=== PATIENT | female | born 1990 | race Caucasian/White ===

== ENCOUNTER 2020-12-10 16:53 | Outpatient (REF) | payer BC, SELFPAY ==
[2020-12-10 19:49] LABS: Bilirubin Negative (Negative); Blood Negative (Negative); Clarity Clear (Clear); Glucose Negative (Negative); Ketones Trace mg/dL (Negative); Leukocyte Esterase Negative (Negative); Nitrite Positive (Negative); Specific Gravity 1.015 (1.005-1.025); Urobilinogen 0.2 EU/dL (Up TO 0.2)
[2020-12-10 20:12] LABS: FREE T4 0.96 ng/dL (0.76-1.46); TSH 0.78 uIU/mL (0.36-3.74)
[2020-12-10 20:20] LABS: Bacteria Many HPF (Negative); C & S Indicated? Yes; Casts Negative LPF (Negative); Crystals Negative HPF (Negative); Epithelial Cells Few HPF (Negative); Mucus Negative (Negative); RBC Negative HPF (0-2)
== END 2020-12-10 16:54 | disposition home or self-care (01) ==
LOC: NCHCN 16:53
PROVIDERS: PCP Physician Assistant; Visit Provider Physician Assistant
DX: N32.81 Overactive bladder (principal); K59.09 Other constipation
CPT/HCPCS: 87077; 81003; 81015; 84439; 84443; 87086; 87186

== ENCOUNTER 2022-01-04 15:00 | Outpatient (REF) | payer BC, SELFPAY ==
--- NOTE | 2022-01-04 14:58 | PAPFT_PTH ---
PATIENT: Olya Trujillo [id number] AGE/SX: 31/F ROOM: RE01/04/[address]: Malcolm Spring : 1990 BED: DIS: 01/04/2022 SPEC #: [id number] RECD: 01/05/22 12:50 STATUS: MASSIMO REMaximion #: [id number] MEGHAN: 01/04/22 14:[address]: Malcolm Spring DEPT: [facility] Cytology RECD BY: Lisa Tena Tissues: 1 - CX/ENDOCX FOR PAP SMEARS Procedures: PAP THIN PREP/UVM Screening Comments: [id number] (CHLAMYDIA/GC)
[2022-01-06 15:01] LABS: Chlamydia Result Negative (Negative); GC Result Negative (Negative)
== END 2022-01-04 15:01 | disposition home or self-care (01) ==
LOC: NCHCN 15:00
PROVIDERS: PCP Physician Assistant; Visit Provider Physician Assistant
DX: Z12.4 Encounter for screening for malignant neoplasm of cervix (principal); Z11.3 Encounter for screening for infections with a predominantly sexual mode of transmission
CPT/HCPCS: 87491; 87591; 88142

== ENCOUNTER 2022-04-21 18:20 | Outpatient (REF) | payer OTHER, SELFPAY ==
[2022-04-23 08:54] LABS: HBs Antibody, Quant <3.1 mIU/mL (See Note); Hepatitis B Surface Ab Negative (See Note)
[2022-04-23 09:39] LABS: Hepatitis C Ab w Rflx HCV PCR Negative (Negative)
[2022-04-23 10:01] LABS: HIV-1/2 Ag & Ab Screen Negative (Negative)
[2022-04-28 12:12] LABS: HSV Type 1 Ab, IgG Negative (Negative); HSV Type 2 Ab, IgG Positive (Negative)
== END 2022-04-21 18:21 | disposition home or self-care (01) ==
LOC: LBN 18:20
PROVIDERS: PCP Physician Assistant; Visit Provider Physician Assistant Medical
DX: Z11.4 Encounter for screening for human immunodeficiency virus [HIV] (principal); Z11.59 Encounter for screening for other viral diseases; Z11.3 Encounter for screening for infections with a predominantly sexual mode of transmission
CPT/HCPCS: 86706; 86803; 87389; 86695; 86696

== ENCOUNTER 2022-06-21 11:54 | Emergency (ER) | payer OTHER, SELFPAY ==
[2022-06-21 12:16] VITALS: BP 117/77; PULSE 68; RESP 18; TEMP 36.9; O2SAT 98
[2022-06-21 14:10] LABS: Bilirubin Negative (Negative); Blood Trace-lysed (Negative); Clarity Clear (Clear); Glucose Negative (Negative); Ketones Negative (Negative); Leukocyte Esterase Trace (Negative); Nitrite Negative (Negative); Specific Gravity 1.015 (1.005-1.025); Urobilinogen 0.2 EU/dL (Up TO 0.2)
[2022-06-21 14:24] LABS: Bacteria Few HPF (Negative); C & S Indicated? No; Casts Negative LPF (Negative); Crystals Negative HPF (Negative); Epithelial Cells Few HPF (Negative); Mucus Negative (Negative); Other Cells Negative (Negative); RBC 0-2 HPF (0-2)
--- NOTE | 2022-06-21 15:17 | ED.GENADUL_ITS ---
Discharge Plan Disposition Patient Disposition: HOME Condition: Good Discharge Details Clinical Impression: UTI (urinary tract infection) Primary Care Provider: Malcolm Spring ED Provider: Navdeep Irwin Home Meds and New Rx's Prescriptions: New cephalexin 500 mg capsule 500 mg PO QID 5 Days Qty: 20 0RF Discharge Instructions Instructions: Urinary Tract Infection in Women (ED) Additional Instructions: At this time you have evidence of mild urinary tract infection. Please take the antibiotic as directed. Please take cranberry concentrate to help you as you leave the infection. Please drink plenty fluids and stay well-hydrated. If you notice any worsening of your symptoms, or any new symptoms such as vomiting, diarrhea, fever, chills, shortness of breath, chest pain, numbness, weakness, or fainting , please return immediately to the emergency department for reevaluation. Please follow up with your primary care provider as soon as possible for reassessment and reevaluation. As always, it was a pleasure participating in your medical care today. Referrals: Malcolm Spring [Primary Care Provider] - Discharge Data Discharge Date/Time-TO BE ENTERED AT DEPARTURE: 06/21/22 15:35 Medical Decision Making This is a 32-year-old female past medical history positive for urinary tract infections who presents today for 4 days of burning and mild dysuria. Patient states that she feels slightly off whenever she gets a urinary tract infection, and on her last UTI she was disoriented and very confused. She denies any disorientation now, and of note this is different from what the triage note stated however this is in fact the patient's current history. She denies fever or chills. No other complaints at this time. She does admit to being sexually active with a trusted partner and they will occasionally use protection. She denies any vaginal discharge. No abdominal pain. Exam demonstrates nontender abdomen, no flank or CVA tenderness. Vital signs are stable. Urinalysis shows trace leuk esterase, and a few WBCs. Symptoms appear consistent with a mild early urinary tract infection. Will give Keflex. Symptoms inconsistent with pyelonephritis. Discussed red flags for which to return. I have extensively reviewed the treatment plan and discharge instructions with the patient. I have addressed all patient concerns at this time. The patient was made aware of what symptoms to monitor for that would warrant a return to the emergency department. Discussed the plan with the patient, they demonstrate verbal understanding and agreement with our assessment and plan at this time. The documentation in this chart was dictated using [employer] dictation software. Please excuse any dictation errors. HPI General Date/Time Provider Initiated Documentation: 06/21/22 14:07 . HPI Narrative: This is a 32-year-old female past medical history positive for urinary tract infections who presents today for 4 days of burning and mild dysuria. Patient states that she feels slightly off whenever she gets a urinary tract infection, and on her last UTI she was disoriented and very confused. She denies any disorientation now, and of note this is different from what the triage note stated however this is in fact the patient's current history. She denies fever or chills. No other complaints at this time. She does admit to b eing sexually active with a trusted partner and they will occasionally use protection. She denies any vaginal discharge. No abdominal pain. Related Data Home Medications Medication Instructions Recorded Confirmed cephalexin 500 mg capsule 500 mg PO QID 5 days #20 caps 06/21/22 Previous Rx's Medication Instructions Recorded cephalexin 500 mg capsule 500 mg PO QID 5 days #20 caps 06/21/22 General Stated Complaint: Urinary NIKUNJ: 3 Review of Systems All systems reviewed & are unremarkable except as noted in HPI and below PFSH All Active Problems UTI (urinary tract infection) (Acute) Social History Smoking risk assessment performed?: No Do you feel safe at home: Yes Do you feel safe in your relationship?: Yes Exam Narrative Exam Narrative: 1.Const: Well-nourished, Well-developed, appearing stated age 2.Eyes: PERRL, no conjunctival injection, and symmetrical lids. 3.ENT: Atraumatic external nose and ears. Moist MM. Neck: Symmetric, trachea midline, No thyromegaly. 4.CVS: +S1/S2, No murmurs or gallops. Peripheral pulses 2+ and equal in all extremities. Brisk capillary refill in all extremities. 5.RESP: Unlabored respiratory effort. Clear to auscultation bilaterally. No wheezes rales or rhonchi 6.GI: Soft, Nontender/Nondistended, No hepatosplenomegaly. No guarding or rebound. No suprapubic or abdominal tenderness. No flank or CVA tenderness. 7.MSK: Normocephalic/Atraumatic, Extremities w/o deformity or ttp No cyanosis or clubbing, Normal movement of all extremities 8.Skin: Warm, Dry. No rashes or lesions. 9.Neuro: gynecology teacher II-XII grossly intact. Sensation grossly intact, no focal neurologic deficits. 10.Psych: (AAO) x3. Appropriate mood and affect Course Vital Signs Vital signs: Vital Signs Temperature 36.9 C 06/21/22 12:16 Pulse 68 06/21/22 12:16 Respiratory Rate 18 06/21/22 12:16 Blood Pressure 117/77 06/21/22 12:16 Pulse Oximetry 98 06/21/22 12:16 Temperature 36.9 C 06/21/22 12:16 Temperature Source Oral 06/21/22 12:16 Pulse 68 06/21/22 12:16 Respiratory Rate 18 06/21/22 12:16 Respiratory Effort Non-Labored 06/21/22 13:35 Blood Pressure 117/77 06/21/22 12:16 Blood Pressure Position Sitting 06/21/22 12:16 Pulse Oximetry 98 06/21/22 12:16 Oxygen Delivery Method Room Air 06/21/22 12:16 Oxygen Flow Rate 0 06/21/22 12:16 Lab/Test Results Lab/Test Results: Laboratory Tests Range/Units 06/21/22 12:35 Urine Color (Yellow) Yellow Urine Clarity (Clear) Clear Urine pH (5-8) 7.0 Ur Specific [place] (1.005-1.025) 1.015 Urine Protein (Negative) mg/dL Negative Urine Ketones (Negative) mg/dL Negative Urine Blood (Negative) Trace-lysed H Urine Nitrite (Negative) Negative Urine Bilirubin (Negative) Negative Urine Urobilinogen (Up TO 0.2) EU/dL 0.2 Ur Leukocyte Esterase (Negative) Trace H Urine RBC (0-2) HPF 0-2 Urine WBC (0-5) HPF 3-5 Ur Epithelial Cells (Negative) HPF Few Urine Crystals (Negative) HPF Negative Urine Bacteria (Negative) HPF Few Urine Casts (Negative) LPF Negative Urine Mucus (Negative) Negative Urine Other (Negative) Negative Ur Culture Indicated? No Urine Glucose (Negative) mg/dL Negative POC- Test(urine) Negative
== END 2022-06-21 15:35 | disposition home or self-care (01) ==
PROVIDERS: Student in an Organized Health Care Education/Training Program; Emergency Provider Student in an Organized Health Care Education/Training Program; PCP Physician Assistant
DX: N39.0 Urinary tract infection, site not specified
CPT/HCPCS: 36416; 81025; 82962; 99283; 81003; 81015; 99284

== ENCOUNTER 2023-01-19 17:29 | Outpatient (REF) | payer OTHER, SELFPAY | END 2023-01-19 17:30 | disposition home or self-care (01) | LOC: NCHCN 17:29 | PROVIDERS: PCP Physician Assistant; Visit Provider Physician Assistant | DX: R30.0 Dysuria (principal) | CPT/HCPCS: 87077; 87086; 87186 ==

== ENCOUNTER 2024-05-07 02:38 | Outpatient (CLI) | payer MEDICAID, SELFPAY ==
--- OUTSIDE RECORDS SUMMARY | 2024-05-07 02:40 | XMS_ITS | Clinical Summary ---
Author Organization [facility] [place] [address] Care Team Providers Care Barrel Ribs Solderer Name Role Phone Malcolm Spring Primary Care Provider Social History Tobacco Use Types Packs/Day Years Used Date Smoking Tobacco: Never Assessed Sex and Gender Information Value Date Recorded Sex Assigned at Not on file Gender Identity Not on file Sexual Orientation Not on file Plan of Treatment Health Maintenance Due Date Last Done Comments HIV screen 01/20/2010 Hepatitis C Screening 01/20/2010 Hepatitis B vaccine (0-59 yrs) (1) 01/20/2011 Tdap adult 01/20/2011 Tetanus vaccine 01/20/2011 HPV test 01/20/2022 PAP Smear 01/20/2022 Covid-19 Vaccine ( - 2022-24 season) 2023 Influenza (Flu) vaccine (1 o f 1 - Influenza standard series) 06/10/2024 Care Teams Barrel Ribs Solderer Relationship Specialty Start Date End Date Malcolm Spring PA [facility] [address] [place], [place] [address] PCP - General Internal Medicine 08/08/21
--- OUTSIDE RECORDS SUMMARY | 2024-05-07 02:40 | XMS_ITS | Encounter Summary ---
Author Organization [facility] Address [address] [place] [address] Care Team Providers Care Wind Energy Mechanic Name Role Phone Blayne Song APRN Primary Care Provider [phone] Encounter Details Date Type Department Care Team (Late st Contact Info) Description 06/13/2018 Phlebotomy Only [facility] - [address] [address] Personal Security Specialist, Outpatient Family history of Qvobeie-Pvhog-Rmywo disease (Primary Dx) Social History Tobacco Use Types Packs/Day Years Used Date Smoking Tobacco: Never Alcohol Use Standard Drinks/Week Comments No 0 (1 standard drink = 0.6 oz pur e alcohol) Sex and Gender Information Value Date Recorded Sex Assigned at Not on file Gender Identity Not on file Sexual Orientation Not on file documented as of this encounter Plan of Treatment Not on file documented as of this encounter Procedures Procedure Name Priority Date/Time Associated Diagnosis Comments MISCELLANEOUS TEST, NON [place] Routine 06/13/2018 16:19 EDT Family history of Afzwkqi-Dmrum-Seyh h disease documented in this encounter Results * MISCELLANEOUS TEST, NON [place] (06/13/2018 16:19 EDT) Test Name TESTING FOR KNOWN FAMILIAL GENETIC MUTATION IN MPZ GENE, C.314C>T, AT [facility], 3 06/13/2018 16:11 EDT [facility] Comment:5 ML EDTA PURPLE TOP , ROOM TEMP Result LAB ORDER CORRECTION 06/13/2018 16:46 EDT [facility] Comment:ORDERED SHIP1 Date Sample Shipped 06/13/18 06/13/2018 16:31 EDT [facility] Specimen of unknown material (specimen) TOPOGRAPHY UNKNOWN / Unknown 06/13/2018 16:19 EDT 06/13/2018 16:30 EDT Rere Pabon MD CHEMISTRY & BLOOD GAS ORDERABLES [facility] [address] [place] [address] documented in this encounter Visit Diagnoses Diagnosis Family history of Rovhaen-Lysgo-Tbidz disease- Primary Family history of other neurological diseases documented in this encounter Care Teams Wind Energy Mechanic Relationship Specialty Start Date End Date Blayne Song APRN [address] [place] [address] [address] [place] [address] PCP - General 02/21/14 documented as of this encounter
--- OUTSIDE RECORDS SUMMARY | 2024-05-07 02:40 | XMS_ITS | Encounter Summary ---
Author Organization [facility] Address [address] [place] [address] Care Team Providers Care Jinriksha Driver Name Role Phone SongBrianna Tracy WARD Primary Care Provider [phone] Reason for Referral * Consult (Routine) - Closed Specialty Diagnoses / Procedures Referred By Contabdullahi salazar Referred To Contact Neurology Diagnoses Panchito Saldivar MD [address] [place] [phone] [facility] Neurology Main [place] [address] [place] [address] Referral ID Status Reason Start Date Expiration Date V isits Requested Visits Authorized [id number] Closed Specialty Services Required 02/21/2014 1 1 Question Answer Reason for Request: Evidence of altered sensorium Comments After EEG is scheduled Reason for Visit * Reason Comments Urinary Tract Infection Chronic UTI's. P t was seen yesterday and was put on ABX (?). Pt then experienced hallucinations last night per mom. Pt not placed on any narcotics. VSS, afebrile. A/O Encounter Details Date Type Department Care Team (Late st Contact Info) Description 02/21/2014 15:59 EDT - 02/21/2014 20:26 EDT Emergency [facility] Emergency Department - [address] [address] Panchito Lucero MD [address] [place] [address], [place] [phone] Emergency, MD Devika Adkins (Primary Dx) Discharge Disposition: Home or Self Care Social History Tobacco Use Types Packs/Day Years Used Date Smoking Tobacco: Never Alcohol Use Standard Drinks/Week Comments No 0 (1 standard drink = 0.6 oz pur e alcohol) Sex and Gender Information Value Date Recorded Sex Assigned at Not on file Gender Identity Not on file Sexual Orientation Not on file documented as of this encounter Last Filed Vital Signs Vital Sign Reading Time Taken Comments Blood Pressure 112/67 02/21/2014 1622 EDT Pulse 79 02/21/2014 1622 EDT Temperature 36.4 ??C (97.5 ??F) 02/21/2014 1622 EDT Respiratory Rate 16 02/21/2014 1622 EDT Oxygen Saturation 100% 02/21/2014 1622 EDT Inhaled Oxygen Concentration - - Weight 76.2 kg (168 lb) 02/21/2014 1622 EDT Height 160 cm (5' 3) 02/21/2014 1622 EDT Body Mass Index 29.76 02/21/2014 1622 EDT documented in this encounter Discharge Instructions * Discharge Instructions* Panchito Lucero MD - 02/21/2014 20:14 EDT Return to the emergency department if symptoms worsen or new symptoms develop. I discussed your case with neurology this evening. You will be scheduled for an outpatient EEG and then a followup with neurology. documented in this encounter Discharge Disposition Disposition Code Departure Means Destination Comment s Home or Self Care Walk-out Home mother driving. documented in this encounter ED Notes * Karina Ngo RN - 02/21/2014 1936 EDT Pt alert, oriented. Good thought flow. Asking appro questions. Looks well. Good color. Family in room w; her. * Elgin Balderas - 02/21/2014 1165 EDT Blood drawn via saline lock per protocol, tiger and purple tube(s) sent to lab per order. * Panchito Lucero MD - 02/21/2014 1813 EDT DOS: 02/21/2014 Chief Complaint Patient presents with ??? Urinary Tract Infection Chronic UTI's. Pt was seen yesterday and was put on ABX (?). Pt then experienced hallucinations last night per mom. Pt not placed on any narcotics. VSS, afebrile. A/O The patient is a 24 y.o. female who presents today with Urinary Tract Infection HPI Comments: The patient is a 24-year-old female with a history of recurrent urinary tract infections presents with a 2 day history of recurrent spells. Patient describes transient forgetfulness accompanied by headaches. The forgetfulness lasts from seconds to minutes . The example that she gives is that she cannot remember her middle name. Patient also describes recurrent headaches which are unusual for her. Headaches are described as being behind her eyes. Patient describes feeling nauseated. Patient also describes vomiting. Patient denies distal numbness or tingling. Patient denies focal weakness. Patient denies blurred vision but has 2-3 seconds of visual hallucinations in which the bathroom colors she described are different than what they really are and positions of objects in the bathroom are in different places. Patient states that she snaps out of these episodes. Patient denies facial pain, neck pain. Patient denies cough, chest congestion or shortness of breath. Patient denies abdominal pain but has had recurrent episodes of nausea and vomiting. Patient denies gross hematuria. Patient denies drugs or alcohol. Patient denies a family history of seizure disorder. Patient denies a history of psychiatric illness. Patient now presents for further evaluation and treatment. The history is provided by the patient. Seizures Seizure activity on arrival: no Seizure type: Partial complex Preceding symptoms: headache, nausea and vision change Preceding symptoms: no sensation of an aura present, no dizziness, no euphoria, no hyperventilationand no numbness Initial focality: None Episode characteristics: disorientation Episode characteristics: no abnormal movements, no combativeness, no eye deviation, no focal shaking, no generalized shaking, no incontinence, no stiffening and no tongue biting Postictal symptoms: no confusion, no memory loss and no somnolence Severity: Mild Duration: 2 seconds Progression: Unchanged Context: stress Context: not alcohol withdrawal, not change in medication, not sleeping less, not drug use, not family hx of seizures, not fever, not intracranial shunt, not possible hypoglycemia, not possible medication ingestion and not previous head injury Recent head injury: No recent head injuries RECREATION SPECIALIST treatment: None History of seizures: no Review of Systems Constitutional: Negative for fever and chills. HENT: Negative for congestion, sore throat, facial swelling, rhinorrhea and neck pain. Eyes: Negative for photophobia, pain and visual disturbance. Respiratory: Negative for chest tightness and shortness of breath. Gastrointestinal: Positive for nausea and vomiting. Negative for diarrhea, abdominal distention andanal bleeding. Musculoskeletal: Negative for myalgias and arthralgias. Skin: Negative for rash. Neurological: Positive for seizures and headaches. Negative for dizziness, syncope, facial asymmetry, speech difficulty, weakness, light-headedness and numbness. Hematological: Does not bruise/bleed easily. Psychiatric/Behavioral: Negative for confusion. The patient is nervous/anxious. All other systems reviewed and are negative. History reviewed. No pertinent past medical history. History reviewed. No pertinent past surgical history. No Known Allergies History Substance Use Topics ??? Smoking status: Never Smoker ??? Smokeless tobacco: Not on file ??? Alcohol Use: No No family history on file. Vital Signs Vitals Reassessment?: Yes Temp: 36.4 ??C (97.5 ??F) Temp src: Tympanic Pulse: 79 Resp: 16 SpO2: 100 % BP: 112/67 mmHg BP Device: BP Machine Patient Position: Sitting BP Cuff Location: Left arm Physical Exam Nursing note and vitals reviewed. Constitutional: She is oriented to person, place, and time. She appears well- developed and well-nourished. No distress. HENT: Head: Normocephalic and atraumatic. Right Ear: External ear normal. Left Ear: External ear normal. Nose: Nose normal. Mouth/Throat: Oropharynx is clear and moist. Eyes: Conjunctivae and EOM are normal. Pupils are equal, round, and reactive to light. Left eye exhibits no discharge. Neck: Normal range of motion. Neck supple. Cardiovascular: Normal rate, regular rhythm, normal heart sounds and intact distal pulses. Pulmonary/Chest: Effort normal and breath sounds normal. No respiratory distress. She has no wheezes. She exhibits no tenderness. Abdominal: Soft. Bowel sounds are normal. There is no tenderness. Musculoskeletal: Normal range of motion. She exhibits no edema and no tenderness. Neurological: She is alert and oriented to person, place, and time. She has normal strength and normal reflexes. No cranial nerve deficit or sensory deficit. Coordination normal. Skin: Skin is warm and dry. No rash noted. She is not diaphoretic. Psychiatric: She has a normal mood and affect. Her behavior is normal. Judgment and thought contentnormal. CT HEAD WO CONTRAST Final result not shown here.: CT HEAD (Canceled) Radiology orders: CT HEAD WO CONTRAST Imaging Results CT HEAD WO CONTRAST (Final result) Result time: 02/22/14 10:35:[address] HEAD Final result Narrative: CT HEAD WO CONTRAST 02/21/2014 6:32 PM Signs and Symptoms/Comments: Headaches Prior exam: None Technique: Axial plane from base to vertex without contrast. Coronal reformats. Soft tissue and bone windows. Findings: Scalp soft tissues are unremarkable. Bone windows are unremarkable. Visualized paranasal sinuses are clear. Mastoid air cells and tympanic cavities are well-aerated bilaterally. Mild low-lying right cerebellar tonsil. Normal position of the left cerebellar tonsil. Ventricles are normal in size and position. No shift. No hydrocephalus. No acute hyperdense intracranial hemorrhage, mass or acute infarction. Normal john-white differentiation. No extracerebral fluid collections. Basal cisterns are patent. Orbits are unremarkable. Impression: 1. Mild low-lying right cerebellar tonsil. 2. Otherwise normal CT head without contrast. 3. Visualized paranasal sinuses are clear. Mastoid air cells and tympanic cavities are well-aerated. 4. Preliminary report was provided by Dr. Grove and Gayatri to Dr. Lucero at 6:50 PM on 02/21/14. Preliminary result Narrative: PRELIMINARY REPORT CT HEAD WO CONTRAST 02/21/2014 6:32 PM Signs and Symptoms/Comments: Headaches Prior exam: None Technique: Axial plane from base to vertex without contrast. Coronal reformats. Soft tissue and bone windows. Findings: Scalp soft tissues are unremarkable. Bone windows are unremarkable. Visualized paranasal sinuses are clear. Mastoid air cells and tympanic cavities are well-aerated bilaterally. Mild low-lying right cerebellar tonsil. Normal position of the left cerebellar tonsil. Ventricles are normal in size and position. No shift. No hydrocephalus. No acute hyperdense intracranial hemorrhage, mass or acute infarction. Normal john-white differentiation. No extracerebral fluid collections. Basal cisterns are patent. Orbits are unremarkable. Impression: 1. Mild low-lying right cerebellar tonsil. 2. Otherwise normal CT head without contrast. 3. Visualized paranasal sinuses are clear. Mastoid air cells and tympanic cavities are well-aerated. 4. Preliminary report was provided by Dr. Grove and Gayatri to Dr. Lucero at 6:50 PM on 02/21/14. Procedures ED Course: A medical screening exam was performed. The patient is a 24-year-old female who presents with a 48 hour history of recurrent episodes of headache, spells of forgetfulness, and visual abnormalities. Physical exam as above. General awake alert, behaving normally with a nonfocal neurologic exam. Head CT-reviewed by myself and the radiologist, normal head CT Laboratory tests-reviewed by myself Urine toxicology-negative Urine -negative Discussed case with neurology resident Dr. Donovan Gutierres. Patient arrange to have an outpatient EEG and followup with neurology. Patient discharged with her mother. Patient asymptomatic at the time of discharge. Disposition: Discharged The patient's pain was managed to an adequate level weighing risk vs. benefit of further medications. Upon departure from the Emergency Department, the patient's pain was 0 on a zero to ten scale. Condition at departure from the Emergency Department: Good There are no discharge medications for this patient. MDM Number of Diagnoses or Management Options Spells: new, needed workup Amount and/or Complexity of Data Reviewed Clinical lab tests: ordered and reviewed Tests in the radiology section of CPT??: ordered and reviewed Discussion of test results with the performing providers: yes (Radiologist) Obtain history from someone other than the patient: yes (Patient's mother) Discuss the patient with other providers: yes (Discussed case with neurology resident) Independent visualization of images, tracings, or specimens: yes (Head CT scan, laboratory tests, toxicology screen) Risk of Complications, Morbidity, and/or Mortality Presenting problems: moderate Diagnostic procedures: moderate Management options: moderate General comments: 4 Patient Progress Patient progress: stable Final diagnoses: Spells PCP: BRIANNA SONG 02/23/2014 7:27 documented in this encounter Plan of Treatment Scheduled Referrals Name Type Priority Associated Diagnoses Orde r Schedule AMB CONS/FOLLOW UP NEUROLOGY Outpatient Referral Routine Spells Ordered: 02/21/2014 documented as of this encounter Procedures Procedure Name Priority Date/Time Associated Diagnosis Comments DRUG SCREEN 11, URINE STAT 02/21/2014 19:24 EDT POCT TEST, VISUAL READ STAT 02/21/2014 18:[address] HEAD WO CONTRAST 02/21/2014 1 8:32 EDT SCREENING GLUCOSE STAT 02/21/2014 18: 23 EDT DIFFERENTIAL STAT 02/21/2014 18:23 EDT COMPLETE BLOOD COUNT STAT 02/21/2014 18:23 EDT COMPLETE BLOOD COUNT AND DIFFERENTIAL STAT 02/21/2014 18:23 EDT BUN STAT 02/21/2014 18:23 EDT CREATININE STAT 02/21/2014 18:23 EDT ELECTROLYTES STAT 02/21/2014 18:23 EDT POCT URINE DIPSTICK, CLINITEK STAT 02/21/2014 17:01 EDT documented in this encounter Results * DRUG SCREEN COMPREHENSIVE (02/21/2014 19:24 EDT) Amphetamine Screen, Urine Negative screen. [facility] Comment: Confirmation testing available upon request. Suitable for medical purposes only. Will not detect all drugs within class. Cutoff = 1000 ng/ml Specimen type is urine. Barbiturate Screen, Urine Negative screen. [facility] Comment: Confirmation testing available upon request. Suitable for medical purposes only. Will not detect all drugs within class. Cutoff = 300 ng/ml Specimen type is urine. Benzodiazepine Screen, Urine Negative screen. [facility] Comment: Confirmation testing available upon request. Suitable for medical purposes only. Will not detect all drugs within class. Assay less sensitive to Lorazepam and metabolites. Cutoff = 200 ng/ml Specimen type is urine. Cannabinoid Scrn, Ur Negative screen. [facility] Comment: Confirmation testing available upon request. Suitable for medical purposes only. Will not detect all drugs within class. Cutoff = 50 ng/ml Specimen type is urine. Methadone Screen Negative screen. [facility] Comment: Confirmation testing available upon request. Suitable for medical purposes only. Will not detect all drugs within class. Cutoff = 300 ng/ml Specimen type is urine. Opiate Scrn, Ur Negative screen. [facility] Comment: Confirmation testing available upon request. Suitable for medical purposes only. Will not detect all drugs within class. Cutoff = 300 ng/ml Assay less sensitive to oxycodone and metabolites. Assay does not detect methadone. Specimen type is urine. Oxycodone Screen Negative screen. [facility] Comment: Confirmation testing available upon request. Suitable for medical purposes only. Will not detect all drugs within class. Cutoff = 300 ng/ml Specimen type is urine. Cocaine Metabolites Negative screen. [facility] Comment: Confirmation testing available upon request. Suitable for medical purposes only. Will not detect all drugs within class. Cutoff = 300 ng/ml Specimen type is urine. Urine specimen (specimen) URINE / Unknown 02/21/2014 19:24 EDT 02/21/2014 19:31 EDT Panchito Lucero MD GEN LAB UNIT COLLECT ORDERABLES Performing Organization Address City/State/[facility] Co de Phone Number [facility] [address] [place] [address] * POCT URINE TEST (02/21/2014 18:37 EDT) Test, Urine, POC Negative Reference Range, Negative Control Line Present Yes Background Clear? Yes Urine specimen (specimen) 02/21/2014 18:37 EDT Panchito Lucero MD POINT OF CARE TEST O RDERABLES * CT HEAD WO CONTRAST (02/21/2014 18:32 EDT) Anatomical Region Laterality Modality Other 02/21/2014 18:3 2 EDT 02/22/2014 10:35 EDT Narrative 02/22/2014 10:[address] HEAD WO CONTRAST ??02/21/2014 6:32 PM Signs and Symptoms/Comments: ??Headaches Prior exam: None Technique: Axial plane from base to vertex without contrast. Coronal reformats. Soft tissue and bone windows. Findings: Scalp soft tissues are unremarkable. Bone windows are unremarkable. Visualized paranasal sinuses are clear. Mastoid air cells and tympanic cavities are well-aerated bilaterally. Mild low-lying right cerebellar tonsil. Normal position of the left cerebellar tonsil. Ventricles are normal in size and position. No shift. No hydrocephalus. No acute hyperdense intracranial hemorrhage, mass or acute infarction. Normal john-white differentiation. No extracerebral fluid collections. Basal cisterns are patent. Orbits are unremarkable. Impression: 1. Mild low-lying right cerebellar tonsil. 2. Otherwise normal CT head without contrast. 3. Visualized paranasal sinuses are clear. Mastoid air cells and tympanic cavities are well-aerated. 4. Preliminary report was provided by Dr. Grove and Gayatri to Dr. Lucero at 6:50 PM on 02/21/14. Procedure Note 02/22/2014 CT HEAD WO CONTRAST 02/21/2014 6:32 PM Signs and Symptoms/Comments: Headaches Prior exam: None Technique: Axial plane from base to vertex without contrast. Coronal reformats. Soft tissue and bone windows. Findings: Scalp soft tissues are unremarkable. Bone windows are unremarkable. Visualized paranasal sinuses are clear. Mastoid air cells and tympanic cavities are well-aerated bilaterally. Mild low-lying right cerebellar tonsil. Normal position of the left cerebellar tonsil. Ventricles are normal in size and position. No shift. No hydrocephalus. No acute hyperdense intracranial hemorrhage, mass or acute infarction. Normal john-white differentiation. No extracerebral fluid collections. Basal cisterns are patent. Orbits are unremarkable. Impression: 1. Mild low-lying right cerebellar tonsil. 2. Otherwise normal CT head without contrast. 3. Visualized paranasal sinuses are clear. Mastoid air cells and tympanic cavities are well-aerated. 4. Preliminary report was provided by Dr. Lira to Dr. Lucero at 6:50 PM on 02/21/14. Panchito Lucero MD IMG CT ORDERABLES * DIFFERENTIAL (02/21/2014 18:23 EDT) % Neutrophils 55.8 45.5 - 79.7 % [facility] % Lymphocytes 30.8 15.0 - 46.8 % [facility] % Monocytes 10.3 1.8 - 12.0 % [facility] % Eosinophils 2.5 0.6 - 6.9 % [facility] % Basophils 0.6 0.2 - 1.4 % [facility] ABS Neutrophils 3.84 2.20 - 8.85 K/cmm [facility] ABS Lymphs 2.12 1.09 - 3.30 K/cmm [facility] ABS Monocytes 0.71 0.1 - 0.8 K/cmm [facility] ABS Eosinophils 0.17 0.03 - 0.61 K/cmm [facility] ABS Basophils 0.04 0.01 - 0.11 K/cmm [facility] Type of Diff: Automated [facility] 02/21/2014 18:2 3 EDT 02/21/2014 18:46 EDT Panchito Lucero MD HEMATOLOGY & PF4 ORD ERABLES [facility] [address] [place] [address] * HEMAGRAM (02/21/2014 18:23 EDT) WBC 6.89 4.0 - 12.4 K/cmm [facility] RBC 4.30 3.86 - 5.04 M/cmm [facility] Hemoglobin 13.0 11.6 - 15.2 gm/dl [facility] HCT 38.4 34.9 - 44.4 % [facility] MCV 89 81 - 98 fl [facility] MCH 30.3 26.7 - 33.3 pg [facility] MCHC 34.0 32.1 - 35.9 gm/dl [facility] PLT 180 141 - 320 K/cmm [facility] RDW-CV 12.7 11.7 - 14.6 % [facility] 02/21/2014 18:2 3 EDT 02/21/2014 18:46 EDT Panchito Lucero MD HEMATOLOGY & PF4 ORD ERABLES Performing Organization Address [facility] Co de Phone Number [facility] [address] [place] [address] * CREATININE (02/21/2014 18:23 EDT) Creatinine 0.61 0.52 - 1.04 mg/dl [facility] GFR, Calculated >60 >60 ml/min/1.7 3m2 [facility] Blood specimen (specimen) 02/21/2014 18:23 EDT 02/21/2014 18:46 EDT Panchito Lucero MD CHEMISTRY & BLOOD GA S ORDERABLES Performing Organization Address [facility] Co de Phone Number [facility] [address] [place] [address] * (ABNORMAL) BUN (02/21/2014 18:23 EDT) BUN <3(L) 10 - 26 mg/dl [facility] Blood specimen (specimen) 02/21/2014 18:23 EDT 02/21/2014 18:46 EDT Panchito Lucero MD CHEMISTRY & BLOOD GA S ORDERABLES Performing Organization Address [facility] Co de Phone Number [facility] [address] [place] [address] * ELECTROLYTES (02/21/2014 18:23 EDT) Sodium 141 136 - 145 mEq/L [facility] Potassium 4.1 3.5 - 5.0 mEq/L [facility] Chloride 102 96 - 110 mEq/L [facility] CO2 28 24 - 32 mEq/L [facility] Blood specimen (specimen) 02/21/2014 18:23 EDT 02/21/2014 18:46 EDT Panchito Lucero MD CHEMISTRY & BLOOD GA S ORDERABLES Performing Organization Address [facility]/ZIP Co de Phone Number [facility] [address] [place] [address] * SCREENING GLUCOSE (02/21/2014 18:23 EDT) Glucose, Screening 100 70 - 100 mg/dl [facility] Blood specimen (specimen) 02/21/2014 18:23 EDT 02/21/2014 18:46 EDT Panchito Lucero MD CHEMISTRY & BLOOD GA S ORDERABLES Performing Organization Address [facility] Co de Phone Number [facility] [address] [place] [address] * (ABNORMAL) POCT URINE DIPSTICK (02/21/2014 17:01 EDT) Color YELLOW [facility] Clarity, UA Clear [facility] Glucose Neg Neg [facility] Bilirubin Neg Neg [facility] Ketones Neg Neg [facility] Specific [place] 1.010 1.001 - 1.035 [facility] Blood Trace(A) Neg [facility] pH 7.0 4.6 - 8.0 [facility] Protein Neg Neg [facility] Urobilinogen 0.2 0.2 - 1.0 E.U./dl [facility] Nitrite Neg Neg [facility] Leuk Esterase Neg Neg HANNAH NIXON [facility]ARA bak[employer] worker ID [id number] [facility] Comment:Test performed at [facility] Urine specimen (specimen) 02/21/2014 17:01 EDT 02/21/2014 17:12 EDT Panchito Lucero MD POINT OF CARE TEST O RDERABLES Performing Organization Address [facility] Co de Phone Number [facility] [address] [place] [address] documented in this encounter Visit Diagnoses Diagnosis Spells- Primary Other convulsions documented in this encounter Orders Nursing Count Last Ordered Date First Orde red Date PULSE OXIMETRY 1 02/21/2014 documented in this encounter Care Teams Jinriksha Driver Relationship Specialty Start Date End Date Brianna Song APRN [address] [place] [address] [address] [place] [address] PCP - General 02/21/14 documented as of this encounter
--- OUTSIDE RECORDS SUMMARY | 2024-05-07 02:40 | XMS_ITS | Encounter Summary ---
Author Organization [facility] Address [address] [place] [address] Care Team Providers Care Auditor Internal Name Role Phone DuncanBlayne Tracy WARD Primary Care Provider [phone] Encounter Details Date Type Department Care Team (Late st Contact Info) Description 06/13/2018 12:28 EDT - 06/13/2018 23:59 EDT Hospital Encounter [facility] - [address] [address] Rere Pabon MD [address] [place] [id number] Discharge Disposition: Home or Self Care Social History Tobacco Use Types Packs/Day Years Used Date Smoking Tobacco: Never Alcohol Use Standard Drinks/Week Comments No 0 (1 standard drink = 0.6 oz pur e alcohol) Sex and Gender Information Value Date Recorded Sex Assigned at Not on file Gender Identity Not on file Sexual Orientation Not on file documented as of this encounter Discharge Diagnoses Diagnosis Z82.0 Family history of epilepsy and other diseases of the nervous system-Z82.0[ICD-10-CM] documented in this encounter Discharge Disposition Disposition Code Departure Means Destination Home or Self Care documented in this encounter Plan of Treatment Not on file documented as of this encounter Procedures Procedure Name Priority Date/Time Associated Diagnosis Comments PATHOLOGY - SCANNED 07/27/2018 15:29 EDT documented in this encounter Results * PATHOLOGY - SCANNED (07/27/2018 15:29 EDT) 07/27/2018 15:2 9 EDT Scan 2 Retail Performance Coach LAB INFO SERVICE AN D SUPPORT & PHONE RESULT documented in this encounter Visit Diagnoses Not on filedocumented in this encounter Care Teams Auditor Internal Relationship Specialty Start Date End Date Blayne Song APRN [address] [place] [address] [address] [place] [address] PCP - General 02/21/14 documented as of this encounter
--- OUTSIDE RECORDS SUMMARY | 2024-05-07 02:40 | XMS_ITS | Encounter Summary ---
Author Organization [facility] Address [address] [place] [address] Care Team Providers Care Automotive Glass Technician Name Role Phone Blayne Song APRN Primary Care Provider [phone] Encounter Details Date Type Department Care Team (Late st Contact Info) Description 06/13/2018 Orders Only [facility] Pediatric Genetics - [facility] [address] [place] [address] Karina Ruth, MS [address] [place], [place] [address] Family history of Ywkmgcp-Kenyr-Uhzic disease (Primary Dx) Social History Tobacco Use [...] on file documented as of this encounter Results * MISCELLANEOUS TEST, NON OTHO (06/13/2018 16:19 EDT) Test Name TESTING FOR KNOWN FAMILIAL GENETIC MUTATION IN MPZ GENE, C.314C>T, AT [facility], 3 06/13/2018 16:11 EDT [facility] Comment:5 ML EDTA PURPLE TOP , ROOM TEMP Result LAB ORDER CORRECTION 06/13/2018 16:46 EDT [facility] Comment:ORDERED SHIP1 Date Sample Shipped 06/13/18 06/13/2018 16:31 EDT [facility] Specimen of unknown material (specimen) TOPOGRAPHY UNKNOWN / Unknown 06/13/2018 16:19 EDT 06/13/2018 16:30 EDT Rere Pabon MD CHEMISTRY & BLOOD GAS ORDERABLES Performing Organization Address City/State/[facility] Co de Phone Number [facility] [address] [place] [address] documented in this encounter Visit Diagnoses Diagnosis Family history of Gklogqr-Apyja-Mdymx disease- Primary Family history of other neurological diseases documented in this encounter Care Teams Automotive Glass Technician Relationship Specialty Start Date End Date Blayne Song APRN [address] [place] [address] [address] [place], [place] [address] PCP - General 02/21/14 documented as of this encounter
--- OUTSIDE RECORDS SUMMARY | 2024-05-07 02:40 | XMS_ITS | Encounter Summary ---
Author Organization [facility] Address [address] [place] [address] Care Team Providers Care Patient Support Representative Name Role Phone Blayne Song APRN Primary Care Provider [phone] Encounter Details Date Type Department Care Team (Late st Contact Info) Description 03/14/2024 Lab Requisition [facility] Pathology & Laboratory Medicine - [facility] [address] [place] [address] Outr Resulting Lab, Provider Social History Tobacco Use Types Packs/Day Years Used Date Smoking Tobacco: Never Alcohol Use Standard Drinks/Week Comments No 0 (1 standard drink = 0.6 oz pur e alcohol) Interpersonal Safety Answer Date Record ed Physically Hurt Never 05/11/2020 Verbally Threaten Not on file 05/11/2020 Sex and Gender Information Value Date Recorded Sex Assigned at Not on file Gender Identity Not on file Sexual Orientation Not on file documented as of this encounter Plan of Treatment Not on file documented as of this encounter Procedures Procedure Name Priority Date/Time Associated Diagnosis Comments PROGESTERONE Routine 03/14/2024 14:22 EDT documented in this encounter Results * PROGESTERONE (03/14/2024 14:22 EDT) Progesterone 13.9 See Table ng/mL 03/14/2024 22:40 EDT [facility] Comment: Female Reference Ranges: PHYSIOLOGICAL STATUS ?REFERENCE RANGE ? Pre-Pubertal: ? <= 0.2 ng/mL Menstruating: (Non-) Follicular Phase: ? <= 1.4 ng/mL Luteal Phase: ? 3.3 - 25.6 ng/mL Mid-luteal Phase: ? 4.4 - 28.0 ng/mL Postmenopausal: ? <= 0.7 ng/mL : -------- First Trimester: ?11.2 - 90.0 ng/mL Second Trimester: ? 25.6 - 89.4 ng/mL Third Trimester: ?48.4 - 422.5ng/mL For ectopic , consult a pathologist. Blood VENOUS BLOOD / Unknown 03/14/2024 14:22 EDT 03/14/2024 21:37 EDT Provider Outr Resulting Lab CHEMISTRY & BLOOD GAS ORDERABLES [facility] [address] [place] [address] documented in this encounter Visit Diagnoses Not on filedocumented in this encounter Care Teams Patient Support Representative Relationship Specialty Start Date End Date Blayne Song APRN [address] [place] [address] [address] [place] [address] PCP - General 02/21/14 documented as of this encounter
--- OUTSIDE RECORDS SUMMARY | 2024-05-07 02:40 | XMS_ITS | Encounter Summary ---
Author Organization [facility] Address [address] [place] [address] Care Team Providers Care School Occupational Therapist Name Role Phone Blayne Song APRN Primary Care Provider [phone] Encounter Details Date Type Department Care Team (Late st Contact Info) Description 03/19/2024 Lab Requisition [facility] Pathology & Laboratory Medicine - [facility] [address] [place] [address] Outr Resulting Lab, Provider Social History Tobacco [...] Priority Date/Time Associated Diagnosis Comments PROGESTERONE Routine 03/19/2024 8:37 EDT documented in this encounter Results * PROGESTERONE (03/19/2024 8:37 EDT) Progesterone 17.3 See Table ng/mL 03/19/2024 22:43 EDT [facility] Comment: Female Reference Ranges: [...] a pathologist. Blood VENOUS BLOOD / Unknown 03/19/2024 8:37 EDT 03/19/2024 22:07 EDT Provider Outr Resulting Lab CHEMISTRY & BLOOD GAS ORDERABLES [facility] [address] [place] [address] documented in this encounter Visit Diagnoses Not on filedocumented in this encounter Care Teams School Occupational Therapist Relationship Specialty Start Date End Date Blayne Song APRN [address] [place] [address] [address] [place] [address] PCP - General 02/21/14 documented as of this encounter
--- OUTSIDE RECORDS SUMMARY | 2024-05-07 02:40 | XMS_ITS | Encounter Summary ---
Author Organization [facility] Address [address] [place] [address] Care Team Providers Care Semiconductors Wafer Breaker Name Role Phone Duncan Blayne Molina APRN Primary Care Provider Reason for Referral * Consult (Routine) - Closed Specialty Diagnoses / Procedures Referred By Huang salazar Referred To Contact Neurology Diagnoses Family history of genetic disease Genetic carrier Rere Pabon MD [address] [place] [address] Alexis Arcos MD [address] [place] [address] Referral ID Status Reason Start Date Expiration Date V isits Requested Visits Authorized [id number] Closed Specialty Services Required 06/28/2018 1 1 Question Answer Reason for Request: 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 Wants to discuss care. Encounter Details Date Type Department Care Team (Late st Contact Info) Description 06/28/2018 Orders Only [facility] - [facility] [place] [address] [place], [place] [address] Karina Ruth, MS [address] [place], [place] [address] Family history of genetic disease (Primary Dx); Genetic carrier Social History Tobacco Use Types Packs/Day Years Used Date Smoking Tobacco: Never Alcohol Use Standard Drinks/Week Comments No 0 (1 standard drink = 0.6 oz pur e alcohol) Sex and Gender Information Value Date Recorded Sex Assigned at Not on file Gender Identity Not on file Sexual Orientation Not on file documented as of this encounter Plan of Treatment Scheduled Referrals Name Type Priority Associated Diagnoses Orde r Schedule AMB CONS/FOLLOW UP NEUROLOGY Outpatient Referral Routine Family history of genetic disease Genetic carrier Ordered: 06/28/2018 documented as of this encounter Visit Diagnoses Diagnosis Family history of genetic disease- Primary Family history of other condition Genetic carrier Other genetic carrier status documented in this encounter Care Teams Semiconductors Wafer Breaker Relationship Specialty Start Date End Date Blayne Song APRN [address] [place] [address] [address] [place] [address] PCP - General 02/21/14 documented as of this encounter
--- OUTSIDE RECORDS SUMMARY | 2024-05-07 02:40 | XMS_ITS | Encounter Summary ---
Author Organization [facility] Address [address] [place] [address] Care Team Providers Care Director Of Special Education Name Role Phone Blayne Song APRN Primary Care Provider [phone] Encounter Details Date Type Department Care Team (Late st Contact Info) Description 04/22/2022 Lab Requisition [facility] Pathology & Laboratory Medicine - [facility] [address] [place] [address] Outr Resulting Lab, Provider Social History Tobacco [...] Procedure Name Priority Date/Time Associated Diagnosis Comments HOLD SST Today 04/21/2022 15:00 EDT HIV 1/2 ANTIGEN AND ANTIBODY, 4TH GENERATION Today 04/21/2022 15:00 EDT documented in this encounter Results * HOLD SST (04/21/2022 15:00 EDT) Hold Hold 04/22/2022 18:47 EDT [facility] Blood VENOUS BLOOD / Unknown 04/21/2022 15:00 EDT 04/22/2022 17:41 EDT Provider Outr Resulting Lab LAB INFO SER VICE AND SUPPORT & PHONE RESULT Performing Organization Address [facility] [[email or web address]] Co de Phone Number [facility] [address] [place] [address] * HIV 1/2 ANTIGEN AND ANTIBODY, 4TH GENERATION (04/21/2022 15:00 EDT) HIV 1 and 2 Antibody/p24 Antigen, 4th Generation Negative Negative 04/23/2022 9:56 EDT [facility] Comment:If acute HIV-1 infec tion is suspected in a high risk patient, submit plasma specimen for HIV-1 RNA quantitation test. Blood VENOUS BLOOD / Unknown 04/21/2022 15:00 EDT 04/22/2022 17:37 EDT Narrative [facility] - 04/23/2022 9:56 EDT Fourth Generation assay performed on the Siemens [employer] XPT. Provider Outr Resulting Lab IMMUNOLOGY A ND SEROLOGY ORDERABLES Performing Organization Address [facility] [[email or web address]] Co de Phone Number [facility] [address] [place] [address] documented in this encounter Visit Diagnoses Not on filedocumented in this encounter Care Teams Director Of Special Education Relationship Specialty Start Date End Date Blayne Song APRN [address] [place] [address] [address] [place], [place] [address] PCP - General 02/21/14 documented as of this encounter
--- OUTSIDE RECORDS SUMMARY | 2024-05-07 02:40 | XMS_ITS | Encounter Summary ---
Author Organization [facility] Address [address] [place] [address] Care Team Providers Care Data Entry Technician Name Role Phone Blayne Song APRN Primary Care Provider [phone] Reason for Visit * Reason Onset Date Comments Other 09/06/2018 Encounter Details Date Type Department Care Team (Late st Contact Info) Description 09/06/2018 Telephone [facility] Pediatric Genetics - [facility] [address] [place], [place] [address] YakelinDemetriaMela Camargo, MS [address] [place], [place] [address] Other Social History Tobacco Use Types Packs/Day Years Used Date Smoking Tobacco: Never Alcohol Use Standard Drinks/Week Comments No 0 (1 standard drink = 0.6 oz pur e alcohol) Sex and Gender Information Value Date Recorded Sex Assigned at Not on file Gender Identity Not on file Sexual Orientation Not on file documented as of this encounter Miscellaneous Notes * Telephone Encounter - Mela French, MS - 09/06/2018 1601 EST Jessica called back. She explained that she received a bill for $27.00-I said that was for the blood draw and another bill for about $125.00-I said that might be for genetic counseling. I explained that the genetic testing was free if done in 90 days. She did not expect any fee for testing and would like to discuss with Socorro Ruth upon her return from a meeting. Jessica said she was unaware ofthat there would be any charges. She does not feel that she should have to pay the bill since she was not told there would be any charges. I said I would inform Socorro Ruth of our conversation and ask her to call her back on Tuesday. Mela French MS documented in this encounter Plan of Treatment Not on file documented as of this encounter Visit Diagnoses Not on filedocumented in this encounter Care Teams Data Entry Technician Relationship Specialty Start Date End Date Blayne Song APRN [address] [place] [address] [address] [place] [address] PCP - General 02/21/14 documented as of this encounter
--- OUTSIDE RECORDS SUMMARY | 2024-05-07 02:40 | XMS_ITS | Encounter Summary ---
Author Organization [facility] Address [address] [place] [address] Care Team Providers Care Children'S Service Worker Name Role Phone Duncan Blayne Molina APRN Primary Care Provider [phone] Reason for Visit * Reason Onset Date Comments Billing Question 09/06/2018 Encounter Details Date Type Department Care Team (Late st Contact Info) Description 09/06/2018 Telephone [facility] Pediatric Genetics - [facility] [address] [place], [place] [address] Karina Ruth, [address] [place], [place] [address] Billing Question Social History Tobacco Use Types Packs/Day Years Used Date Smoking Tobacco: Never Alcohol Use Standard Drinks/Week Comments No 0 (1 standard drink = 0.6 oz pur e alcohol) Sex and Gender Information Value Date Recorded Sex Assigned at Not on file Gender Identity Not on file Sexual Orientation Not on file documented as of this encounter Miscellaneous Notes * Telephone Encounter - Mela FrenchMS - 09/06/2018 1550 EST I left a voice message for Jesisca on her phone. I explained that Ms. Ruth is out of town until Tuesday. I left my name, title and phone number for her to call me back directly. I explained that we received her message and she is correct there should be no charge for the genetic testing. There should be a charge for the genetic counseling visit and possibly for the blood draw. Mela French MS * Telephone Encounter - Marcus Hahn. - 09/06/2018 1351 EST Calling about the Genetic Testing that she thought was free if done with in the 90 day period. She wouldn't have had it done if she knew that she was going to be billed for it. She would like a call back to resolve this. I did have her talk to [facility] so that she could make them aware that there is a potential issue with this bill. Please give her a call. DB patient documented in this encounter Plan of Treatment Not on file documented as of this encounter Visit Diagnoses Not on filedocumented in this encounter Care Teams Children'S Service Worker Relationship Specialty Start Date End Date Blayne Song APRN [address] [place] [address] [address] [place] [address] PCP - General 02/21/14 documented as of this encounter
--- OUTSIDE RECORDS SUMMARY | 2024-05-07 02:40 | XMS_ITS | Encounter Summary ---
Author Organization [facility] Address [address] [place] [address] Care Team Providers Care Stator Plate Washer Name Role Phone DuncanBlayne Tracy WARD Primary Care Provider [phone] Encounter Details Date Type Department Care Team (Late st Contact Info) Description 06/13/2018 Results Only [facility] Clinical Genetics - [place] [address] [place], [place] [phone] Rere Pabon MD [address] [place] [address] Social History Tobacco Use Types Packs/Day Years [...] Procedure Name Priority Date/Time Associated Diagnosis Comments REFERRAL TEST 1 Routine 06/13/2018 16:19 EDT documented in this encounter Results * REFERRAL TEST 1 (06/13/2018 16:19 EDT) Test Name FAMILY VARIENT TESTING IN MPZ GENE 06/13/2018 16:34 EDT [facility] Result See Pathology Scanned Report in PRISM. 07/28/2018 8:20 EDT [facility] Comment:Assayed at [facility], [place], [place] Ref Lab [facility] 06/13/2018 16:34 EDT [facility] Date Sample Shipped 06/13/18 06/13/2018 16:34 EDT [facility] TOPOGRAPHY UNKNOWN / Unknown 06/13/2018 16:19 EDT 06/13/2018 16:30 EDT Rere Pabon MD LAB INFO SERVICE A ND SUPPORT & PHONE RESULT [facility] [address] [place] [address] documented in this encounter Visit Diagnoses Not on filedocumented in this encounter Care Teams Stator Plate Washer Relationship Specialty Start Date End Date Blayne Song APRN [address] [place] [address] [address] [place] [address] PCP - General 02/21/14 documented as of this encounter
--- OUTSIDE RECORDS SUMMARY | 2024-05-07 02:40 | XMS_ITS | Clinical Summary ---
Author Organization [facility] Address [address] [place] [address] Care Team Providers Care Closing Coordinator Name Role Phone Blayne Song APRN Primary Care Provider [phone] Allergies No known active allergies Medications No known medications Encounters Date Type Department Care Team Description 03/19/2024 Lab Requisition [facility] Pathology & Laboratory [facility] [address] [place] [address] Outr Resulting Lab, Provider 03/14/2024 Lab Requisition [facility] Pathology & Laboratory [facility] [address] [place] [address] Outr Resulting Lab, Provider from Last 3 Months Social History Tobacco Use Types Packs/Day Years [...] on file Sexual Orientation Not on file Obstetrics History Last Filed Vital Signs Vital Sign Reading [...] Body Mass Index 29.76 02/21/2014 1622 EDT Plan of Treatment Health Maintenance Due Date Last Done Comments Hepatitis B Vaccine (1 of 3 - 19+ 3-dose series) 01/20 COVID-19 Vaccine (2022-24 season) 2023 Hepatitis C Screen Completed 04/21/2022 Procedures Procedure Name Priority Date/Time Associated Diagnosis Comments PROGESTERONE Routine 03/19/2024 8:37 EDT PROGESTERONE Routine 03/14/2024 14:22 EDT HEPATITIS C AB W REFLEX TO HCV RNA BY PCR Routine 04/21/2022 15:00 EDT from Last 3 Months or Most Recently Relevant to Health Maintenance Results * PROGESTERONE (03/19/2024 8:37 EDT) Only the most recent of2 resultswithin the time period is included. Progesterone 17.3 See Table ng/mL 03/19/2024 22:43 EDT [facility] Comment: Female Reference Ranges: PHYSIOLOGICAL [...] Resulting Lab CHEMISTRY & BLOOD GAS ORDERABLES Performing Organization Address City/[facility] Co de Phone Number [facility] [address] [place] [address] * HEPATITIS C AB W REFLEX TO HCV RNA BY PCR (04/21/2022 15:00 EDT) Hep C Antibody Negative Negative 04/23/2022 9:35 EDT [facility] Blood VENOUS BLOOD / Unknown 04/21/2022 15:00 EDT 04/22/2022 17:37 EDT Provider Outr Resulting Lab CHEMISTRY & BLOOD GAS ORDERABLES Performing Organization Address City/[facility] Co de Phone Number [facility] [address] [place] [address] from Last 3 Months or Most Recently Relevant to Health Maintenance Care Teams Closing Coordinator Relationship Specialty Start Date End Date Blayne Song APRN [address] [place] [address] [address] [place] [address] PCP - General 02/21/14
--- OUTSIDE RECORDS SUMMARY | 2024-05-07 02:40 | XMS_ITS | Encounter Summary ---
Author Organization [facility] Address [address] [place] [address] Care Team Providers Care Strategy Intern Name Role Phone Blayne Song APRN Primary Care Provider [phone] Reason for Visit * Reason Onset Date Comments Results 06/27/2018 Encounter Details Date Type Department Care Team (Late st Contact Info) Description 06/27/2018 Telephone 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 We will contact neurology and see if they suggest a referral at this time and let Olya know. We also put a copy of the report in the mail to her. documented in this encounter Plan of Treatment Not on file documented as of this encounter Visit Diagnoses Not on filedocumented in this encounter Care Teams Strategy Intern Relationship Specialty Start Date End Date Blayne Song APRN [address] [place] [address] [address] [place] [address] PCP - General 02/21/14 documented as of this encounter
--- OUTSIDE RECORDS SUMMARY | 2024-05-07 02:40 | XMS_ITS | Encounter Summary ---
Author Organization [facility] Address [address] [place] [address] Care Team Providers Care Lens Blank Gauger Name Role Phone Duncan Blayne Molina APRN Primary Care Provider [phone] Encounter Details Date Type Department Care Team (Latest Contact Info) Description 01/05/2022 Lab Requisition [facility] Pathology & Laboratory Medicine - [facility] [address] [place] [address] Malcolm Spring, [facility] [address] [facility] [address]IM [address] [place] [address] Encounter for general adult medical examination without abnormal findings; Encounter for screening for malignant neoplasm of cervix; Encounter for screening for human papillomavirus (HPV) Social History Tobacco Use Types Packs/Day Years [...] Procedure Name Priority Date/Time Associated Diagnosis Comments PAP TEST Today 01/04/2022 14:58 EDT Encounter for general adult medical examination without abnormal findings Encounter for screening for malignant neoplasm of cervix Encounter for screening for human papillomavirus (HPV) CHLAMYDIA/N. GONORRHOEAE AMPLIFIED NUCLEIC ACID, THINPREP Today 01/04/2022 14:58 EDT documented in this encounter Results * PAP TEST (01/04/2022 14:58 EDT) Specimens A. Cervix and/or Endocervix , ThinPrep Imaging System with Manual Evaluation 01/11/2022 13:03 EDT [facility] Specimen Adequacy Satisfactory for Evaluation - transformation zone component present Scant squamous epithelial component 01/11/2022 13:03 EDT [facility] General Categorization Negative for intraepithelial lesion or malignancy 01/11/2022 13:03 EDT [facility] Attestation . 01/11/2022 13:03 EDT [facility] at 1303 Clinical History See below 01/12/20 13:03 EDT [facility] Performing Lab [facility] 01/11/2022 13:03 EDT [facility] Scanned Images 01/11/2022 13:03 EDT [facility] Papanicolaou smear specimen (specimen) CERVIX UTERI STRUCTURE / Unknown 01/04/2022 14:58 EDT 01/06/2022 12:04 EDT Malcolm Spring RPA PATHOLOGY ORDERAB LES Performing Organization Address City/[facility] Co de Phone Number [facility] [address] [place] [address] * CHLAMYDIA/N. GONORRHOEAE AMPLIFIED RNA, THINPREP (01/04/2022 14:58 EDT) Neisseria gonorrhoeae Result Negative Negative 01/06/2022 14:56 EDT [facility] Chlamydia trachomatis Result Negative Negative 01/06/2022 14:56 EDT [facility] Papanicolaou smear specimen (specimen) CERVIX UTERI STRUCTURE / Unknown 01/04/2022 14:58 EDT 01/06/2022 7:41 EDT Malcolm Spring RPA MICROBIOLOGY - GE NERAL ORDERABLES [facility] [address] [place] [address] documented in this encounter Visit Diagnoses Diagnosis Encounter for general adult medical examination without abnormal findings Unspecified general medical examination Encounter for screening for malignant neoplasm of cervix Screening for malignant neoplasm of the cervix Encounter for screening for human papillomavirus (HPV) Special screening examination for human papillomavirus (HPV) documented in this encounter Care Teams Lens Blank Gauger Relationship Specialty Start Date End Date Blayne Song APRN [address] [place] [address] [address] [place] [address] PCP - General 02/21/14 documented as of this encounter
--- OUTSIDE RECORDS SUMMARY | 2024-05-07 02:40 | XMS_ITS | Encounter Summary ---
Author Organization [facility] [place] [address] Care Team Providers Care Care Asst Name Role Phone Toño Owens MD, Mark Primary Care Provider [phone] Encounter Details Date Type Department Care Team (Late st Contact Info) Description 08/06/2021 Telephone [place] [phone] Bryanna Bush Social History Tobacco Use Types Packs/Day Years Used Date Smoking Tobacco: Never Assessed Sex and Gender Information Value Date Recorded Sex Assigned at Not on file Gender Identity Not on file Sexual Orientation Not on file documented as of this encounter Miscellaneous Notes * Telephone Encounter - Bryanna Bush - 08/06/2021 2:15 PM EDT Patient contacted GI to check the status of a referral sent from Malcolm Spring's office. The patient was informed that our office has not received the referral at this time. A call was placed to the Ds office and this process description writer was told the referral should be going to bariatric surgery. A detailed message was left for the patient to contact Gen Surg's department at [phone]. documented in this encounter Plan of Treatment Not on file documented as of this encounter Visit Diagnoses Not on filedocumented in this encounter Care Teams Care Asst Relationship Specialty Start Date End Date Kevin Lundberg [place] [address] [address] PCP - General 09/01/10 08/07/21 documented as of this encounter
--- OUTSIDE RECORDS SUMMARY | 2024-05-07 02:40 | XMS_ITS | Encounter Summary ---
Author Organization [facility] Address [address] [place] [address] Care Team Providers Care Sales Professional Bilingual Name Role Phone Blayne Song APRN Primary Care Provider [phone] Reason for Visit * Reason Onset Date Comments Billing Question 09/11/2018 Encounter Details Date Type Department Care Team (Late st Contact Info) Description 09/11/2018 Telephone [facility] Pediatric Pulmonary - [facility] [address] [place], [place] [address] FarazKarina, MS [address] [place], [place] [address] Billing Question Social History Tobacco Use Types [...] encounter Miscellaneous Notes * Telephone Encounter - Faraz Rodo Quintanilla, MS - 09/11/2018 0841 EST Left a message for Olya that the actual genetic testing at [facility] was free. The blood draw through [facility] was not included in that and she was charged $27. The other charge for approximately $125was probably for the genetic counseling visit which is usually covered under insurance. However, she may have not yet met her deductible and that is why she got the charge. I suggested she contact her insurance company to determine her deductible and also call patient financial services at [phone] and see if they could set up a payment plan. She called back and complained that she was never told to expect these charges and she was told everything was free. I again explained that the genetic testing through [facility] was free. However the blood draw and the counseling was not. She was very upset and said we should have told her there would be a charge and she would not have gone through with the testing. She was also upset that we bradshaw pposedly did not discuss insurance implications. I said we did discuss that and she had signed a consent form with information regarding that. I contacted Patient financial services and explained the situation. I also contacted patient advocacy and explained the situation there as well. documented in this encounter Plan of Treatment Not on file documented as of this encounter Visit Diagnoses Not on filedocumented in this encounter Care Teams Sales Professional Bilingual Relationship Specialty Start Date End Date Blayne Song APRN [address] [place] [address] [address] [place] [address] PCP - General 02/21/14 documented as of this encounter
--- OUTSIDE RECORDS SUMMARY | 2024-05-07 02:40 | XMS_ITS | Encounter Summary ---
Author Organization [facility] Address [address] [place] [address] Care Team Providers Care Hook Loader Name Role Phone Duncan Blaynesheba Molina APRN Primary Care Provider [phone] Encounter Details Date Type Department Care Team (Late st Contact Info) Description 04/22/2022 Lab Requisition [facility] Pathology & Laboratory Medicine - [facility] [address] [place] [address] Outr Resulting Lab, Provider Social History Tobacco [...] Procedure Name Priority Date/Time Associated Diagnosis Comments HEPATITIS C AB W REFLEX TO HCV RNA BY PCR Routine 04/21/2022 15:00 EDT HERPES SIMPLEX VIRUS (HSV) TYPE 1 & 2 AB, IGG Routine 04/21/2022 15:00 EDT HEPATITIS B SURFACE ANTIBODY Routine 04/21/2022 15:00 EDT documented in this encounter Results * HEPATITIS B SURFACE ANTIBODY (04/21/2022 15:00 EDT) Hep B Surface Ab, Quantitative <3.1 See Note mIU/mL 04/23/2022 8:50 EDT [facility] Comment: Reference Range for Hep B Surface Ab, Quant: Positive: >= 10.0 mIU/mL Negative: ??< 10.0 mIU/mL Patient is presumed to not be immune to infection with Hepatitis B Virus. Hep B Surface Ab, Qualitative Negative See Note 04/23/2022 8:50 EDT [facility] Comment: Reference Range for Hep B Surface Ab, Qual: Unvaccinated: ??Negative Vaccinated: ??Positive Blood VENOUS BLOOD / Unknown 04/21/2022 15:00 EDT 04/22/2022 17:37 EDT Provider Outr Resulting Lab CHEMISTRY & BLOOD GAS ORDERABLES Performing Organization Address [facility] Co de Phone Number [facility] [address] [place] [address] * HEPATITIS C AB W REFLEX TO HCV RNA BY PCR (04/21/2022 15:00 EDT) Pathologist [facility] Hep C Antibody Negative Negative 04/23/2022 9:35 EDT [facility] Blood VENOUS BLOOD / Unknown 04/21/2022 15:00 EDT 04/22/2022 17:37 EDT Provider Outr Resulting Lab CHEMISTRY & BLOOD GAS ORDERABLES Performing Organization Address City/[facility]/ZIP Co de Phone Number [facility] [address] [place] [address] * (ABNORMAL) HERPES SIMPLEX VIRUS (HSV) TYPE 1 & 2 AB, IGG (04/21/2022 15:00 EDT) Pathologist [facility] HSV Type 1 Ab, IgG Negative Negative 04/28/2022 12:07 EDT [facility] Comment: No detectable antibodies to HSV 1 were found. A negative result generally indicates that the patient has not been infected, but does not always rule out acute HSV infection. If clinical exposure to HSV is suspected despite a negative finding a second sample should be collected and tested no less than 4-6 weeks later. HSV Type 2 Ab, IgG Positive(A) Negative 04/28/2022 12:07 EDT [facility] Comment:Indicates the presen ce of detectable IGG antibody to HSV 2 Blood VENOUS BLOOD / Unknown 04/21/2022 15:00 EDT 04/22/2022 17:22 EDT Provider Outr Resulting Lab IMMUNOLOGY A ND SEROLOGY ORDERABLES Performing Organization Address City/State/[facility] Co de Phone Number [facility] [address] [place] [address] documented in this encounter Visit Diagnoses Not on filedocumented in this encounter Care Teams Hook Loader Relationship Specialty Start Date End Date Blayne Song APRN [address] [place] [address] [address] [place] [address] PCP - General 02/21/14 documented as of this encounter
--- OUTSIDE RECORDS SUMMARY | 2024-05-07 02:40 | XMS_ITS | Encounter Summary ---
Author Organization [facility] Address [address] [place] [address] Care Team Providers Care Engine Maintenance Mechanic Name Role Phone Blayne Song APRN Primary Care Provider [phone] Reason for Visit * Reason Comments Family History Of Genetic Disease Alpine t Bella Tooth Disease Encounter Details Date Type Department Care Team (Late st Contact Info) Description 06/13/2018 15:00 EDT Office Visit [facility] Clinical Genetics [facility] [address] [place] [address] Karina Ruth, MS [address] [facility] [place] [address] Family history of genetic disease (Primary Dx); History of genetic counseling; Genetic testing Social History Tobacco Use Types Packs/Day Years Used Date Smoking Tobacco: Never Alcohol Use Standard Drinks/Week Comments No 0 (1 standard drink = 0.6 oz pur e alcohol) Sex and Gender Information Value Date Recorded Sex Assigned at Not on file Gender Identity Not on file Sexual Orientation Not on file documented as of this encounter Progress Notes * Rodo Ruth, MS - 06/13/2018 1500 EDT [facility] GENETICS CONSULTATION Encounter Date: 06/13/2018 Olya Trujillo 1990 [id number] Blayne Song Olya Trujillo is a 28 y.o. 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 She is interested in genetic testing for that known familial mutation. She is accompanied to the clinic visit by her sister, Iona. FAMILY HISTORY: A detailed three-generation pedigree was obtained. Jessica has a 29-year-old sister who has the known familial mutation for CMT. Jessica's mother, maternal uncle, four maternal great aunt/uncles, andmaternal maternal great grandmother all have CMT. Jessica has another maternal uncle with cerebral palsy and learning disabilities. eJssica has a maternal aunt who reportedly had genetic testing for that known familial mutation for CMT and was reportedly negative. Jessica's maternal grandfather hadCOPD, stents, and multiple knee replacements. Jessica's paternal grandmother has ulcerative colitis. Jessica's paternal grandfather has COPD. Jessica is of [place] and Mixed ancestry . There is no known consanguinity. PAST MEDICAL HISTORY: Olya has generally been in good health. She has a history of frequent urinary tract infections.She does not think she has any symptoms of CMT however, she feels like she has less balance than before. 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 The surgical history is No past surgical history on file. SUMMARY OF DISCUSSION: Olya Trujillo is a 28 y.o. 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 She is interested in genetic testing for this mutation. We discussed that individuals with this mutation have symmetric distal weakness, symmetric distal sensory loss and diminished deep tendon reflexes. Hearing loss has also been reported. This mutation is inherited in an autosomal dominant pattern. Each child of an individual with this mutation has a 50% chance of having the mutation as well. Genetic testing is available for free for this known familial mutation through [facility]. We discussed the pros and cons of genetic testing. Olya was interested in that testing. We filled out the appropriate forms and her blood was drawn after this appointment. We will contact her as soon as those results are available. I spent a total of 30 minutes in face to face time with this patient and 30 minutes of that time was spent in counseling and coordination of care as described in the progress note. This patient was seen under the supervision of Dr. Rere Pabon, who reviewed the case and was available for questions during the time of the visit. Socorro Ruth, MS Genetic Counselor Rere Pabon MD Clinical Croze Cutter Helper documented in this encounter Plan of Treatment Not on file documented as of this encounter Visit Diagnoses Diagnosis Family history of genetic disease- Primary Family history of other condition History of genetic counseling Genetic testing Other investigation and testing for procreative management documented in this encounter Care Teams Engine Maintenance Mechanic Relationship Specialty Start Date End Date Blayne Song APRN [address] [place] [address] [facility] [address] [place] [address] PCP - General 02/21/14 documented as of this encounter
--- OUTSIDE RECORDS SUMMARY | 2024-05-07 02:40 | XMS_ITS | Referral Summary ---
Author Organization [facility] Address [address] [place] [address] Care Team Providers Care Military Administrative Technician Name Role Phone Blayne Song APRN Primary Care Provider [phone] Encounters Date Type Department Care Team Description 03/19/2024 Lab Requisition [facility] Pathology & Laboratory [address] [address] Outr Resulting Lab, Provider 03/14/2024 Lab Requisition [facility] Pathology & Laboratory [facility] [address] [place] [address] Outr Resulting Lab, Provider from Last 3 Months Allergies No known active allergies Medications No known medications Social History Tobacco Use Types Packs/Day Years [...] on file Sexual Orientation Not on file Last Filed Vital Signs Vital Sign Reading [...] 29.76 02/21/2014 1622 EDT Plan of Treatment Not on file Procedures Procedure Name Priority Date/Time Associated Diagnosis [...] 17.3 See Table ng/mL 03/19/2024 22:43 EDT [facility] Comment: Female Reference Ranges: PHYSIOLOGICAL [...] & BLOOD GAS ORDERABLES Performing Organization Address [facility] Co de Phone Number [facility] [address] [place], [place] [address] * HEPATITIS C AB W REFLEX TO HCV RNA BY PCR (04/21/2022 15:00 EDT) Hep C Antibody Negative Negative 04/23/2022 9:35 EDT [facility] Blood VENOUS BLOOD / Unknown 04/21/2022 15:00 EDT 04/22/2022 17:37 EDT Provider Outr Resulting Lab CHEMISTRY & BLOOD GAS ORDERABLES Performing Organization Address City/[facility] de Phone Number [facility] [address] [place] [address] from Last 3 Months or Most Recently Relevant to Health Maintenance Care Teams Military Administrative Technician Relationship Specialty Start Date End Date Blayne Song APRN [address] [place] [address] [address] [place] [address] PCP - General 02/21/14
--- OUTSIDE RECORDS SUMMARY | 2024-05-07 02:40 | XMS_ITS | Encounter Summary ---
Author Organization [facility] Address [address] [place] [address] Care Team Providers Care Academic Support Center Director Name Role Phone Blayne Song APRN Primary Care Provider [phone] Encounter Details Date Type Department Care Team (Late st Contact Info) Description 01/13/2024 Lab Requisition [facility] Pathology & Laboratory Medicine - [facility] [address] [place] [address] Outr Resulting Lab, Provider Social History Tobacco Use Types Packs/Day Years Used Date Smoking Tobacco: Never Assessed Interpersonal Safety Answer Date Record ed Physically [...] Priority Date/Time Associated Diagnosis Comments PROGESTERONE Routine 01/13/2024 9:23 EDT documented in this encounter Results * PROGESTERONE (01/13/2024 9:23 EDT) Progesterone 12.5 See Table ng/mL 01/13/2024 22:02 EDT [facility] Comment: Female Reference Ranges: [...] a pathologist. Blood VENOUS BLOOD / Unknown 01/13/2024 9:23 EDT 01/13/2024 21:27 EDT Provider Outr Resulting Lab CHEMISTRY & BLOOD GAS ORDERABLES [facility] [address] [place] [address] documented in this encounter Visit Diagnoses Not on filedocumented in this encounter Care Teams Academic Support Center Director Relationship Specialty Start Date End Date Blayne Song APRN [address] [place] [address] [address] [place], [place] [address] PCP - General 02/21/14 documented as of this encounter
[2024-05-07 16:12] LABS: Abs Immature Grans 0.02 10^3/uL (0.0-0.06); Absolute Basophil Count 0.02 10^3/uL (0.0-0.2); Absolute Eosinophil Count 0.08 10^3/uL (0.0-0.7); Absolute Lymphocyte Count 1.81 10^3/uL (1.2-3.4); Absolute Monocyte Count 0.48 10^3/uL (0.1-0.8); Absolute Neutrophil Count 5.47 10^3/uL (1.2-6.7); Basophils % 0.3 %; HCT 35.5 % (36.0-46.0); HGB 12.4 g/dL (11.2-15.7); Immature Grans % 0.3 %; MCH 31.2 pg (27.0-33.0); MCHC 34.9 % (32.0-36.0); MCV 89 fL (80-95); MPV 10.4 fL (8.0-11.0); Monocytes % 6.1 %; Neutrophils % 69.3 %; Platelet Count 241 10^3/uL (130-400); RBC 3.98 10^6/uL (3.93-5.22); RDW 11.7 % (11.7-14.6); RDW-SD 37.6 fL; WBC 7.88 10^3/uL (4.4-10.8)
[2024-05-07 16:28] LABS: Glucose,1 Hr (Glucola) 111 mg/dL (80-140)
[2024-05-07 16:40] LABS: Panorama Kit Sent via Fed Ex
[2024-05-08 18:39] LABS: Hepatitis B Surface Ag Negative (Negative)
[2024-05-08 19:09] LABS: Hepatitis C Ab w Rflx HCV PCR Negative (Negative)
[2024-05-08 19:12] LABS: HIV-1/2 Ag & Ab Screen Negative (Negative)
[2024-05-09 12:42] LABS: Varicella IgG Antibody Negative (See Note)
[2024-05-09 12:57] LABS: Rubella IgG Ab (UVM) Positive (See Note)
[2024-05-10 16:06] LABS: Syphilis IgG w/Reflex Nonreactive (Nonreactive)
== END 2024-05-07 02:39 | disposition home or self-care (01) ==
LOC: LBO 02:39
PROVIDERS: Advanced Practice Midwife; Obstetrics & Gynecology; PCP Physician Assistant; Visit Provider Advanced Practice Midwife
DX: Z34.91 Encounter for supervision of normal pregnancy, unspecified, first trimester
CPT/HCPCS: 36415; 82950; 86787; 86803; 86850; 86900; 86901; 87340; 87389; 84702; 85025; 86762; 86780

== ENCOUNTER 2024-05-07 15:44 | Outpatient (REF) | payer MEDICAID, SELFPAY | END 2024-05-07 15:45 | disposition home or self-care (01) | LOC: LBN 15:44 | PROVIDERS: PCP Physician Assistant; Visit Provider Advanced Practice Midwife | DX: Z34.91 Encounter for supervision of normal pregnancy, unspecified, first trimester (principal); Z3A.11 11 weeks gestation of pregnancy | CPT/HCPCS: 87077; 87086; 87186 ==

== ENCOUNTER 2024-06-05 18:27 | Outpatient (REF) | payer MEDICAID, SELFPAY ==
--- OUTSIDE RECORDS SUMMARY | 2024-06-05 18:29 | XMS_ITS | Encounter Summary ---
Author Organization [facility] Address [address] [place] [address] Care Team Providers Care Rib Chopper Name Role Phone Blayne Song APRN Primary Care Provider [phone] Encounter Details Date Type Department Care Team (Late st Contact Info) Description 05/08/2024 Lab Requisition [facility] Pathology & Laboratory Medicine - [facility] [address] [place] [address] Outr Resulting Lab, Provider Social History Tobacco [...] Date/Time Associated Diagnosis Comments HOLD SST Today 05/07/2024 15:50 EDT HEPATITIS C AB W REFLEX TO HCV RNA BY PCR Today 05/07/2024 15:50 EDT HEPATITIS B SURFACE ANTIGEN Today 05/07/2024 15:50 EDT documented in this encounter Results * HOLD SST (05/07/2024 15:50 EDT) Hold Hold 05/08/2024 18:15 EDT [facility] Blood VENOUS BLOOD / Unknown 05/07/2024 15:50 EDT 05/08/2024 17:12 EDT Provider Outr Resulting Lab LAB INFO SER VICE AND SUPPORT & PHONE RESULT Performing Organization Address [facility] Co de Phone Number [facility] [address] [place], [place] [address] * HEPATITIS B SURFACE ANTIGEN (05/07/2024 15:50 EDT) Hep B Surface Ag Negative Negative 05/08/2024 18:34 EDT [facility] Blood VENOUS BLOOD / Unknown 05/07/2024 15:50 EDT 05/08/2024 17:11 EDT Provider Outr Resulting Lab CHEMISTRY & BLOOD GAS ORDERABLES Performing Organization Address [facility] Co de Phone Number [facility] [address] [place] [address] * HEPATITIS C AB W REFLEX TO HCV RNA BY PCR (05/07/2024 15:50 EDT) Hep C Antibody Negative Negative 05/08/2024 19:05 EDT [facility] Blood VENOUS BLOOD / Unknown 05/07/2024 15:50 EDT 05/08/2024 17:11 EDT Provider Outr Resulting Lab CHEMISTRY & BLOOD GAS ORDERABLES Performing Organization Address [facility]/ZIP Co de Phone Number [facility] [address] [place] [phone] documented in this encounter Visit Diagnoses Not on filedocumented in this encounter Care Teams Rib Chopper Relationship Specialty Start Date End Date Blayne Song APRN [address] [place] [address] [address] [place] [address] PCP - General 02/21/14 documented as of this encounter
--- OUTSIDE RECORDS SUMMARY | 2024-06-05 18:29 | XMS_ITS | Encounter Summary ---
Author Organization [facility] Address [address] [place] [address] Care Team Providers Care Appointment Manager Name Role Phone DuncanBlayne Tracy WARD Primary Care Provider [phone] Encounter Details Date Type Department Care Team (Late st Contact Info) Description 06/13/2018 Results Only [facility] Clinical Genetics - [place] [address] [place], [place] [id number] Rere Pabon MD [address] [place] [address] Social History Tobacco Use Types [...] TESTING IN MPZ GENE 06/13/2018 16:34 EDT [facility] Result See Pathology Scanned Report in PRISM. 07/28/2018 8:20 EDT [facility] Comment:Assayed at [facility], [place], [place] Ref Lab [facility] 06/13/2018 16:34 EDT [facility] Date Sample Shipped 06/13/18 06/13/2018 16:34 EDT [facility] TOPOGRAPHY UNKNOWN / Unknown 06/13/2018 16:19 EDT 06/13/2018 16:30 EDT Rere Pabon MD LAB INFO SERVICE A ND SUPPORT & PHONE RESULT [facility] [address] [place] [address] documented in this encounter Visit Diagnoses Not on filedocumented in this encounter Care Teams Appointment Manager Relationship Specialty Start Date End Date Blayne Song APRN [address] [place] [address] [address] [place] [address] PCP - General 02/21/14 documented as of this encounter
--- OUTSIDE RECORDS SUMMARY | 2024-06-05 18:29 | XMS_ITS | Encounter Summary ---
Author Organization [facility] Address [address] [place] [address] Care Team Providers Care Planning Coordinator Name Role Phone Blayne Song APRN Primary Care Provider [phone] Reason for Visit * Reason Onset Date Comments Results 06/27/2018 Encounter Details Date Type Department Care Team (Late st Contact Info) Description 06/27/2018 Telephone [facility] Pediatric Genetics - [facility] [address] [place], [place] [address] Karina Ruth MS [address] [place], [place] [id number] Results Social History Tobacco Use Types Packs/Day [...] on filedocumented in this encounter Care Teams Planning Coordinator Relationship Specialty Start Date End Date Blayne Song APRN [address] [place] [address] [address] [place] [address] PCP - General 02/21/14 documented as of this encounter
--- OUTSIDE RECORDS SUMMARY | 2024-06-05 18:29 | XMS_ITS | Encounter Summary ---
Author Organization [facility] Address [address] [place] [address] Care Team Providers Care Lard Bleacher Name Role Phone DuncanGeorgesheba Molina APRN Primary Care Provider [phone] Reason for Visit * Reason Onset Date Comments Billing Question 09/06/2018 Encounter Details Date Type Department Care Team (Late st Contact Info) Description 09/06/2018 Telephone [facility] Pediatric Genetics - [facility] [address] [place], [place] [address] Karina Ruth, [address] [place], [place] [address] Billing Question Social History Tobacco Use Types [...] EST I left a voice message for Jessica on her phone. I explained that Ms. [...] on filedocumented in this encounter Care Teams Lard Bleacher Relationship Specialty Start Date End Date Blayne Song APRN [address] [place] [address] [address] [place] [address] PCP - General 02/21/14 documented as of this encounter
--- OUTSIDE RECORDS SUMMARY | 2024-06-05 18:29 | XMS_ITS | Encounter Summary ---
Author Organization [facility] Address [address] [place] [address] Care Team Providers Care Quality Control Assistant Name Role Phone DuncanGeorgesheba Molina APRN Primary Care Provider [phone] Encounter Details Date Type Department Care Team (Late st Contact Info) Description 04/22/2022 Lab Requisition [facility] Pathology & Laboratory Medicine - [facility] [address] [place] [address] Outr Resulting Lab, Provider Social History Tobacco [...] <3.1 See Note mIU/mL 04/23/2022 8:[address] [facility] Comment: Reference Range for Hep B Surface Ab, Quant: Positive: >= 10.0 mIU/mL Negative: ??< 10.0 mIU/mL Patient is presumed to not be immune to infection with Hepatitis B Virus. Hep B Surface Ab, Qualitative Negative See Note 04/23/2022 8:[address] [facility] Comment: Reference Range for Hep B Surface Ab, Qual: Unvaccinated: ??Negative Vaccinated: ??Positive Blood VENOUS BLOOD / Unknown 04/21/2022 15:00 EDT 04/22/2022 17:37 EDT Provider Outr Resulting Lab CHEMISTRY & BLOOD GAS ORDERABLES Performing Organization Address [facility] Co de Phone Number [facility] [address] [place] [address] * HEPATITIS C AB W REFLEX TO HCV RNA BY PCR (04/21/2022 15:00 EDT) Pathologist [facility] Hep C Antibody Negative Negative 04/23/2022 9:[address] [facility] Blood VENOUS BLOOD / Unknown 04/21/2022 15:00 EDT 04/22/2022 17:37 EDT Provider Outr Resulting Lab CHEMISTRY & BLOOD GAS ORDERABLES Performing Organization Address City/[facility]/ZIP Co de Phone Number [facility] [address] [place] [address] * (ABNORMAL) HERPES SIMPLEX VIRUS (HSV) TYPE 1 & 2 AB, IGG (04/21/2022 15:00 EDT) Pathologist [facility] HSV Type 1 Ab, IgG Negative Negative 04/28/2022 12:[address] [facility] Comment: No detectable antibodies to [...] Ab, IgG Positive(A) Negative 04/28/2022 12:[address] [facility] Comment:Indicates the presen ce of detectable IGG antibody to HSV 2 Blood VENOUS BLOOD / Unknown 04/21/2022 15:00 EDT 04/22/2022 17:22 EDT Provider Outr Resulting Lab IMMUNOLOGY A ND SEROLOGY ORDERABLES Performing Organization Address City/State/[facility] Co de Phone Number [facility] [address] [place] [address] documented in this encounter Visit Diagnoses Not on filedocumented in this encounter Care Teams Quality Control Assistant Relationship Specialty Start Date End Date Blayne Song APRN [address] [place] [address] [address] [place] [address] PCP - General 02/21/14 documented as of this encounter
--- OUTSIDE RECORDS SUMMARY | 2024-06-05 18:29 | XMS_ITS | Encounter Summary ---
Author Organization [facility] Address [address] [place] [address] Care Team Providers Care Riverine Assault Craft Crewman Name Role Phone Blayne Song APRN Primary Care Provider Encounter Details Date Type Department Care Team (Late st Contact Info) Description 03/14/2024 Lab Requisition [facility] Pathology & Laboratory Medicine - [facility] [address] [place] [address] Outr Resulting Lab, Provider Social History Tobacco [...] 13.9 See Table ng/mL 03/14/2024 22:40 EDT [facility] Comment: Female Reference Ranges: PHYSIOLOGICAL [...] Resulting Lab CHEMISTRY & BLOOD GAS ORDERABLES [facility] [address] [place] [address] documented in this encounter Visit Diagnoses Not on filedocumented in this encounter Care Teams Riverine Assault Craft Crewman Relationship Specialty Start Date End Date Blayne Song APRN [address] [place] [address] [address] [place] [address] PCP - General 02/21/14 documented as of this encounter
--- OUTSIDE RECORDS SUMMARY | 2024-06-05 18:29 | XMS_ITS | Encounter Summary ---
Author Organization [facility] Address [address] [place] [address] Care Team Providers Care Professor Of Chemistry Name Role Phone Blayne Song APRN Primary Care Provider [phone] Encounter Details Date Type Department Care Team (Late st Contact Info) Description 03/19/2024 Lab Requisition [facility] Pathology & Laboratory Medicine - [facility] [address] [place] [address] Outr Resulting Lab, Provider Social History Tobacco [...] 17.3 See Table ng/mL 03/19/2024 22:43 EDT [facility] Comment: Female Reference Ranges: [...] Resulting Lab CHEMISTRY & BLOOD GAS ORDERABLES [facility] [address] [place] [address] documented in this encounter Visit Diagnoses Not on filedocumented in this encounter Care Teams Professor Of Chemistry Relationship Specialty Start Date End Date Blayne Song APRN [address] [place] [address] [address] [place] [address] PCP - General 02/21/14 documented as of this encounter
--- OUTSIDE RECORDS SUMMARY | 2024-06-05 18:29 | XMS_ITS | Encounter Summary ---
Author Organization [facility] Address [address] [place] [address] Care Team Providers Care Cash Posting Specialist Name Role Phone Duncan Blayne Molina APRN Primary Care Provider [phone] Reason for Referral * Consult (Routine) - Closed Specialty Diagnoses / Procedures Referred By Huang salazar Referred To Contact Neurology Diagnoses Family history of genetic disease Genetic carrier Rere Pabon MD [address] [place] [address] Alexis Arcos MD [address] [place] [address] Referral ID Status Reason Start Date Expiration Date V isits Requested Visits Authorized [id number] Closed Specialty Services Required 06/28/2018 1 1 Question Answer Reason for Request: 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 Wants to discuss care. Encounter Details Date Type Department Care Team (Late st Contact Info) Description 06/28/2018 Orders Only [facility] [place] [address] [place], [place] [address] Karina Ruth, MS [address] [employer], [place] [address] Family history of genetic disease (Primary Dx); [...] status documented in this encounter Care Teams Cash Posting Specialist Relationship Specialty Start Date End Date Blayne Song APRN [address] [place] [address] [address] [place] [address] PCP - General 02/21/14 documented as of this encounter
--- OUTSIDE RECORDS SUMMARY | 2024-06-05 18:29 | XMS_ITS | Encounter Summary ---
Author Organization [facility] [place] [address] Care Team Providers Care Supervisor Grower Name Role Phone Malcolm Spring Primary Care Provider [phone] Reason for Referral * Consultation (Routine) - Authorized Specialty Diagnoses / Procedures Referred By Huang salazar Referred To Contact Obstetrics and Gynecology Diagnoses Encounter for supervision of normal , antepartum, unspecified Supervision of resulting from assisted reproductive technology in second trimester Family history of Xzhgnwz-Gbiad-Nqhms disease Detail Morph (06/29-07/13) and GC 21-HYDROXYLASE DEFICIENCY CARRIER Ptera Meza CNM [address] [place] [address] [address] [place] [address] [facility] Att[facility] [address] [address] Referral ID Status Reason Start Date Expiration Date Visits Requested Visits Authorized [id number] Authorized Consult, Test & Treat PCP Updated and/or Approved 05/08/2024 05/08/2025 12 12 Encounter Details Date Type Department Care Team (Late st Contact Info) Description 05/08/2024 Transcribe Orders eDH Incoming Referrals [phone] Petra Meza CNM [address] [place] [address] [address] [place], [place] [id number] Encounter for supervision of normal , antepartum, unspecified ; Supervision of resulting from assisted reproductive technology in second trimester Social History Tobacco Use Types Packs/Day Years Used Date Smoking Tobacco: Never Assessed Sex and Gender Information Value Date Recorded Sex Assigned at Not on file Gender Identity Not on file Sexual Orientation Not on file documented as of this encounter Plan of Treatment Upcoming Encounters Date Type Department Care Team (Late st Contact Info) Description 06/29/2024 10:00 AM EDT Office Visit Obstetrics [place] [address] Pollo Wilson, [facility] DR OBSTETRICS & [place] [address] 06/29/2024 11:00 AM EDT [place] [phone] [place], [place] [address] 06/29/2024 12:00 PM EDT Office Visit Obstetrics [place] [address] Vivek Lala MD [facility] DR OBSTETRICS [place] [address] Scheduled Referrals Name Type Priority Associated Diagnoses Orde r Schedule Referral to Maternal Medicine Outpatient Referral Routine Encounter for supervision of normal , antepartum, unspecified Supervision of resulting from assisted reproductive technology in second trimester Ordered: 05/08/2024 documented as of this encounter Visit Diagnoses Diagnosis Encounter for supervision of normal , antepartum, unspecified Supervision of resulting from assisted reproductive technology in second trimester resulting from assisted reproductive technology documented in this encounter Care Teams Supervisor Grower Relationship Specialty Start Date End Date Malcolm Spring PA Christin [address] [place] [address] PCP - General Internal Medicine 08/08/21 documented as of this encounter
--- OUTSIDE RECORDS SUMMARY | 2024-06-05 18:29 | XMS_ITS | Encounter Summary ---
Author Organization [facility] Address [address] [place] [address] Care Team Providers Care It Service Manager Name Role Phone DuncanGeorgesheba Molina APRN Primary Care Provider [phone] Encounter Details Date Type Department Care Team (Late st Contact Info) Description 05/08/[address] [facility] Pathology & Laboratory Medicine - [facility] [address] [place] [address] Outr Resulting Lab, Provider Social History Tobacco [...] Comments HOLD SST Today 05/07/2024 15:50 EDT RUBELLA IGG ANTIBODY Today 05/07/2024 15:50 EDT VARICELLA IGG ANTIBODY Today 05/07/2024 15:50 EDT documented in this encounter Results * HOLD SST (05/07/2024 15:50 EDT) Hold Hold 05/08/2024 18:15 EDT [facility] Blood VENOUS BLOOD / Unknown 05/07/2024 15:50 EDT 05/08/2024 17:12 EDT Provider Outr Resulting Lab LAB INFO SER VICE AND SUPPORT & PHONE RESULT Performing Organization Address [facility] Co de Phone Number [facility] [address] [place] [address] * VARICELLA IGG ANTIBODY (05/07/2024 15:50 EDT) Varicella IgG Ab Negative See Note 05/09/2024 12:37 EDT [facility] Comment:Absence of detectabl e Varicella Zoster virus IgG antibodies. A negative result generally indicates no detectable antibody, but does not rule out acute infection. If VZV exposure is suspected, a second sample should be collected and tested no less than one or two weeks later. Blood VENOUS BLOOD / Unknown 05/07/2024 15:50 EDT 05/08/2024 17:12 EDT Provider Outr Resulting Lab IMMUNOLOGY A ND SEROLOGY ORDERABLES Performing Organization Address [facility] Co de Phone Number [facility] [address] [place] [id number] * RUBELLA IGG ANTIBODY (05/07/2024 15:50 EDT) Rubella IgG Ab Positive See Note 05/09/2024 12:52 EDT [facility] Comment:Positive for IgG ant ibodies to Rubella virus. Blood VENOUS BLOOD / Unknown 05/07/2024 15:50 EDT 05/08/2024 17:12 EDT Provider Outr Resulting Lab CHEMISTRY & BLOOD GAS ORDERABLES Performing Organization Address [facility] Co de Phone Number [facility] [address] [place] [address] documented in this encounter Visit Diagnoses Not on filedocumented in this encounter Care Teams It Service Manager Relationship Specialty Start Date End Date Blayne Song APRN [address] [place] [address] [address] [place] [address] PCP - General 02/21/14 documented as of this encounter
--- OUTSIDE RECORDS SUMMARY | 2024-06-05 18:29 | XMS_ITS | Encounter Summary ---
Author Organization [facility] Address [address] [place] [address] Care Team Providers Care Deicer Element Winder Machine Name Role Phone DuncanGeorgesheba Molina APRN Primary Care Provider [phone] Encounter Details Date Type Department Care Team (Late st Contact Info) Description 05/08/2024 Lab Requisition [facility] Pathology & Laboratory Medicine - [facility] [address] [place] [address] Outr Resulting Lab, Provider Social History Tobacco [...] Procedure Name Priority Date/Time Associated Diagnosis Comments HIV 1/2 ANTIGEN AND ANTIBODY, 4TH GENERATION Routine 05/07/2024 15:50 EDT documented in this encounter Results * HIV 1/2 ANTIGEN AND ANTIBODY, 4TH GENERATION (05/07/2024 15:50 EDT) HIV 1 and 2 Antibody/p24 Antigen, 4th Generation Negative Negative 05/08/2024 19:07 EDT [facility] Comment:If acute HIV-1 infec tion is suspected in a high risk patient, submit plasma specimen for HIV-1 RNA quantitation test. Blood VENOUS BLOOD / Unknown 05/07/2024 15:50 EDT 05/08/2024 17:18 EDT Narrative [facility] - 05/08/2024 19:07 EDT Fourth Generation assay performed on the Siem[employer] Eggaur XPT. Provider Outr Resulting Lab IMMUNOLOGY A ND SEROLOGY ORDERABLES [facility] [address] [place] [address] documented in this encounter Visit Diagnoses Not on filedocumented in this encounter Care Teams Deicer Element Winder Machine Relationship Specialty Start Date End Date Blayne Song APRN [address] [place] [address] [address] [place] [address] PCP - General 02/21/14 documented as of this encounter
--- OUTSIDE RECORDS SUMMARY | 2024-06-05 18:29 | XMS_ITS | Encounter Summary ---
Author Organization [facility] Address [address] [place] [address] Care Team Providers Care Cnc Milling Machinist Name Role Phone DuncanBlayne Tracy WARD Primary Care Provider [phone] Encounter Details Date Type Department Care Team (Late st Contact Info) Description 06/13/2018 12:28 EDT - 06/13/2018 23:59 EDT Hospital Encounter [facility] - [address] [address] Rere Pabon MD [address] [place] [id number] Discharge Disposition: Home or Self Care Social [...] EDT) 07/27/2018 15:2 9 EDT Scan 2 [employer] LAB INFO SERVICE AN D SUPPORT & PHONE RESULT documented in this encounter Visit Diagnoses Not on filedocumented in this encounter Care Teams Cnc Milling Machinist Relationship Specialty Start Date End Date Blayne Song APRN [address] [place] [address] [address] [place] [address] PCP - General 02/21/14 documented as of this encounter
--- OUTSIDE RECORDS SUMMARY | 2024-06-05 18:29 | XMS_ITS | Encounter Summary ---
Author Organization [facility] Address [address] [place] [address] Care Team Providers Care Print Manager Name Role Phone Blayne Song APRN Primary Care Provider [phone] Reason for Visit * Reason Comments Family History Of Genetic Disease Le Grand t Bella Tooth Disease Encounter Details Date Type Department Care Team (Late st Contact Info) Description 06/13/2018 15:00 EDT Office Visit [facility] Clinical Genetics [facility] [address] [place] [address] Karina Ruth, MS [address] [facility], [place] [address] Family history of genetic disease (Primary Dx); [...] Ruth, MS - 06/13/2018 1500 EDT [facility]ICS [facility] Encounter Date: 06/13/2018 Olya Trujillo 1990 [id number] Blayne Song Olya Trujillo is a 28 [...] uncle with cerebral palsy and learning disabilities. Jessica has a maternal aunt who reportedly had genetic testing for that known familial mutation for CMT and was reportedly negative. Jessica's maternal grandfather hadCOPD, stents, and multiple knee replacements. Jessica's paternal grandmother has ulcerative colitis. Jessica's paternal grandfather has COPD. Jessica is of Citizen Of [place] and Mixed ancestry . There is no known consanguinity. PAST MEDICAL HISTORY: Olya has generally been in good health. She has a history of frequent urinary tract infections.She does not think she has any symptoms of CMT however, she feels like she has less balance than before. 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 The surgical history is No past surgical [...] free for this known familial mutation through [employer]. We discussed the pros and cons of [...] MS Genetic Counselor Rere Pabon MD Clinical Greenhouse Manager documented in this encounter Plan of Treatment Not on file documented as of this encounter Visit Diagnoses Diagnosis Family history of genetic disease- Primary Family history of other condition History of genetic counseling Genetic testing Other investigation and testing for procreative management documented in this encounter Care Teams Print Manager Relationship Specialty Start Date End Date Blayne Song APRN [address] [place] [address] [facility] [address] [place] [address] PCP - General 02/21/14 documented as of this encounter
--- OUTSIDE RECORDS SUMMARY | 2024-06-05 18:29 | XMS_ITS | Referral Summary ---
Author Organization [facility] Address [address] [place] [address] Care Team Providers Care Coal Grader Name Role Phone Blayne Song APRN Primary Care Provider [phone] Encounters Date Type Department Care Team Description 05/08/2024 Lab Requisition [facility] Pathology Laboratory [address] [address] Outr Resulting Lab, Provider 05/08/2024 Lab Requisition [facility] Pathology & Laboratory [address] [address] Outr Resulting Lab, Provider 05/08/2024 Lab Requisition [facility] Pathology Laboratory [address] [address] Outr Resulting Lab, Provider 03/19/2024 Lab Requisition [facility] Pathology Laboratory [address] [address] Outr Resulting Lab, Provider 03/14/2024 Lab Requisition [facility] Pathology & Laboratory [address] [address] Outr Resulting Lab, Provider from Last 3 [...] Comments HOLD SST Today 05/07/2024 15:50 EDT HOLD SST Today 05/07/2024 15:50 EDT HEPATITIS B SURFACE ANTIGEN Today 05/07/2024 15:50 EDT HEPATITIS C AB W REFLEX TO HCV RNA BY PCR Today 05/07/2024 15:50 EDT VARICELLA IGG ANTIBODY Today 05/07/2024 15:50 EDT RUBELLA IGG ANTIBODY Today 05/07/2024 15:50 EDT HIV 1/2 ANTIGEN AND ANTIBODY, 4TH GENERATION Routine 05/07/2024 15:50 EDT PROGESTERONE Routine 03/19/2024 8:37 EDT PROGESTERONE Routine 03/14/2024 14:22 EDT from Last 3 Months Results * HOLD SST (05/07/2024 15:50 EDT) Only the most recent of2 resultswithin the time period is included. Hold Hold 05/08/2024 18:15 EDT [facility] Blood VENOUS BLOOD / Unknown 05/07/2024 15:50 EDT 05/08/2024 17:12 EDT Provider Outr Resulting Lab LAB INFO SER VICE AND SUPPORT & PHONE RESULT Performing Organization Address [facility] Co de Phone Number [facility] [address] [place] [address] * HEPATITIS C AB W REFLEX TO HCV RNA BY PCR (05/07/2024 15:50 EDT) Hep C Antibody Negative Negative 05/08/2024 19:05 EDT [facility] Blood VENOUS BLOOD / Unknown 05/07/2024 15:50 EDT 05/08/2024 17:11 EDT Provider Outr Resulting Lab CHEMISTRY & BLOOD GAS ORDERABLES Performing Organization Address [facility] Co de Phone Number [facility] [address] [place] [id number] * RUBELLA IGG ANTIBODY (05/07/2024 15:50 EDT) Rubella IgG Ab Positive See Note 05/09/2024 12:52 EDT [facility] Comment:Positive for IgG ant ibodies to Rubella virus. Blood VENOUS BLOOD / Unknown 05/07/2024 15:50 EDT 05/08/2024 17:12 EDT Provider Outr Resulting Lab CHEMISTRY & BLOOD GAS ORDERABLES Performing Organization Address [facility] Co de Phone Number [facility] [address] [place] [address] * HEPATITIS B SURFACE ANTIGEN (05/07/2024 15:50 EDT) Hep B Surface Ag Negative Negative 05/08/2024 18:34 EDT [facility] Blood VENOUS BLOOD / Unknown 05/07/2024 15:50 EDT 05/08/2024 17:11 EDT Provider Outr Resulting Lab CHEMISTRY & BLOOD GAS ORDERABLES Performing Organization Address City/[facility]/ZIP Co de Phone Number [facility] [address] [place], [place] [phone] * VARICELLA IGG ANTIBODY (05/07/2024 15:50 EDT) Varicella IgG Ab Negative See Note 05/09/2024 12:37 EDT [facility] Comment:Absence of detectabl e Varicella [...] A ND SEROLOGY ORDERABLES Performing Organization Address [facility] Co de Phone Number [facility] [address] [place] [address] * HIV 1/2 ANTIGEN AND ANTIBODY, 4TH GENERATION (05/07/2024 15:50 EDT) Pathologist [facility] HIV 1 and 2 Antibody/p24 Antigen, 4th Generation Negative Negative 05/08/2024 19:07 EDT [facility] Comment:If acute HIV-1 infec tion is suspected in a high risk patient, submit plasma specimen for HIV-1 RNA quantitation test. Blood VENOUS BLOOD / Unknown 05/07/2024 15:50 EDT 05/08/2024 17:18 EDT Narrative [facility] - 05/08/2024 19:07 EDT Fourth Generation assay performed on the Siemens Smartzeraur XPT. Provider Outr Resulting Lab IMMUNOLOGY A ND SEROLOGY ORDERABLES Performing Organization Address [facility]/ZIP Co de Phone Number [facility] [address] [place], [place] [phone] * PROGESTERONE (03/19/2024 8:37 EDT) Only the most recent of2 resultswithin the time period is included. Progesterone 17.3 See Table ng/mL 03/19/2024 22:43 EDT [facility] Comment: Female Reference [...] Resulting Lab CHEMISTRY & BLOOD GAS ORDERABLES [facility] [address] [place] [address] from Last 3 Months Care Teams Coal Grader Relationship Specialty Start Date End Date Blayne Song APRN [address] [place] [address] [address] [place] [address] PCP - General 02/21/14
--- OUTSIDE RECORDS SUMMARY | 2024-06-05 18:29 | XMS_ITS | Encounter Summary ---
Author Organization [facility] Address [address] [place] [address] Care Team Providers Care Microsoft Architect Name Role Phone Duncan Blaynesheba Molina APRN Primary Care Provider [phone] Encounter Details Date Type Department Care Team (Late st Contact Info) Description 06/13/2018 Phlebotomy Only [facility] - [address] [address] Injection Operator, Outpatient Family history of Ztyaivj-Dmhbq-Ldeyv disease (Primary Dx) Social History Tobacco Use [...] Date/Time Associated Diagnosis Comments MISCELLANEOUS TEST, NON [place] Routine 06/13/2018 16:19 EDT Family history of Tjsbopy-Whysj-Rcfj h disease documented in this encounter Results * MISCELLANEOUS TEST, NON [place] (06/13/2018 16:19 EDT) Test Name TESTING FOR KNOWN FAMILIAL GENETIC MUTATION IN MPZ GENE, C.314C>T, AT [facility] LAB, 3 06/13/2018 16:11 EDT [facility] Comment:5 ML EDTA PURPLE TOP , ROOM TEMP Result LAB ORDER CORRECTION 06/13/2018 16:46 EDT [facility] Comment:ORDERED SHIP1 Date Sample Shipped 06/13/18 06/13/2018 16:31 EDT [facility] Specimen of unknown material (specimen) TOPOGRAPHY UNKNOWN / Unknown 06/13/2018 16:19 EDT 06/13/2018 16:30 EDT Rere Pabon MD CHEMISTRY & BLOOD GAS ORDERABLES [facility] [address] [place] [address] documented in this encounter Visit Diagnoses Diagnosis Family history of Yeinche-Sueno-Whkkg disease- Primary Family history of other neurological diseases documented in this encounter Care Teams Microsoft Architect Relationship Specialty Start Date End Date Blayne Song APRN [address] [place] [address] [address] [address] PCP - General 02/21/14 documented as of this encounter
--- OUTSIDE RECORDS SUMMARY | 2024-06-05 18:29 | XMS_ITS | Encounter Summary ---
Author Organization [facility] Address [address] [place] [address] Care Team Providers Care Button Clamper Name Role Phone Blayne Song APRN Primary Care Provider [phone] Encounter Details Date Type Department Care Team (Late st Contact Info) Description 06/13/2018 Orders Only [facility] Pediatric Genetics - [facility] [address] [place] [address] Karina Ruth, MS [address] [place], [place] [address] Family history of Fsifchg-Orhak-Gevpj disease (Primary Dx) Social History Tobacco Use [...] this encounter Results * MISCELLANEOUS TEST, NON [place] (06/13/2018 16:19 EDT) Test Name TESTING FOR KNOWN FAMILIAL GENETIC MUTATION IN MPZ GENE, C.314C>T, AT [facility], 3 06/13/2018 16:11 EDT [facility] Comment:5 ML EDTA PURPLE TOP , ROOM TEMP Result LAB ORDER CORRECTION 06/13/2018 16:46 EDT [facility] Comment:ORDERED SHIP1 Date Sample Shipped 06/13/18 06/13/2018 16:31 EDT [facility] Specimen of unknown material (specimen) TOPOGRAPHY UNKNOWN / Unknown 06/13/2018 16:19 EDT 06/13/2018 16:30 EDT Rere Pabon MD CHEMISTRY & BLOOD GAS ORDERABLES Performing Organization Address City/State/[facility] Co de Phone Number [facility] [address] [place] [address] documented in this encounter Visit Diagnoses Diagnosis Family history of Dvguaph-Dwmbp-Intxd disease- Primary Family history of other neurological diseases documented in this encounter Care Teams Button Clamper Relationship Specialty Start Date End Date Blayne Song APRN [address] [place] [address] [address] [place], [place] [address] PCP - General 02/21/14 documented as of this encounter
--- OUTSIDE RECORDS SUMMARY | 2024-06-05 18:29 | XMS_ITS | Encounter Summary ---
Author Organization [facility] Address [address] [place] [address] Care Team Providers Care Ring Rolling Machine Operator Name Role Phone Duncan Blayne Molina APRN Primary Care Provider [phone] Encounter Details Date Type Department Care Team (Latest Contact Info) Description 01/05/2022 Lab Requisition [facility] Pathology & Laboratory Medicine - [facility] [address] [place] [address] Malcolm Spring, [facility] [address] [facility] [address] [place] [address] Encounter for general adult medical examination without [...] System with Manual Evaluation 01/11/2022 13:03 EDT [facility] Specimen Adequacy Satisfactory for Evaluation - transformation zone component present Scant squamous epithelial component 01/11/2022 13:03 EDT [facility] General Categorization Negative for intraepithelial lesion or malignancy 01/11/2022 13:03 EDT [facility] Attestation . 01/11/2022 13:03 EDT [facility] at 1303 Clinical History See below 01/12/20 13:03 EDT [facility] Performing Lab [facility] 01/11/2022 13:03 EDT [facility] Scanned Images 01/11/2022 13:03 EDT [facility] Papanicolaou smear specimen (specimen) CERVIX UTERI STRUCTURE / Unknown 01/04/2022 14:58 EDT 01/06/2022 12:04 EDT Malcolm Spring RPA PATHOLOGY ORDERAB LES Performing Organization Address City/[facility] Co de Phone Number [facility] [address] [place] [address] * CHLAMYDIA/N. GONORRHOEAE AMPLIFIED RNA, THINPREP (01/04/2022 14:58 EDT) Neisseria gonorrhoeae Result Negative Negative 01/06/2022 14:56 EDT [facility] Chlamydia trachomatis Result Negative Negative 01/06/2022 14:56 EDT [facility] Papanicolaou smear specimen (specimen) CERVIX UTERI STRUCTURE / Unknown 01/04/2022 14:58 EDT 01/06/2022 7:41 EDT Malcolm Spring RPA MICROBIOLOGY - GE NERAL ORDERABLES [facility] [address] [place] [address] documented in this encounter Visit Diagnoses Diagnosis Encounter for general adult medical examination without abnormal findings Unspecified general medical examination Encounter for screening for malignant neoplasm of cervix Screening for malignant neoplasm of the cervix Encounter for screening for human papillomavirus (HPV) Special screening examination for human papillomavirus (HPV) documented in this encounter Care Teams Ring Rolling Machine Operator Relationship Specialty Start Date End Date Blayne Song APRN [address] [place] [address] [address] [place] [address] PCP - General 02/21/14 documented as of this encounter
--- OUTSIDE RECORDS SUMMARY | 2024-06-05 18:29 | XMS_ITS | Clinical Summary ---
Author Organization [facility] Address [address] [place] [address] Care Team Providers Care Senior C Software Developer Name Role Phone Duncan Blayne Molina APRN Primary Care Provider [phone] Allergies No known active allergies Medications No known medications Encounters Date Type Department Care Team Description 05/08/2024 Lab Requisition [facility] Pathology & Laboratory [address] [address] Outr Resulting Lab, Provider 05/08/2024 Lab Requisition [facility] Pathology & Laboratory [address] [address] Outr Resulting Lab, Provider 05/08/2024 Lab Requisition [facility] Pathology Laboratory [address] [address] Outr Resulting Lab, Provider 03/19/2024 Lab Requisition [facility] Pathology & Laboratory [address] [address] Outr Resulting Lab, Provider 03/14/2024 Lab Requisition [facility] Pathology & Laboratory [address] [address] Outr Resulting Lab, Provider from Last 3 [...] (1 of 3 - 19+ 3-dose series) 01/20/2011 COVID-19 Vaccine ( - 2022- season) 2023 Hepatitis C Screen Completed 05/07/2024, 04/21/2022 Procedures Procedure Name Priority Date/Time Associated [...] is included. Hold Hold 05/08/2024 18:15 EDT [facility] Blood VENOUS BLOOD / Unknown 05/07/2024 15:50 EDT 05/08/2024 17:12 EDT Provider Outr Resulting Lab LAB INFO SER VICE AND SUPPORT & PHONE RESULT Performing Organization Address City/[facility]/ZIP Co de Phone Number [facility] [address] [place] [address] * HEPATITIS C AB W REFLEX TO HCV RNA BY PCR (05/07/2024 15:50 EDT) Pathologist [facility] Hep C Antibody Negative Negative 05/08/2024 19:05 EDT [facility] Blood VENOUS BLOOD / Unknown 05/07/2024 15:50 EDT 05/08/2024 17:11 EDT Provider Outr Resulting Lab CHEMISTRY & BLOOD GAS ORDERABLES Performing Organization Address [facility] Co de Phone Number [facility] [address] [place] [address] * RUBELLA IGG ANTIBODY (05/07/2024 15:50 EDT) Pathologist [facility] Rubella IgG Ab Positive See Note 05/09/2024 12:52 EDT [facility] Comment:Positive for IgG ant ibodies to Rubella virus. Blood VENOUS BLOOD / Unknown 05/07/2024 15:50 EDT 05/08/2024 17:12 EDT Provider Outr Resulting Lab CHEMISTRY & BLOOD GAS ORDERABLES Performing Organization Address [facility] Co de Phone Number [facility] [address] [place] [address] * HEPATITIS B SURFACE ANTIGEN (05/07/2024 15:50 EDT) Pathologist [facility] Hep B Surface Ag Negative Negative 05/08/2024 18:34 EDT [facility] Blood VENOUS BLOOD / Unknown 05/07/2024 15:50 EDT 05/08/2024 17:11 EDT Provider Outr Resulting Lab CHEMISTRY & BLOOD GAS ORDERABLES Performing Organization Address [facility] Co de Phone Number [facility] [address] [place] [address] * VARICELLA IGG ANTIBODY (05/07/2024 15:50 EDT) Pathologist [facility] Varicella IgG Ab Negative See Note 05/09/2024 12:37 EDT [facility] Comment:Absence of detectabl e Varicella [...] A ND SEROLOGY ORDERABLES Performing Organization Address [facility] Co de Phone Number [facility] [address] [place] [address] * HIV 1/2 ANTIGEN AND ANTIBODY, 4TH GENERATION (05/07/2024 15:50 EDT) HIV 1 and 2 Antibody/p24 Antigen, 4th Generation Negative Negative 05/08/2024 19:07 EDT [facility] Comment:If acute HIV-1 infec tion is suspected in a high risk patient, submit plasma specimen for HIV-1 RNA quantitation test. Blood VENOUS BLOOD / Unknown 05/07/2024 15:50 EDT 05/08/2024 17:18 EDT Narrative [facility] - 05/08/2024 19:07 EDT Fourth Generation assay performed on the Siemens Democracy Engineaur XPT. Provider Outr Resulting Lab IMMUNOLOGY A ND SEROLOGY ORDERABLES [facility] [address] [place] [address] * PROGESTERONE (03/19/2024 8:37 EDT) Only the most recent of2 resultswithin the time period is included. Progesterone 17.3 See Table ng/mL 03/19/2024 22:43 EDT [facility] Comment: Female Reference Ranges: [...] CHEMISTRY & BLOOD GAS ORDERABLES [facility] [address] [place] [address] from Last 3 Months Care Teams Senior C Software Developer Relationship Specialty Start Date End Date Blayne Song APRN [address] [facility] [address] [place], [place] [id number] PCP - General 02/21/14
--- OUTSIDE RECORDS SUMMARY | 2024-06-05 18:29 | XMS_ITS | Encounter Summary ---
Author Organization [facility] Address [address] [place] [address] Care Team Providers Care Security Control Center Operator Name Role Phone Blayne Song APRN Primary Care Provider [phone] Reason for Visit * Reason Onset Date Comments Billing Question 09/11/2018 Encounter Details Date Type Department Care Team (Late st Contact Info) Description 09/11/2018 Telephone [facility] Pediatric Pulmonary - [facility] [address] [place], [place] [address] FarazKarina, MS [address] [place], [place] [address] Billing Question Social History Tobacco Use Types [...] Olya that the actual genetic testing at [facility] was free. The blood draw through [facility] was not included in that and [...] and also call patient financial services at [phone] and see if they could set up [...] on filedocumented in this encounter Care Teams Security Control Center Operator Relationship Specialty Start Date End Date Blayne Song APRN [address] [place] [address] [address] [place] [address] PCP - General 02/21/14 documented as of this encounter
--- OUTSIDE RECORDS SUMMARY | 2024-06-05 18:29 | XMS_ITS | Clinical Summary ---
Author Organization [facility] Address [facility] [place] [address] Care Team Providers Care Gas Leak Tester Name Role Phone Malcolm Spring Primary Care Provider [phone] Encounters Date Type Department Care Team Description 05/08/2024 Transcribe Orders eDH Incoming Referrals [phone] Petra Meza CNM Encounter for supervision of normal , antepartum, unspecified ; Supervision of resulting from assisted reproductive technology in second trimester from Last 3 Months Social History Tobacco Use Types Packs/Day Years Used Date Smoking Tobacco: Never Assessed Estimated Date of Delivery Comme nts Yes 11/23/2024 Sex and Gender Information Value Date Recorded Sex Assigned at Not on file Gender Identity Not on file Sexual Orientation Not on file Plan of Treatment Upcoming Encounters Date Type Department Care Team (Late st Contact Info) Description 06/29/2024 10:00 AM EDT Office Visit Obstetrics [place] [address] Pollo Wilson, [facility] DR OBSTETRICS & [place] [address] 06/29/2024 11:00 AM EDT [place] [phone] Petra Meza CNM [address] [place] [address] [place] [address] 06/29/2024 12:00 PM EDT Office Visit Obstetrics [place] [address] Vivek Lala MD [facility] DR OBSTETRICS [place] [address] Health Maintenance Due Date Last Done Comments HIV screen 01/20/2010 Hepatitis C Screening 01/20/2010 Hepatitis B vaccine (0-59 yrs) (1) 01/20/2011 Tdap adult 01/20/2011 Tetanus vaccine 01/20/2011 HPV test 01/20/2022 PAP Smear 01/20/2022 Covid-19 Vaccine ( - 2022-24 season) 2023 Influenza (Flu) vaccine (1 o f 1 - Influenza standard series) 06/10/2024 Procedures Procedure Name Priority Date/Time Associated Diagnosis Comments GENETIC STUDY SCAN 05/16/2024 12 :00 AM EDT GENETIC STUDY SCAN 05/15/2024 12 :00 AM EDT LAB SCAN 05/07/2024 12:00 AM EDT from Last 3 Months Results * Scan Doc: Genetic Study (05/16/2024 12:00 AM EDT) Only the most recent of2 resultswithin the time period is included. Narrative 05/16/2024 12:00 AM EDT Ordered by an unspecified provider. Scanning Provider MEDIA MGR SCAN EXT O RDR/RSLT * Scan Doc: Lab (05/07/2024 12:00 AM EDT) Narrative 05/07/2024 12:00 AM EDT Ordered by an unspecified provider. Scanning Provider MEDIA MGR SCAN EXT O RDR/RSLT from Last 3 Months Care Teams Gas Leak Tester Relationship Specialty Start Date End Date Malcolm Spring PA [address] [place] [address] PCP - General Internal Medicine 08/08/21
--- OUTSIDE RECORDS SUMMARY | 2024-06-05 18:29 | XMS_ITS | Encounter Summary ---
[place] [address] Care Team Providers Care Plate Slitter And Inspector Name Role Phone Toño Owens MD, Mark Primary Care Provider [phone] Encounter Details Date Type Department Care Team (Late Contact Info) Description 08/06/2021 [place]phone [place] [phone] Bryanna Bush Social History Tobacco Use Types [...] placed to the Ds office and this curriculum writer was told the referral should be going to bariatric surgery. A detailed message was left for the patient to contact Gen Surg's department at [phone]. documented in this encounter Plan of Treatment Upcoming Encounters Date Type Department Care Team (Late Contact Info) Description 06/29/2024 10:00 AM EDT Office Visit Obstetrics [place] [phone] Pollo Wilson, [facility] DR OBSTETRICS & [place] [address] 06/29/2024 11:00 AM ED[place] [address] Petra Meza Rodo [address] [place] [address] [address] [facility], [place] [address] 06/29/2024 12:00 PM EDT Office Visit Obstetrics [place] [address] Vivek Lala MD [facility] DR OBSTETRICS [place] [address] documented as of this encounter Visit Diagnoses Not on filedocumented in this encounter Care Teams Plate Slitter And Inspector Relationship Specialty Start Date End Date Kevin Lundberg MD [address] [place] [address] [address] [facility], [place] [address] PCP - General 09/01/10 08/07/21 documented as of this encounter
--- OUTSIDE RECORDS SUMMARY | 2024-06-05 18:29 | XMS_ITS | Encounter Summary ---
Author Organization [facility] Address [address] [place] [address] Care Team Providers Care Instructional Design Consultant Name Role Phone Blayne Song APRN Primary Care Provider [phone] Reason for Visit * Reason Onset Date Comments Other 09/06/2018 Encounter Details Date Type Department Care Team (Late st Contact Info) Description 09/06/2018 Telephone [facility] Pediatric Genetics - [facility] [address] [place], [place] [address] YakelinDemetriaMela Camargo, [place] [address] [place], [place] [id number] Other Social History Tobacco Use Types Packs/Day [...] on filedocumented in this encounter Care Teams Instructional Design Consultant Relationship Specialty Start Date End Date Blayne Song APRN [address] [place] [address] [address] [place] [address] PCP - General 02/21/14 documented as of this encounter
--- OUTSIDE RECORDS SUMMARY | 2024-06-05 18:29 | XMS_ITS | Encounter Summary ---
Author Organization [facility] Address [address] [place] [address] Care Team Providers Care Otr Flatbed Driver Name Role Phone Blayne Song APRN Primary Care Provider [phone] Encounter Details Date Type Department Care Team (Late st Contact Info) Description 01/13/2024 Lab Requisition [facility] Pathology & Laboratory Medicine - [facility] [address] [place] [address] Outr Resulting Lab, Provider Social History Tobacco [...] 12.5 See Table ng/mL 01/13/2024 22:02 EDT [facility] Comment: Female Reference Ranges: [...] Resulting Lab CHEMISTRY & BLOOD GAS ORDERABLES [facility] [address] [place] [address] documented in this encounter Visit Diagnoses Not on filedocumented in this encounter Care Teams Otr Flatbed Driver Relationship Specialty Start Date End Date Blayne Song APRN [address] [place] [address] [address] [place], [place] [address] PCP - General 02/21/14 documented as of this encounter
--- OUTSIDE RECORDS SUMMARY | 2024-06-05 18:29 | XMS_ITS | Encounter Summary ---
Author Organization [facility] Address [address] [place] [address] Care Team Providers Care Laser Beam Trim Operator Name Role Phone Blayne Song APRN Primary Care Provider Encounter Details Date Type Department Care Team (Late st Contact Info) Description 04/22/2022 Lab Requisition [facility] Pathology & Laboratory Medicine - [facility] [address] [place] [address] Outr Resulting Lab, Provider Social History Tobacco [...] 15:00 EDT) Hold Hold 04/22/2022 18:47 EDT [facility] Blood VENOUS BLOOD / Unknown 04/21/2022 15:00 EDT 04/22/2022 17:41 EDT Provider Outr Resulting Lab LAB INFO SER VICE AND SUPPORT & PHONE RESULT Performing Organization Address [facility] Co de Phone Number [facility] [address] [place] [address] * HIV 1/2 ANTIGEN AND ANTIBODY, 4TH GENERATION (04/21/2022 15:00 EDT) HIV 1 and 2 Antibody/p24 Antigen, 4th Generation Negative Negative 04/23/2022 9:56 EDT [facility] Comment:If acute HIV-1 infec tion is suspected in a high risk patient, submit plasma specimen for HIV-1 RNA quantitation test. Blood VENOUS BLOOD / Unknown 04/21/2022 15:00 EDT 04/22/2022 17:37 EDT Narrative [facility] - 04/23/2022 9:56 EDT Fourth Generation assay performed on the Siemens Valcare Medicalaur XPT. Provider Outr Resulting Lab IMMUNOLOGY A ND SEROLOGY ORDERABLES Performing Organization Address [facility] Co de Phone Number [facility] [address] [place] [address] documented in this encounter Visit Diagnoses Not on filedocumented in this encounter Care Teams Laser Beam Trim Operator Relationship Specialty Start Date End Date Blayne Song APRN [address] [place] [address] [address] [place], [place] [address] PCP - General 02/21/14 documented as of this encounter
--- OUTSIDE RECORDS SUMMARY | 2024-06-05 18:30 | XMS_ITS | Encounter Summary ---
Author Organization [facility] Address [address] [place] [address] Care Team Providers Care Crop Adjuster Name Role Phone SongBrianna Tracy WARD Primary Care Provider [phone] Reason for Referral * Consult (Routine) - Closed Specialty Diagnoses / Procedures Referred By Contabdullahi salazar Referred To Contact Neurology Diagnoses Panchito Saldivar MD [address] [place] [phone] [facility] Neurology [facility] [place] [address] [place] [address] Referral ID Status Reason Start Date Expiration Date V isits Requested Visits Authorized [id number] Closed Specialty Services Required 02/21/2014 1 1 [...] 15:59 EDT - 02/21/2014 20:26 EDT Emergency [facility] Emergency Department - [address] [address] Panchito Lucero MD [address] [place] [address], [place] [id number] Emergency, MD Devika Adkins (Primary Dx) Discharge [...] w; her. * Elgin Balderas - 02/21/2014 3355 EDT Blood drawn via saline lock per [...] Recent head injury: No recent head injuries PAINT STOCK CLERK treatment: None History of seizures: no Review [...] LAB UNIT COLLECT ORDERABLES Performing Organization Address City/State/[facility] Co de Phone Number [facility] [address] [place] [address] * POCT URINE TEST (02/21/2014 18:37 EDT) [...] Basophils 0.04 0.01 - 0.11 K/cmm [facility] Type of Diff: Automated [facility] 02/21/2014 18:2 3 EDT 02/21/2014 18:46 EDT Panchito Lucero MD HEMATOLOGY & PF4 ORD ERABLES [facility] [address] [place] [address] * HEMAGRAM (02/21/2014 18:23 EDT) WBC 6.89 [...] & PF4 ORD ERABLES Performing Organization Address [facility] Co de Phone Number [facility] [address] [place] [address] * CREATININE (02/21/2014 18:23 EDT) Creatinine 0.61 0.52 - 1.04 mg/dl [facility] GFR, Calculated >60 >60 ml/min/1.7 3m2 [facility] Blood specimen (specimen) 02/21/2014 18:23 EDT 02/21/2014 18:46 EDT Panchito Lucero MD CHEMISTRY & BLOOD GA S ORDERABLES Performing Organization Address [facility] Co de Phone Number [facility] [address] [place] [address] * (ABNORMAL) BUN (02/21/2014 18:23 EDT) BUN <3(L) 10 - 26 mg/dl [facility] Blood specimen (specimen) 02/21/2014 18:23 EDT 02/21/2014 18:46 EDT Panchito Lucero MD CHEMISTRY & BLOOD GA S ORDERABLES Performing Organization Address [facility] Co de Phone Number [facility] [address] [place] [address] * ELECTROLYTES (02/21/2014 18:23 EDT) Sodium 141 136 - 145 mEq/L [facility] Potassium 4.1 3.5 - 5.0 mEq/L [facility] Chloride 102 96 - 110 mEq/L [facility] CO2 28 24 - 32 mEq/L [facility] Blood specimen (specimen) 02/21/2014 18:23 EDT 02/21/2014 18:46 EDT Panchito Lucero MD CHEMISTRY & BLOOD GA S ORDERABLES Performing Organization Address [facility]/ZIP Co de Phone Number [facility] [address] [place] [address] * SCREENING GLUCOSE (02/21/2014 18:23 EDT) Glucose, Screening 100 70 - 100 mg/dl [facility] Blood specimen (specimen) 02/21/2014 18:23 EDT 02/21/2014 18:46 EDT Panchito Lucero MD CHEMISTRY & BLOOD GA S ORDERABLES Performing Organization Address [facility] Co de Phone Number [facility] [address] [place] [address] * (ABNORMAL) POCT URINE DIPSTICK (02/21/2014 17:01 EDT) Color YELLOW [facility] Clarity, UA Clear [facility] Glucose Neg Neg [facility] Bilirubin Neg Neg [facility] Ketones Neg Neg [facility] Specific Chunky 1.010 1.001 - 1.035 [facility] Blood Trace(A) Neg [facility] pH 7.0 4.6 - 8.0 [facility] Protein Neg Neg [facility] Urobilinogen 0.2 0.2 - 1.0 E.U./dl [facility] Nitrite Neg Neg [facility] Leuk Esterase Neg Neg [facility]ANNAH N[facility]ON [facility] feed blender ID [id number] [facility] Comment:Test performed at Em ergency Department Urine specimen (specimen) 02/21/2014 17:01 EDT 02/21/2014 17:12 EDT Panchito Lucero MD POINT OF CARE TEST O RDERABLES Performing Organization Address [facility] Co de Phone Number [facility] [address] [place] [address] documented in this encounter Visit Diagnoses Diagnosis Spells- Primary Other convulsions documented in this encounter Orders Nursing Count Last Ordered Date First Orde red Date PULSE OXIMETRY 1 02/21/2014 documented in this encounter Care Teams Crop Adjuster Relationship Specialty Start Date End Date Brianna Song APRN [address] [place] [address] [address] [place] [address] PCP - General 02/21/14 documented as of this encounter
[2024-06-07 15:58] LABS: Chlamydia Result Negative (Negative); GC Result Negative (Negative)
== END 2024-06-05 18:28 | disposition home or self-care (01) ==
LOC: LBN 18:27
PROVIDERS: PCP Physician Assistant; Visit Provider Advanced Practice Midwife
DX: Z34.92 Encounter for supervision of normal pregnancy, unspecified, second trimester (principal); Z3A.15 15 weeks gestation of pregnancy
CPT/HCPCS: 87491; 87591

== ENCOUNTER 2024-07-02 16:25 | Outpatient (REF) | payer MEDICAID, SELFPAY | END 2024-07-02 16:26 | disposition home or self-care (01) | LOC: LBN 16:25 | PROVIDERS: PCP Physician Assistant; Visit Provider Advanced Practice Midwife | DX: Z87.440 Personal history of urinary (tract) infections (principal); O26.891 Other specified pregnancy related conditions, first trimester; R10.2 Pelvic and perineal pain | CPT/HCPCS: 87086; 87480; 87510; 87660 ==

== ENCOUNTER 2024-08-30 03:08 | Outpatient (CLI) | payer MEDICAID, SELFPAY ==
[2024-08-30 16:40] LABS: Bilirubin Negative (Negative); Blood Moderate (Negative); Clarity Clear (Clear); Glucose Negative (Negative); Ketones Negative (Negative); Leukocyte Esterase Negative (Negative); Nitrite Negative (Negative); Specific Gravity 1.015 (1.005-1.025); Urobilinogen 0.2 mg/dL (Up to 0.2)
[2024-08-30 16:49] LABS: HGB 12.3 g/dL (11.2-15.7); MCH 30.4 pg (27.0-33.0); MCHC 34.2 % (32.0-36.0); MCV 89 fL (80-95); Platelet Count 244 10^3/uL (130-400); RBC 4.04 10^6/uL (3.93-5.22); RDW 13.1 % (11.7-14.6); RDW-SD 42.7 fL; WBC 9.31 10^3/uL (4.4-10.8)
[2024-08-30 17:03] LABS: Bacteria Many HPF (Negative); C & S Indicated? No/Sq. Contamination; Crystals Negative HPF (Negative); Epithelial Cells Many HPF (Negative); Mucus Negative (Negative)
[2024-08-30 17:06] LABS: Glucose,1 Hr (Glucola) 161 mg/dL (80-140)
== END 2024-08-30 03:09 | disposition home or self-care (01) ==
LOC: LBO 03:08
PROVIDERS: PCP Physician Assistant; Visit Provider Advanced Practice Midwife
DX: O26.892 Other specified pregnancy related conditions, second trimester (principal); R10.2 Pelvic and perineal pain; Z67.91 Unspecified blood type, Rh negative; Z34.92 Encounter for supervision of normal pregnancy, unspecified, second trimester
CPT/HCPCS: 36415; 82950; 85027; 86850; 90384; 81003; 81015

== ENCOUNTER 2024-09-14 01:01 | Outpatient (CLI) | payer MEDICAID, SELFPAY ==
[2024-09-14 09:37] LABS: Glucose 1 Hour 177 mg/dL
[2024-09-14 11:39] LABS: Glucose 3 Hour 81 mg/dL
== END 2024-09-14 01:02 | disposition home or self-care (01) ==
LOC: LBO 01:01
PROVIDERS: Advanced Practice Midwife; PCP Physician Assistant; Visit Provider Advanced Practice Midwife
DX: R73.09 Other abnormal glucose (principal); Z34.93 Encounter for supervision of normal pregnancy, unspecified, third trimester; O26.893 Other specified pregnancy related conditions, third trimester; R10.2 Pelvic and perineal pain
CPT/HCPCS: 36415; 82951; 87086

== ENCOUNTER 2024-09-25 12:00 | Outpatient (CLI) | payer MEDICAID, SELFPAY ==
--- OUTSIDE RECORDS SUMMARY | 2024-09-25 12:02 | XMS_ITS | Encounter Summary ---
Author Organization [facility] Address [address] [place] [address] Care Team Providers Care Monogram Operator Name Role Phone Blayne Song APRN Primary Care Provider [phone] Encounter Details Date Type Department Care Team (Latest Contact Info) Description 01/05/2022 Lab Requisition [facility] Pathology & Laboratory Medicine - [facility] [address] [place] [address] Malcolm Spring, [facility] [address] [facility] JIM [address] [place] [id number] Encounter for general adult medical examination without [...] 05/11/2020 Verbally Threaten Not on file 05/11/2020 Comments Unknown Sex and Gender Information Value Date Recorded Sex Assigned at Not on file Legal Sex Female 15:59 EDT Gender Identity Not on file Sexual Orientation [...] System with Manual Evaluation 01/11/2022 13:03 EDT [facility] Specimen Adequacy Satisfactory for Evaluation - transformation zone component present Scant squamous epithelial component 01/11/2022 13:03 EDT [facility] General Categorization Negative for intraepithelial lesion or malignancy 01/11/2022 13:03 EDT [facility] Attestation . 01/11/2022 13:03 T [facility] at 1303 Clinical History See below 01/12/20 13:03 EDT [facility] Performing Lab [facility] 01/11/2022 13:03 EDT [facility] Scanned Images 01/11/2022 13:03 EDT [facility] Papanicolaou smear specimen (specimen) CERVIX UTERI STRUCTURE / Unknown 01/04/2022 14:58 EDT 01/06/2022 12:04 EDT Malcolm Spring [facility] PATHOLOGY ORDERABLES Cassandra l Result [facility] [address] [place] [address] * CHLAMYDIA/N. GONORRHOEAE AMPLIFIED RNA, THINPREP (01/04/2022 14:58 EDT) Neisseria gonorrhoeae Result Negative Negative 01/06/2022 14:56 EDT [facility] Chlamydia trachomatis Result Negative Negative 01/06/2022 14:56 EDT [facility] Papanicolaou smear specimen (specimen) CERVIX UTERI STRUCTURE / Unknown 01/04/2022 14:58 EDT 01/06/2022 7:41 EDT Malcolm Spring RPA MICROBIOLOGY - GENERAL OR DERABLES Final Result [facility] [address] [place] [address] documented in this encounter Visit Diagnoses Diagnosis Encounter for general adult medical examination without abnormal findings Unspecified general medical examination Encounter for screening for malignant neoplasm of cervix Screening for malignant neoplasm of the cervix Encounter for screening for human papillomavirus (HPV) Special screening examination for human papillomavirus (HPV) documented in this encounter Care Teams Monogram Operator Relationship Specialty Start Date End Date Blayne Song APRN [address] [place] [address] [address] [place] [address] PCP - General 02/21/14 documented as of this encounter
--- OUTSIDE RECORDS SUMMARY | 2024-09-25 12:02 | XMS_ITS | Clinical Summary ---
Author Organization [facility] Address [facility] [place] [address] Care Team Providers Care Combination Man Name Role Phone Malcolm Spring Primary Care Provider [phone] Allergies Active Allergy Reactions Criticality Noted Date Comments Sulfa (Sulfonamide Antibiotics) Other (See Comments) 06/14/2024 Flu like symptoms Medications Medication Sig Dispensed Refills Start Date End Date Status vitamin with ogkakoka-Ac-Mjzt-FA Tablet Take by mouth. Active cranberry fruit extract (CRANBERRY CONCENTRATE ORAL) Take by mouth. Active aspirin EC 81 mg EC (DR) tablet Take 81 mg by mouth daily. 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 06/29/2024 10:13 AM EDT - 06/29/2024 11:59 PM EDT Hospital En[place] [address] Scot Meza CNM Supervision of resulting from assisted reproductive technology in second trimester; Peroneal muscular atrophy Discharge Disposition: Home 06/29/2024 10:00 AM EDT Office Visit Obstetrics [place] [phone] [place]o [place], [facility] Encounter for procreative genetic counseling; 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 and possibly affecting fetus, antepartum, single or unspecified fetus 06/29/2024 Travel from Last 3 Months Social History Tobacco Use Types Packs/Day Years Used Date Smoking Tobacco: Never Smokeless Tobacco: Never Tobacco Cessation:Counseling Given: Not Answered Estimated Date of Delivery Comme nts Yes 11/23/2024 Sex and Gender Information Value Date Recorded Sex Assigned at Not on file Gender Identity Not on file Sexual Orientation Not on file Last Filed Vital Signs Vital Sign Reading Time Taken Comments Blood Pressure 128/82 06/29/2024 12:10 PM EDT Pulse - - Temperature - - Respiratory Rate - - Oxygen Saturation - - Inhaled Oxygen Concentration - - Weight 106.6 kg (235 lb) 06/29/2024 12:10 PM EDT Height - - Body Mass Index - - Plan of Treatment Health Maintenance Due Date Last Done Comments HIV screen 01/20/2010 Hepatitis C Screening 01/20/2010 Hepatitis B vaccine (0-59 yrs) (1) 01/20/2011 Tetanus/Diphtheria/Pertussis Vaccines (1 - Tdap) 01/20 HPV test 01/20/2022 PAP Smear 01/20/2022 Covid-19 Vaccine (1 - season) 2024 Influenza (Flu) vaccine (1 o f 1 - Influenza standard series) 06/10/2024 RSV Vaccine (1 - Risk 1-dose series) 09/28/20 Procedures Procedure Name Priority Date/Time Associated Diagnosis Comments US OB DETAILED MORPHOLOGY Routine 06/29/2024 11:53 AM EDT Supervision of resulting from assisted reproductive technology in second trimester Peroneal muscular atrophy from Last 3 Months Results * US OB Detailed Morphology (06/29/2024 11:53 AM EDT) WORKSTATION ID [id number] RAD Anatomical Region Laterality Modality Pelvis, Abdomen Ultrasound 06/29/2024 10:5 9 AM EDT Impressions 06/29/2024 12:05 PM EDT 2nd Trimester - Detailed Morphology - Summary Single intrauterine with a gestational age of 19w 0d based on LMP ??(02/17/24). Composite age based on the current ultrasound alone is 19w 3d. Current growth parameters are consistent with prior dating indicating normal growth. Amniotic fluid volume is subjectively normal for gestational age. Detailed anatomic evaluation was performed and no structural abnormalities are noted. Thank you for letting us participate in the care of this patient. If you are a health care provider and have any questions regarding this report, please contact the number above. For patients who have questions, please contact the health palliative care nurse that requested your imaging first. ?Vivek Lala, Staff Physician Electronically Signed Final Report ?? 06/29/2024 12:05 pm Narrative 06/29/2024 12:05 PM EDT OBSTETRICS REPORT ?(Signed Final 06/29/2024 12:05 pm) PATIENT INFO: ID #: ? [id number] ?: ??[birth year] (34 yrs)(F) Name: ? OLYA COATS ? Visit Date: 06/29/2024 10:59 am PERFORMED BY: Performed By: ? Rhea Mays RDMS Attending: ?Dai CABALLERO, Vivek Peres Referred By: ?SCOT MEZA Location: ? [place] SERVICE(S) PROVIDED: [facility] - Detailed Morphology - [id number] ? [id number] INDICATIONS: 19 weeks gestation of ?Z3A.19 CHAROT MARIAN TOOTH; 21 HYDROXYLASA DEFICIENCY CARRIER VITAL SIGNS: Weight (lb): 232.0 Height: ?5'3 ? BMI: ? 41.09 EVALUATION: Num Of Fetuses: ? 1 Heart Rate(bpm): ??155 Cardiac Activity: ? Observed, normal rhythm Presentation: ? Cephalic Placenta: ? Posterior P. Cord Insertion: ?Within Normal Limits Amniotic Fluid LAIX FV: ?Subjectively normal for gestational age --------- BIOMETRY: --------- BPD: ?44.5 ??mm ? G.Age: ?? 19w 3d OFD: ?56.5 ??mm HC: ?161.7 ??mm ? G.Age: ?? 19w 0d AC: ?146.2 ??mm ? G.Age: ?? 19w 6d FL: ? 30.5 ??mm ? G.Age: ?? 19w 3d HUM: ?30.7 ??mm ? G.Age: ?? 20w 1d CER: ?19.6 ??mm ? G.Age: ?? 18w 6d NFT: ?4.42 ??mm NB: ?4.3 ??mm LV: ?8.3 ??mm CM: ?4.4 ??mm CI: ?78.8 ??% ? 70 - 86 FL/HC: ? 18.9 ??% ? 16.1 - 18.3 HC/AC: ? 1.11 ?1.09 - 1.39 FL/BPD: ?68.5 ??% FL/AC: ? 20.9 ??% ? Est. FW: ? 303 ??gm ?0 lb 11 oz OB HISTORY: : ?4 ?SAB: ?? 1 TOP: ?3 GESTATIONAL AGE: LMP: ? 19w 0d ?Date: ??02/17/24 ? TOO: ?? 11/23/24 U/S Today: ? 19w 3d ?TOO: ?? 11/20/24 Best: ?19w 0d ?? Det. By: ??LMP ??(02/17/24) ?TOO: ?? 11/23/24 TARGETED ANATOMY: Central Nervous System Calvarium/Cranial V.: ??Within Normal Limits Intracranial Karolina: ? Visualized Cavum: ? Visualized Parenchyma: ?Visualized Lateral Ventricles: ?Within Normal Limits Choroid Plexus: ?Visualized Cereb./Vermis: ? Within Normal Limits Cisterna Magna: ?Within Normal Limits Midline Falx: ?Visualized Spine Cervical: ?Visualized Thoracic: ?Visualized Lumbar: ?Visualized Sacral: ?Visualized Shape/Curvature: ? Visualized Head/Neck Face: ?Visualized Lips: ?Visualized Neck: ?Visualized Nuchal Fold: ? Within Normal Limits Nasal Bone: ?Present Profile: ? Visualized Orbits/Eyes: ? Visualized Mandible: ?Visualized Maxilla: ? Visualized Thorax Thoracic Contour: ?Visualized Lungs: ? Visualized 4 Chamber View: ?Visualized Cardiac Activity: ?Normal Rhythm Rt Outflow Tract: ?Visualized Lt Outflow Tract: ?Visualized Aortic Arch: ? Visualized Ductal Arch: ? Visualized SVC: ? Visualized Interventr. Septum: ?Visualized Cardiac [place]: ?Visualized Diaphragm: ? Visualized 3 Vessel View: ? Visualized 3 V Trachea View: ?Visualized IVC: ? Visualized Crossing: ?Visualized Abdomen Ventral Wall: ?Visualized Cord Insertion: ?Visualized Situs: ? Normal Stomach: ? Visualized Liver: ? Visualized Lt Kidney: ? Visualized Rt Kidney: ? Visualized Bladder: ? Visualized Bowel: ? Visualized Extremities Lt Humerus: ?Visualized Rt Humerus: ?Visualized Lt Forearm: ?Visualized Rt Forearm: ?Visualized Lt Hand: ? Visualized Rt Hand: ? Visualized Lt Femur: ?Visualized Rt Femur: ?Visualized Lt Lower Leg: ?Visualized Rt Lower Leg: ?Visualized Lt Foot: ? Visualized Rt Foot: ? Visualized Other Umbilical Cord: ?3 vessel cord Genitalia: ? Male CERVIX UTERUS ADNEXA: Right Ovary Not visualized Left Ovary Size(cm) ? 2.2 ??x ?? 2.6 ?x ??1.5 ? Vol(ml): 4.5 Visualized, corpus luteum seen Procedure Note Vivek Lala MD - 06/29/2024 OBSTETRICS REPORT (Signed Final 06/29/2024 12:05 pm) PATIENT INFO: ID #: [id number] : [birth year] (34 yrs)(F) Name: OLYA COATS Visit Date: 06/29/2024 10:59 am PERFORMED BY: Performed By: Rhea Mays RDMS Attending: Vivek Lala MD Referred By: SCOT MEZA Location: [place] SERVICE(S) PROVIDED: [facility] - Detailed Morphology - [id number] INDICATIONS: 19 weeks gestation of Z3A.19 CHAROT MARIAN TOOTH; 21 HYDROXYLASA DEFICIENCY CARRIER VITAL SIGNS: Weight (lb): 232.0 Height: 5'3 BMI: 41.09 EVALUATION: Num Of Fetuses: 1 Heart Rate(bpm): 155 Cardiac Activity: Observed, normal rhythm Presentation: Cephalic Placenta: Posterior P. Cord Insertion: Within Normal Limits Amniotic Fluid ALIX FV: Subjectively normal for gestational age --------- BIOMETRY: --------- BPD: 44.5 mm G.Age: 19w 3d OFD: 56.5 mm HC: 161.7 mm G.Age: 19w 0d AC: 146.2 mm G.Age: 19w 6d FL: 30.5 mm G.Age: 19w 3d HUM: 30.7 mm G.Age: 20w 1d CER: 19.6 mm G.Age: 18w 6d NFT: 4.42 mm NB: 4.3 mm LV: 8.3 mm CM: 4.4 mm CI: 78.8 % 70 - 86 FL/HC: 18.9 % 16.1 - 18.3 HC/AC: 1.11 1.09 - 1.39 FL/BPD: 68.5 % FL/AC: 20.9 % 20 - 24 Est. FW: 303 gm 0 lb 11 oz OB HISTORY: : 4 SAB: 1 TOP: 3 GESTATIONAL AGE: LMP: 19w 0d Date: 02/17/24 TOO: 11/23/24 U/S Today: 19w 3d TOO: 11/20/24 Best: 19w 0d Det. By: LMP (02/17/24) TOO: 11/23/24 TARGETED ANATOMY: Central Nervous System Calvarium/Cranial V.: Within Normal Limits Intracranial Karolina: Visualized Cavum: Visualized Parenchyma: Visualized Lateral Ventricles: Within Normal Limits Choroid Plexus: Visualized Cereb./Vermis: Within Normal Limits Cisterna Magna: Within Normal Limits Midline Falx: Visualized Spine Cervical: Visualized Thoracic: Visualized Lumbar: Visualized Sacral: Visualized Shape/Curvature: Visualized Head/Neck Face: Visualized Lips: Visualized Neck: Visualized Nuchal Fold: Within Normal Limits Nasal Bone: Present Profile: Visualized Orbits/Eyes: Visualized Mandible: Visualized Maxilla: Visualized Thorax Thoracic Contour: Visualized Lungs: Visualized 4 Chamber View: Visualized Cardiac Activity: Normal Rhythm Rt Outflow Tract: Visualized Lt Outflow Tract: Visualized Aortic Arch: Visualized Ductal Arch: Visualized SVC: Visualized Interventr. Septum: Visualized Cardiac [place]: Visualized Diaphragm: Visualized 3 Vessel View: Visualized 3 V Trachea View: Visualized IVC: Visualized Crossing: Visualized Abdomen Ventral Wall: Visualized Cord Insertion: Visualized Situs: Normal Stomach: Visualized Liver: Visualized Lt Kidney: Visualized Rt Kidney: Visualized Bladder: Visualized Bowel: Visualized Extremities Lt Humerus: Visualized Rt Humerus: Visualized Lt Forearm: Visualized Rt Forearm: Visualized Lt Hand: Visualized Rt Hand: Visualized Lt Femur: Visualized Rt Femur: Visualized Lt Lower Leg: Visualized Rt Lower Leg: Visualized Lt Foot: Visualized Rt Foot: Visualized Other Umbilical Cord: 3 vessel cord Genitalia: Male CERVIX UTERUS ADNEXA: Right Ovary Not visualized Left Ovary Size(cm) 2.2 x 2.6 x 1.5 Vol(ml): 4.5 Visualized, corpus luteum seen IMPRESSION 2nd Trimester - Detailed Morphology - Summary Single intrauterine with a gestational age of 19w 0d based on LMP (02/17/24). Composite age based on the current ultrasound alone is 19w 3d. Current growth parameters are consistent with prior dating indicating normal growth. Amniotic fluid volume is subjectively normal for gestational age. Detailed anatomic evaluation was performed and no structural abnormalities are noted. Thank you for letting us participate in the care of this patient. If you are a health care provider and have any questions regarding this report, please contact the number above. For patients who have questions, please contact the health palliative care nurse that requested your imaging first. Vivek Lala, Staff Physician Electronically Signed Final Report 06/29/2024 12:05 pm [facility] OB ORDERABLE S from Last 3 Months Care Teams Combination Man Relationship Specialty Start Date End Date Malcolm Spring PA [address] [place] [address] PCP - General Internal Medicine 08/08/21
--- OUTSIDE RECORDS SUMMARY | 2024-09-25 12:02 | XMS_ITS | Encounter Summary ---
Author Organization [facility] Address [address] [place] [address] Care Team Providers Care District Administrative Assistant Name Role Phone Blayne Song APRN Primary Care Provider [phone] Encounter Details Date Type Department Care Team (Late st Contact Info) Description 06/06/[address] [facility] Pathology & Laboratory Medicine - [facility] [address] [place] [address] Outr Resulting Lab, Provider Social History Tobacco [...] Procedure Name Priority Date/Time Associated Diagnosis Comments CHLAMYDIA/N. GONORRHOEAE AMPLIFIED NUCLEIC ACID Routine 06/05/2024 16:00 EDT documented in this encounter Results * CHLAMYDIA/N. GONORRHOEAE AMPLIFIED NUCLEIC ACID (06/05/2024 16:00 EDT) Neisseria gonorrhoeae Result Negative Negative 06/07/2024 13:15 EDT [facility] Chlamydia trachomatis Result Negative Negative 06/07/2024 13:15 EDT [facility] Swab VAGINAL STRUCTURE / Unknown 06/05/2024 16:00 EDT 06/06/2024 22:01 EDT us Provider Outr Resulting Lab MICROBIOLOGY - GENER AL ORDERABLES Final Result [facility] [address] [place], [place] [id number] documented in this encounter Visit Diagnoses Not on filedocumented in this encounter Care Teams District Administrative Assistant Relationship Specialty Start Date End Date Blayne Song APRN [address] [place] [address] [address] [place], [place] [address] PCP - General 02/21/14 documented as of this encounter
--- OUTSIDE RECORDS SUMMARY | 2024-09-25 12:02 | XMS_ITS | Encounter Summary ---
Author Organization [facility] Address [address] [place] [address] Care Team Providers Care Food And Beverage Lead Name Role Phone Blayne Song APRN Primary Care Provider [phone] Encounter Details Date Type Department Care Team (Late st Contact Info) Description 01/13/2024 Lab Requisition [facility] Pathology & Laboratory Medicine - [facility] [address] [place] [address] Outr Resulting Lab, Provider Social History Tobacco [...] 12.5 See Table ng/mL 01/13/2024 22:[address] [facility] Comment: Female Reference Ranges: [...] Unknown 01/13/2024 9:23 EDT 01/13/2024 21:27 EDT us Provider Outr Resulting Lab CHEMISTRY & BLOOD GA S ORDERABLES Final Result [facility] [address] [place] [address] documented in this encounter Visit Diagnoses Not on filedocumented in this encounter Care Teams Food And Beverage Lead Relationship Specialty Start Date End Date Blayne Song APRN [address] [place] [address] [address] [place] [address] PCP - General 02/21/14 documented as of this encounter
--- OUTSIDE RECORDS SUMMARY | 2024-09-25 12:02 | XMS_ITS | Encounter Summary ---
Author Organization [facility] [place] [address] Care Team Providers Care Wellness Consultant Name Role Phone Malcolm Spring Primary Care Provider [phone] Reason for Visit * Reason Comments Known Genetic Condition Jyqajdk-Lrxng-Lu oth (CMT) hereditary neuropathy, currently asymptomatic Encounter Details Date Type Department Care Team (Late st Contact Info) Description 06/29/2024 10:00 AM EDT Office Visit Obstetrics [place] [address] Pollo Wilson, [facility] OBSTETRICS & [place] [address] Encounter for procreative genetic counseling; 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 female currently at 19w0d gestation. I met with Olya fora 45-minute genetic counseling visit at the [facility]. She was accompanied by her partner, Live;and her sister, Pankaj. Referring Provider: Eptra Mulkern[address] [place] [address] Chief Concern Patient presents with Known Genetic Condition Cgxmpyv-Jdids-Zoxxd (CMT) hereditary neuropathy, currently asymptomatic Previous Genetics Visits: 06/13/2018: Genetic counseling with Sandy Ruth MS, at [facility] due to family historyof CMT. 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 Visit note and test report available in [facility] Everywhere. Patient History Past Medical History: Diagnosis Date Shcygxr-Ydoop-Wsoqj disease Partner History Name: Live Roth : 01/25/1983 Sex: Male Medical History: Vitiligo Family History Congenital conditions: Cerebral palsy - Olya's maternal uncle. Known genetic conditions: Pbfmida-Yzhfc-Fldst disease - Olya's sister, mother, and multiple maternal relatives. OB History Para Term AB Living 5 0 0 0 4 0 SAB IAB Ectopic Multiple Live Births 1 3 0 0 0 LMP 02/17/2024. Spontaneous conception. TOO 11/23/2024 based on menstrual dating and supported by ultrasound (04/17/2024). Genetic Testing Results [facility] cell-free DNA screen (05/07/2024): Low risk for trisomy 21, trisomy 18, trisomy 13, sex chromosome aneuploidy, and triploidy. Male fetus. 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 Hövdingitae MPZ Gene Sequencing (06/13/2018): Positive result. 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 ClinVar ID: [id number]. Assessment 1. Nfeecli-Mtxyf-Arzcm disease: CMT is a group of hereditary motor and sensory neuropathies. More than 80 different genes are associated with CMT, and mode of inheritance varies by gene. Melissia andher relatives have a heterozygous pathogenic variant in the MPZ gene, which is associated with autosomal dominant inheritance. Each of Olya's children will have a 50% chance of inheriting the pathogenic variant. Age of onset and progression of symptoms is variable. Olya and her sister are asymptomatic, and their mother first recognized symptoms in her fifties. While late onset has been typical in their family, individuals with the same pathogenic variant have been reported with symptomsin childhood or young adulthood (PMID: [id number]). testing would be possible, which Olya declines. Presymptomatic testing of minors is currently not recommended. 2. Reproductive carrier screening: Alison are not at increased reproductive risk for any of the 445 conditions included in their expanded carrier screening performed earlier this year. Of note, Olya's report indicates that rare CLCN1 variants cause autosomal dominant myotonia congenita; the variant that Olya carries has only been reported with autosomal recessive myotonia congenita, so she is predicted to be an unaffected carrier. Furthermore, she does not endorse symptoms of this condition, such as myotonic open hearth furnace operator helper. 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 Heterozygotes may have an increased risk for cancer and cardiovascular disease. In particular, heterozygous females have an increased risk of developing breast cancer. Based on current recommendations, since Live has no family history of cancer, he should follow general population cancer screening guidelines. I encouraged Live to share this information with his PCP and his relatives. Plan Detailed anatomic ultrasound and maternal- medicine consultation today as scheduled. 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
--- OUTSIDE RECORDS SUMMARY | 2024-09-25 12:02 | XMS_ITS | Encounter Summary ---
Author Organization [facility] Address [address] [place] [address] Care Team Providers Care Improvement Auditor Name Role Phone Blayne Song APRN Primary Care Provider [phone] Reason for Visit * Reason Onset Date Comments Billing Question 09/06/2018 Encounter Details Date Type Department Care Team (Late st Contact Info) Description 09/06/2018 Telephone [facility] Pediatric Genetics - [facility] [address] [place], [place] [id number] Karina Ruth, [address] [place], [place] [address] Billing Question Social History Tobacco Use Types Packs/Day Years Used Date Smoking Tobacco: Never Alcohol Use Standard Drinks/Week Comments No 0 (1 standard drink = 0.6 oz pur e alcohol) Comments Unknown Sex and Gender Information Value Date Recorded Sex Assigned at Not on file Legal Sex Female 15:59 EDT Gender Identity Not on file Sexual Orientation Not on file documented as of this encounter Miscellaneous Notes * Telephone Encounter - RamilayMela MS - 09/06/2018 1550 EST I left a [...] and possibly for the blood draw. Mela French, * Telephone Encounter - Marcus Hahn. - [...] on filedocumented in this encounter Care Teams Improvement Auditor Relationship Specialty Start Date End Date Blayne Song APRN [address] [place] [address] [address] [place] [address] PCP - General 02/21/14 documented as of this encounter
--- OUTSIDE RECORDS SUMMARY | 2024-09-25 12:02 | XMS_ITS | Encounter Summary ---
Author Organization [facility] Address [facility] [place] [address] Care Team Providers Care Director Information Security Name Role Phone Malcolm Spring Primary Care Provider [phone] Reason for Visit * Reason Comments Routine Visit * Consultation (Routine) - Authorized Specialty Diagnoses / Procedures Referred By Huang salazar Referred To Contact Obstetrics and Gynecology Diagnoses Encounter for supervision of normal , antepartum, unspecified Supervision of resulting from assisted reproductive technology in second trimester Family history of Gzgewqk-Djclk-Ciwgy disease Detail Morph (06/29-07/13) and GC 21-HYDROXYLASE DEFICIENCY CARRIER Petra Meza CNM [address] [place] [address] [place] [address] [facility] Purchase Price Analyst [address] [place] [address] Referral ID Status Reason Start Date Expiration Date Visits Requested Visits Authorized [id number] Authorized Consult, Test & Treat PCP Updated and/or Approved 05/08/2024 05/08/2025 12 12 Encounter Details Date Type Department Care Team (Late st Contact Info) Description 06/29/2024 12:00 PM EDT Office Visit Obstetrics [place] [address] Vivek Lala MD [facility] [place] [address] Disease of nervous system affecting in second trimester Social History Tobacco Use [...] - - Body Mass Index - - documented in this encounter Progress Notes * Phu Blunt LPN - 06/29/2024 12:00 PM EDT ____ Patient not reached, will update meds, allergies, tobacco, pharmacy, pain/depression during visit. 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 See separate genetic counseling note from [facility]. Detailed morphology US is reassuring: Normal appearing, normally grown gates male with normal amniotic fluid volume and a normal appearing posterior placenta. Pt is known to have Jbcuhyj-Xqtdm-Wujip hereditary neuropathy and is currently asymptomatic. 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 Fortunately, her partner, the father of this fetus is negative for these genes. A/P: Likely normal . Pt declined diagnosis for Ssfikve-Vqnsm-Qcsxt. It is unlikely that Olya's asymptomatic Tfpxmcx-Ntaox-Ileut disease will impact her outcome. Recommend routine care. MD Shari 15 minutes was spent preparing for, performing and documenting this MFM consultation. 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
--- OUTSIDE RECORDS SUMMARY | 2024-09-25 12:02 | XMS_ITS | Clinical Summary ---
Author Organization [facility] Address [address] [place] [address] Care Team Providers Care Bail Agent Name Role Phone Blayne Song APRN Primary Care Provider Allergies No known active allergies Medications No [...] 19+ 3-dose series) 01/20/2011 COVID-19 Vaccine ( season) 2024 Hepatitis C Screen Completed 05/07/2024, 04/21/2022 Procedures Procedure Name Priority Date/Time Associated Diagnosis Comments HEPATITIS C AB W REFLEX TO HCV RNA BY PCR Today 05/07/2024 15:50 EDT from Last 3 Months or Most Recently Relevant to Health Maintenance Results * HEPATITIS C AB W REFLEX TO HCV RNA BY PCR (05/07/2024 15:50 EDT) Hep C Antibody Negative Negative 05/08/2024 19:05 EDT [facility] Blood VENOUS BLOOD / Unknown 05/07/2024 15:50 EDT 05/08/2024 17:11 EDT us Provider Outr Resulting Lab CHEMISTRY & BLOOD GA S ORDERABLES Final Result [facility] [address] [place], [place] [id number] from Last 3 Months or Most Recently Relevant to Health Maintenance Care Teams Bail Agent Relationship Specialty Start Date End Date Blayne Song APRN [address] [place] [address] [address] [place] [address] PCP - General 02/21/14
--- OUTSIDE RECORDS SUMMARY | 2024-09-25 12:02 | XMS_ITS | Encounter Summary ---
Author Organization [facility] Address [address] [place] [address] Care Team Providers Care After School Coordinator Name Role Phone Balyne Song APRN Primary Care Provider [phone] Encounter Details Date Type Department Care Team (Late st Contact Info) Description 04/22/2022 Lab Requisition [facility] Pathology & Laboratory Medicine - [facility] [address] [place] [address] Outr Resulting Lab, Provider Social History Tobacco [...] HEPATITIS B SURFACE ANTIBODY (04/21/2022 15:00 EDT) Pathologist [facility] Hep B Surface Ab, Quantitative <3.1 See Note mIU/mL 04/23/2022 8:50 EDT [facility] Comment: Reference Range for Hep B Surface Ab, Quant: Positive: >= 10.0 mIU/mL Negative: ??< 10.0 mIU/mL Patient is presumed to not be immune to infection with Hepatitis B Virus. Hep B Surface Ab, Qualitative Negative See Note 04/23/2022 8:50 EDT [facility] Comment: Reference Range for Hep B Surface Ab, Qual: Unvaccinated: ??Negative Vaccinated: ??Positive Blood VENOUS BLOOD / Unknown 04/21/2022 15:00 EDT 04/22/2022 17:37 EDT us Provider Outr Resulting Lab CHEMISTRY & BLOOD GA S ORDERABLES Final Result Performing Organization Address [facility] de Phone Number [facility] [address] [place] [address] * HEPATITIS C AB W REFLEX TO HCV RNA BY PCR (04/21/2022 15:00 EDT) [facility] Hep C Antibody Negative Negative 04/23/2022 9:35 EDT [facility] Blood VENOUS BLOOD / Unknown 04/21/2022 15:00 EDT 04/22/2022 17:37 EDT us Provider Outr Resulting Lab CHEMISTRY & BLOOD GA S ORDERABLES Final Result Performing Organization Address [facility] Co de Phone Number [facility] [address] [place] [address] * (ABNORMAL) HERPES SIMPLEX VIRUS (HSV) TYPE 1 & 2 AB, IGG (04/21/2022 15:00 EDT) [facility] HSV Type 1 Ab, IgG Negative Negative 04/28/2022 12:07 EDT [facility] Comment: No detectable antibodies to [...] Ab, IgG Positive(A) Negative 04/28/2022 12:07 EDT [facility] Comment:Indicates the presen ce of detectable IGG antibody to HSV 2 Blood VENOUS BLOOD / Unknown 04/21/2022 15:00 EDT 04/22/2022 17:22 EDT us Provider Outr Resulting Lab IMMUNOLOGY AND SEROL OGY ORDERABLES Final Result [facility] [address] [place] [address] documented in this encounter Visit Diagnoses Not on filedocumented in this encounter Care Teams After School Coordinator Relationship Specialty Start Date End Date Blayne Song APRN [address] [place] [address] [address] [place] [address] PCP - General 02/21/14 documented as of this encounter
--- OUTSIDE RECORDS SUMMARY | 2024-09-25 12:02 | XMS_ITS | Encounter Summary ---
Author Organization [facility] Address [address] [place] [address] Care Team Providers Care Travel Cota Name Role Phone Blayne Song APRN Primary Care Provider [phone] Reason for Visit * Reason Onset Date Comments Billing Question 09/11/2018 Encounter Details Date Type Department Care Team (Late st Contact Info) Description 09/11/2018 Telephone [facility] Pediatric Pulmonary - [facility] [address] [place], [place] [address] FarazKarina, MS [address] [place] [address] Billing Question Social History Tobacco Use Types [...] Hospital was free. The blood draw through [facility] was not included in that and she was charged $27. The other charge for approximately $125was probably for the genetic counseling visit which is usually covered under insurance. However, she may have not yet met her deductible and that is why she got the charge. I suggested she contact her insurance company to determine her deductible and also call patient financial services at [phone] and see if they could set up a payment plan. She called back and complained that she was never told to expect these charges and she was told everything was free. I again explained that the genetic testing through [facility] was free. However the blood draw [...] on filedocumented in this encounter Care Teams Travel Cota Relationship Specialty Start Date End Date Blayne Song APRN [address] [place] [address] [address] [place] [address] PCP - General 02/21/14 documented as of this encounter
--- OUTSIDE RECORDS SUMMARY | 2024-09-25 12:02 | XMS_ITS | Encounter Summary ---
Author Organization [facility] Address [address] [place] [address] Care Team Providers Care Rcis Name Role Phone Blayne Song APRN Primary Care Provider [phone] Reason for Visit * Reason Onset Date Comments Other 09/06/2018 Encounter Details Date Type Department Care Team (Late st Contact Info) Description 09/06/2018 Telephone [facility] Pediatric Genetics - [facility] [address] [place], [place] [address] Mela French, MS [address] [facility] [place] [address] Other Social History Tobacco Use Types Packs/Day [...] encounter Miscellaneous Notes * Telephone Encounter - Gillian Mela, MS - 09/06/2018 1601 EST Jessica called [...] on filedocumented in this encounter Care Teams Rcis Relationship Specialty Start Date End Date Blayne Song APRN [address] [place] [address] [address] [place] [address] PCP - General 02/21/14 documented as of this encounter
--- OUTSIDE RECORDS SUMMARY | 2024-09-25 12:02 | XMS_ITS | Encounter Summary ---
Author Organization [facility] Address [address] [place] [address] Care Team Providers Care Food Management Aide Name Role Phone Blayne Song APRN Primary Care Provider [phone] Encounter Details Date Type Department Care Team (Late st Contact Info) Description 05/08/2024 Lab Requisition [facility] Pathology & Laboratory Medicine - [facility] [address] [place] [address] Outr Resulting Lab, Provider Social History Tobacco [...] 15:50 EDT) Hold Hold 05/08/2024 18:15 EDT [facility] Blood VENOUS BLOOD / Unknown 05/07/2024 15:50 EDT 05/08/2024 17:12 EDT us Provider Outr Resulting Lab LAB INFO SERVICE AND SUPPORT & PHONE RESULT Final Result Performing Organization Address [facility] Co de Phone Number [facility] [address] [place] [address] * VARICELLA IGG ANTIBODY (05/07/2024 15:50 EDT) Varicella IgG Ab Negative See Note 05/09/2024 12:37 EDT [facility] Comment:Absence of detectabl e Varicella Zoster virus IgG antibodies. A negative result generally indicates no detectable antibody, but does not rule out acute infection. If VZV exposure is suspected, a second sample should be collected and tested no less than one or two weeks later. Blood VENOUS BLOOD / Unknown 05/07/2024 15:50 EDT 05/08/2024 17:12 EDT us Provider Outr Resulting Lab IMMUNOLOGY AND SEROL OGY ORDERABLES Final Result Performing Organization Address [facility] Co de Phone Number [facility] [address] [place] [address] * RUBELLA IGG ANTIBODY (05/07/2024 15:50 EDT) Rubella IgG Ab Positive See Note 05/09/2024 12:52 EDT [facility] Comment:Positive for IgG ant ibodies to Rubella virus. Blood VENOUS BLOOD / Unknown 05/07/2024 15:50 EDT 05/08/2024 17:12 EDT us Provider Outr Resulting Lab CHEMISTRY & BLOOD GA S ORDERABLES Final Result Performing Organization Address [facility] Co de Phone Number [facility] [address] [place] [address] documented in this encounter Visit Diagnoses Not on filedocumented in this encounter Care Teams Food Management Aide Relationship Specialty Start Date End Date Blayne Song APRN [address] [place] [address] PCP - General 02/21/14 documented as of this encounter
--- OUTSIDE RECORDS SUMMARY | 2024-09-25 12:02 | XMS_ITS | Encounter Summary ---
Author Organization [facility] Address [address] [place] [address] Care Team Providers Care Operator Supply Name Role Phone Blayne Song APRN Primary Care Provider [phone] Encounter Details Date Type Department Care Team (Late st Contact Info) Description 03/14/2024 Lab Requisition [facility] Pathology & Laboratory Medicine - [facility] [address] [place] [address] Outr Resulting Lab, Provider Social History Tobacco [...] 13.9 See Table ng/mL 03/14/2024 22:[address] [facility] Comment: Female Reference Ranges: [...] Unknown 03/14/2024 14:22 EDT 03/14/2024 21:37 EDT us Provider Outr Resulting Lab CHEMISTRY & BLOOD GA S ORDERABLES Final Result [facility] [address] [place] [address] documented in this encounter Visit Diagnoses Not on filedocumented in this encounter Care Teams Operator Supply Relationship Specialty Start Date End Date Blayne Song APRN [address] [place] [address] [address] [place] [address] PCP - General 02/21/14 documented as of this encounter
--- OUTSIDE RECORDS SUMMARY | 2024-09-25 12:02 | XMS_ITS | Encounter Summary ---
[place] [address] Care Team Providers Care Supervisor Floor Assembly Name Role Phone Malcolm Spring Primary Care Provider [phone] Reason for Referral * Diagnostic Test (Routine) - Closed Specialty Diagnoses / Procedures Referred By Huang t Referred To Contact Radiology Diagnoses Supervision of resulting from assisted reproductive technology in second trimester Peroneal muscular atrophy Procedures US OB Detailed Morphology [facility] [address] [place] [address] [place] [address] Referral ID Status Reason Start Date Expiration Date V isits Requested Visits Authorized [id number] Closed Specialty Service Requested 05/21/2024 11/21/2025 1 1 Reason for Visit * Diagnostic Test (Routine) - Closed Specialty Diagnoses / Procedures Referred By Contac t Referred To Contact Radiology Diagnoses Supervision of resulting from assisted reproductive technology in second trimester Peroneal muscular atrophy Procedures US OB Detailed Morphology Petra Meza CNM [address] [address] [place] [address] [facility] [place] [address] Referral ID Status Reason Start Date Expiration Date V isits Requested Visits Authorized [id number] Closed Specialty Service Requested 05/21/2024 11/21/2025 1 1 Encounter Details Date Type Department Care Team (Latest Contact Info) Description 06/29/2024 10:13 AM EDT - 06/29/2024 11:59 PM EDT Hospital [place] [address] Derrick Petra, JEANETTE [address] [place] [address] Supervision of resulting from assisted reproductive technology in second trimester; Peroneal muscular atrophy Discharge Disposition: Home Social History Tobacco Use Types Packs/Day Years Used Date Smoking Tobacco: Never Smokeless Tobacco: Never Estimated Date of Delivery Comme nts Yes 11/23/2024 Sex and Gender Information Value Date Recorded Sex Assigned at Not on file Gender Identity Not on file Sexual Orientation Not on file documented as of this encounter Medications at Time of Discharge Medication Sig Dispensed Refills Start Date End Date vitamin with dopcyxph-Yu-Atfz-FA Tablet Take by mouth. cranberry fruit extract (CRANBERRY CONCENTRATE ORAL) Take by mouth. aspirin EC 81 mg EC (DR) tablet Take 81 mg by mouth daily. documented as of this encounter Plan of Treatment Not on file documented as of this encounter Procedures Procedure Name Priority Date/Time Associated Diagnosis Comments US OB DETAILED MORPHOLOGY Routine 06/29/2024 11:53 AM EDT Supervision of resulting from assisted reproductive technology in second trimester Peroneal muscular atrophy documented in this encounter Results * US OB Detailed Morphology (06/29/2024 11:53 AM EDT) WORKSTATION ID [id number] 1 [facility] Anatomical Region Laterality Modality Pelvis, Abdomen Ultrasound [...] who have questions, please contact the health neurocritical care physician that requested your imaging first. ?Vivek Lala, Staff Physician Electronically Signed Final Report ?? 06/29/2024 12:05 pm Narrative 06/29/2024 12:05 PM EDT OBSTETRICS REPORT ?(Signed Final 06/29/2024 12:05 pm) PATIENT INFO: ID #: ? [id number] ?: ??[birth year] (34 yrs)(F) Name: ? OLYA COATS ? Visit Date: 06/29/2024 10:59 am PERFORMED BY: Performed By: ? Rhea Mays RDMS Attending: ?Dai CABALLERO, Vivek Peres Referred By: ?PETRA MEZA Location: ? [place] SERVICE(S) PROVIDED: [facility] - Detailed Morphology - [id number] ? [id number] INDICATIONS: 19 weeks gestation of ?Z3A.19 CHAROT MARIAN TOOTH; 21 HYDROXYLASA DEFICIENCY CARRIER VITAL SIGNS: Weight (lb): 232.0 Height: ?5'3 ? BMI: ? 41.09 EVALUATION: Num Of Fetuses: ? 1 Heart Rate(bpm): ??155 Cardiac Activity: ? Observed, normal rhythm Presentation: ? Cephalic Placenta: ? Posterior P. Cord Insertion: ?Within Normal Limits Amniotic Fluid ALIX FV: ?Subjectively normal for gestational age --------- [...] SVC: ? Visualized Interventr. Septum: ?Visualized Cardiac [place]: ?Visualized Diaphragm: ? Visualized 3 Vessel View: [...] 06/29/2024 12:05 pm) PATIENT INFO: ID #: [id number] : [id number] (34 yrs)(F) Name: OLYA COATS Visit Date: 06/29/2024 10:59 am PERFORMED BY: Performed By: Rhea Mays RDMS Attending: Vivek Lala MD Referred By: PETRA MEZA Location: [place] SERVICE(S) PROVIDED: [facility] - Detailed Morphology - [id number] INDICATIONS: 19 weeks gestation of Z3A.19 CHAROT [...] Visualized SVC: Visualized Interventr. Septum: Visualized Cardiac [place]: Visualized Diaphragm: Visualized 3 Vessel View: Visualized [...] who have questions, please contact the health neurocritical care physician that requested your imaging first. Vivek Lala, Staff Physician Electronically Signed Final Report 06/29/2024 12:05 pm [facility] documented in this encounter Visit Diagnoses Diagnosis Supervision of resulting from assisted reproductive technology in second trimester resulting from assisted reproductive technology Peroneal muscular atrophy documented in this encounter Care Teams Supervisor Floor Assembly Relationship Specialty Start Date End Date Malcolm Spring PA [address] [place] [address] PCP - General Internal Medicine 08/08/21 documented as of this encounter
--- OUTSIDE RECORDS SUMMARY | 2024-09-25 12:02 | XMS_ITS | Encounter Summary ---
Author Organization [facility] Address [address] [place] [address] Care Team Providers Care Binder Folder Operator Name Role Phone Blayne Song APRN Primary Care Provider [phone] Encounter Details Date Type Department Care Team (Late st Contact Info) Description 05/08/2024 Lab Requisition [facility] Pathology & Laboratory Medicine - [facility] [address] [place] [address] Outr Resulting Lab, Provider Social History Tobacco [...] 4th Generation Negative Negative 05/08/2024 19:07 EDT [facility] Comment:If acute HIV-1 infec tion is suspected in a high risk patient, submit plasma specimen for HIV-1 RNA quantitation test. Blood VENOUS BLOOD / Unknown 05/07/2024 15:50 EDT 05/08/2024 17:18 EDT Narrative [facility] - 05/08/2024 19:07 EDT Fourth Generation assay performed on the Siemens Centaur XPT. us Provider Outr Resulting Lab IMMUNOLOGY AND SEROL OGY ORDERABLES Final Result [facility] [address] [place] [address] documented in this encounter Visit Diagnoses Not on filedocumented in this encounter Care Teams Binder Folder Operator Relationship Specialty Start Date End Date Blayne Song APRN [address] [place] [address] [address] [place] [address] PCP - General 02/21/14 documented as of this encounter
--- OUTSIDE RECORDS SUMMARY | 2024-09-25 12:02 | XMS_ITS | Encounter Summary ---
[place] [address] Care Team Providers Care Communications Station Manager Name Role Phone Malcolm Spring Primary Care Provider [phone] Reason for Referral * Consultation (Routine) - Authorized Specialty Diagnoses / Procedures Referred By Huang salazar Referred To Contact Obstetrics and Gynecology Diagnoses Encounter for supervision of normal , antepartum, unspecified Supervision of resulting from assisted reproductive technology in second trimester Family history of Olbzapb-Hxhgu-Gxnso disease Detail Morph (06/29-07/13) and GC 21-HYDROXYLASE DEFICIENCY CARRIER Petra Meza CNM [address] [place] [address] [address] [place] [address] [facility] Parachute/Combatant Diver Officer [address] [place] [phone] Referral ID Status Reason Start Date Expiration Date Visits Requested Visits Authorized [id number] Authorized Consult, Test & Treat PCP Updated and/or Approved 05/08/2024 05/08/2025 12 12 Encounter Details Date Type Department Care Team (Late st Contact Info) Description 05/08/2024 Transcribe Orders eDH Incoming Referrals [phone] Petra Meza CNM [address] [place] [address] [address] [place], [place] [id number] Encounter for supervision of normal , antepartum, [...] technology documented in this encounter Care Teams Communications Station Manager Relationship Specialty Start Date End Date Malcolm Spring PA [address] [place] [address] PCP - General Internal Medicine 08/08/21 documented as of this encounter
--- OUTSIDE RECORDS SUMMARY | 2024-09-25 12:02 | XMS_ITS | Referral Summary ---
Author Organization [facility] Address [address] [place] [address] Care Team Providers Care Fountain Pen Turner Name Role Phone Blayne Song APRN Primary Care Provider [phone] Allergies No known active allergies Medications No [...] C Antibody Negative Negative 05/08/2024 19:05 EDT [facility] Blood VENOUS BLOOD / Unknown 05/07/2024 15:50 EDT 05/08/2024 17:11 EDT us Provider Outr Resulting Lab CHEMISTRY & BLOOD GA S ORDERABLES Final Result [facility] [address] [place] [address] from Last 3 Months or Most Recently Relevant to Health Maintenance Care Teams Fountain Pen Turner Relationship Specialty Start Date End Date Blayne Song APRN [address] [place] [address] [address] [place] [address] PCP - General 02/21/14
--- OUTSIDE RECORDS SUMMARY | 2024-09-25 12:02 | XMS_ITS | Encounter Summary ---
Author Organization [facility] Address [address] [place] [address] Care Team Providers Care Circulating Nurse Name Role Phone Blayne Song APRN Primary Care Provider [phone] Encounter Details Date Type Department Care Team (Late st Contact Info) Description 05/08/2024 Lab Requisition [facility] Pathology & Laboratory Medicine - [facility] [address] [place] [address] Outr Resulting Lab, Provider Social History Tobacco [...] 15:50 EDT) Hold Hold 05/08/2024 18:15 EDT [facility] Blood VENOUS BLOOD / Unknown 05/07/2024 15:50 EDT 05/08/2024 17:12 EDT us Provider Outr Resulting Lab LAB INFO SERVICE AND SUPPORT & PHONE RESULT Final Result [facility] [address] [place], [place] [address] * HEPATITIS B SURFACE ANTIGEN (05/07/2024 15:50 EDT) Pathologist [facility] Hep B Surface Ag Negative Negative 05/08/2024 18:34 EDT [facility] Blood VENOUS BLOOD / Unknown 05/07/2024 15:50 EDT 05/08/2024 17:11 EDT us Provider Outr Resulting Lab CHEMISTRY & BLOOD GA S ORDERABLES Final Result [facility] [address] [place] [address] * HEPATITIS C AB W REFLEX TO HCV RNA BY PCR (05/07/2024 15:50 EDT) [facility] Hep C Antibody Negative Negative 05/08/2024 19:05 EDT [facility] Blood VENOUS BLOOD / Unknown 05/07/2024 15:50 EDT 05/08/2024 17:11 EDT us Provider Outr Resulting Lab CHEMISTRY & BLOOD GA S ORDERABLES Final Result [facility] [address] [place] [address] documented in this encounter Visit Diagnoses Not on filedocumented in this encounter Care Teams Circulating Nurse Relationship Specialty Start Date End Date Blayne Song APRN [address] [place] [address] [address] [place] [address] PCP - General 02/21/14 documented as of this encounter
--- OUTSIDE RECORDS SUMMARY | 2024-09-25 12:02 | XMS_ITS | Encounter Summary ---
[place] [address] Care Team Providers Care Cooker Pie Filling Name Role Phone Malcolm Spring Primary Care Provider [phone] Encounter Details Date Type Department Care Team (Latest Contact Info) Description 06/29/2024 Travel Social History Tobacco Use Types Packs/Day Years [...] on filedocumented in this encounter Care Teams Cooker Pie Filling Relationship Specialty Start Date End Date Malcolm Spring PA [address] [place] [address] PCP - General Internal Medicine 08/08/21 documented as of this encounter
--- OUTSIDE RECORDS SUMMARY | 2024-09-25 12:02 | XMS_ITS | Encounter Summary ---
[place] [address] Care Team Providers Care Brand Advocate Name Role Phone Toño Owens MD, Kevin Primary Care Provider [phone] Encounter Details Date Type Department Care Team (Late st Contact Info) Description 08/06/2021 Telephone [place] [address] Bryanna Bush Social History Tobacco Use Types [...] placed to the Ds office and this teletypewriter installer was told the referral should be going to bariatric surgery. A detailed message was left for the patient to contact Gen Surg's department at [phone]. documented in this encounter Plan of Treatment Not on file documented as of this encounter Visit Diagnoses Not on filedocumented in this encounter Care Teams Brand Advocate Relationship Specialty Start Date End Date [place] [address] PCP - General 09/01/10 08/07/21 documented as of this encounter
--- OUTSIDE RECORDS SUMMARY | 2024-09-25 12:02 | XMS_ITS | Encounter Summary ---
Author Organization [facility] Address [address] [place] [address] Care Team Providers Care Nematologist Name Role Phone Blyane Song APRN Primary Care Provider [phone] Encounter Details Date Type Department Care Team (Late st Contact Info) Description 04/22/2022 Lab Requisition [facility] Pathology & Laboratory Medicine - [facility] [address] [place] [address] Outr Resulting Lab, Provider Social History Tobacco [...] 15:00 EDT) Hold Hold 04/22/2022 18:47 EDT [facility] Blood VENOUS BLOOD / Unknown 04/21/2022 15:00 EDT 04/22/2022 17:41 EDT us Provider Outr Resulting Lab LAB INFO SERVICE AND SUPPORT & PHONE RESULT Final Result Performing Organization Address [facility]/ZIP Co de Phone Number [facility] [address] [place] [address] * HIV 1/2 ANTIGEN AND ANTIBODY, 4TH GENERATION (04/21/2022 15:00 EDT) HIV 1 and 2 Antibody/p24 Antigen, 4th Generation Negative Negative 04/23/2022 9:56 EDT [facility] Comment:If acute HIV-1 infec tion is suspected in a high risk patient, submit plasma specimen for HIV-1 RNA quantitation test. Blood VENOUS BLOOD / Unknown 04/21/2022 15:00 EDT 04/22/2022 17:37 EDT Narrative [facility] - 04/23/2022 9:56 EDT Fourth Generation assay performed on the Siemens Centaur XPT. us Provider Outr Resulting Lab IMMUNOLOGY AND SEROL OGY ORDERABLES Final Result Performing Organization Address City/[facility]/ZIP Co de Phone Number [facility] [address] [place] [address] documented in this encounter Visit Diagnoses Not on filedocumented in this encounter Care Teams Nematologist Relationship Specialty Start Date End Date Blayne Song APRN [address] [place] [address] [address] [place], [place] [id number] PCP - General 02/21/14 documented as of this encounter
--- OUTSIDE RECORDS SUMMARY | 2024-09-25 12:02 | XMS_ITS | Encounter Summary ---
Author Organization [facility] Address [address] [place] [address] Care Team Providers Care Cake Puller Name Role Phone Blayne Song APRN Primary Care Provider [phone] Encounter Details Date Type Department Care Team (Late st Contact Info) Description 03/19/2024 Lab Requisition [facility] Pathology & Laboratory Medicine - [facility] [address] [place] [address] Outr Resulting Lab, Provider Social History Tobacco [...] 17.3 See Table ng/mL 03/19/2024 22:43 EDT [facility] Comment: Female Reference Ranges: [...] Unknown 03/19/2024 8:37 EDT 03/19/2024 22:07 EDT us Provider Outr Resulting Lab CHEMISTRY & BLOOD GA S ORDERABLES Final Result [facility] [address] [place] [address] documented in this encounter Visit Diagnoses Not on filedocumented in this encounter Care Teams Cake Puller Relationship Specialty Start Date End Date Blayne Song APRN [address] [place] [address] [address] [place] [address] PCP - General 02/21/14 documented as of this encounter
--- OUTSIDE RECORDS SUMMARY | 2024-09-25 12:03 | XMS_ITS | Encounter Summary ---
Author Organization [facility] Address [address] [place] [address] Care Team Providers Care Electric Meter Technician Name Role Phone Brianna Vieyra APRN Primary Care Provider [phone] Reason for Referral * Consult (Routine) - Closed Specialty Diagnoses / Procedures Referred By Contac t Referred To Contact Neurology Diagnoses Panchito Saldivar MD Phone: tel: fax: [facility] Adult Neurology - [address] [address] Phone: tel: fax: Referral ID Status Reason Start Date Expiration Date V isits Requested Visits Authorized [id number] Closed Specialty Services Required 02/21/2014 1 1 [...] 15:59 EDT - 02/21/2014 20:26 EDT Emergency [facility] Emergency Department - Main [address] [address] Panchito Lucero MD [address] [place] [address], Level 1 [place] [address] Emergency, MD Devika [place]kins (Primary Dx) Discharge [...] w; her. * Elgin Balderas - 02/21/2014 1845 EDT Blood drawn via saline lock per [...] Recent head injury: No recent head injuries FLAGGER treatment: None History of seizures: no Review [...] progress: stable Final diagnoses: Spells PCP: BRIANNA VIEYRA 02/23/2014 7:27 documented in this encounter Plan [...] type is urine. Methadone Screen Negative screen. [facility] Comment: Confirmation [...] type is urine. Oxycodone Screen Negative screen. [facility] Comment: Confirmation testing available upon request. Suitable for medical purposes only. Will not detect all drugs within class. Cutoff = 300 ng/ml Specimen type is urine. Cocaine Metabolites Negative screen. [facility] Comment: Confirmation testing available upon request. Suitable for medical purposes only. Will not detect all drugs within class. Cutoff = 300 ng/ml Specimen type is urine. Urine specimen (specimen) URINE / Unknown 02/21/2014 19:24 EDT 02/21/2014 19:31 EDT Panchito Lucero MD GEN LAB UNIT COLLECT ORDERABL ES Final Result [facility] [address] [place] [address] * POCT URINE TEST (02/21/2014 18:37 EDT) Test, Urine, POC Negative Reference Range, Negative Control Line Present Yes Background Clear? Yes Urine specimen (specimen) 02/21/2014 18:37 EDT Panchito Lucero MD POINT OF CARE TEST ORDERABLES Final Result * CT HEAD WO CONTRAST (02/21/2014 18:32 [...] 02/21/14. Panchito Lucero MD IMG CT ORDERABLES Final Resul t * DIFFERENTIAL (02/21/2014 18:23 EDT) % Neutrophils 55.8 45.5 - 79.7 % [facility] % Lymphocytes 30.8 15.0 - 46.8 % [facility] % Monocytes 10.3 1.8 - 12.0 % [facility] % Eosinophils 2.5 0.6 - 6.9 % [facility] % Basophils 0.6 0.2 - 1.4 [...] [facility] Type of Diff: Automated [facility] 02/21/2014 18:2 3 EDT 02/21/2014 18:46 EDT Panchito Lucero MD HEMATOLOGY & PF4 ORDERABLES F inal Result [facility] [address] [place] [address] * HEMAGRAM (02/21/2014 18:23 EDT) WBC 6.89 4.0 - 12.4 K/cmm [facility] RBC 4.30 3.86 - 5.04 M/cmm [facility] Hemoglobin 13.0 11.6 - 15.2 gm/dl [facility] HCT 38.4 34.9 - 44.4 % [facility] MCV 89 81 - 98 fl [facility] MCH 30.3 26.7 - 33.3 pg [facility] MCHC 34.0 32.1 - 35.9 gm/dl [facility] PLT 180 141 - 320 K/cmm [facility] RDW-CV 12.7 11.7 - 14.6 % [facility] 02/21/2014 18:2 3 EDT 02/21/2014 18:46 EDT Panchito Lucero MD HEMATOLOGY & PF4 ORDERABLES F inal Result Performing Organization Address [facility] Co de Phone Number [facility] [address] [place] [address] * CREATININE (02/21/2014 18:23 EDT) Creatinine 0.61 0.52 - 1.04 mg/dl [facility] GFR, Calculated >60 >60 ml/min/1.7 3m2 [facility] Blood specimen (specimen) 02/21/2014 18:23 EDT 02/21/2014 18:46 EDT Panchito Lucero MD CHEMISTRY & BLOOD GAS ORDERAB LES Final Result Performing Organization Address [facility] de Phone Number [facility] [address] [place] [address] * (ABNORMAL) BUN (02/21/2014 18:23 EDT) BUN <3(L) 10 - 26 mg/dl [facility] Blood specimen (specimen) 02/21/2014 18:23 EDT 02/21/2014 18:46 EDT Panchito Lucero MD CHEMISTRY & BLOOD GAS ORDERAB LES Final Result Performing Organization Address [facility] Co de Phone Number [facility] [address] [place] [address] * ELECTROLYTES (02/21/2014 18:23 EDT) Sodium 141 136 - 145 mEq/L [facility] Potassium 4.1 3.5 - 5.0 mEq/L [facility] Chloride 102 96 - 110 mEq/L [facility] CO2 28 24 - 32 mEq/L [facility] Blood specimen (specimen) 02/21/2014 18:23 EDT 02/21/2014 18:46 EDT Panchito Lucero MD CHEMISTRY & BLOOD GAS ORDERAB LES Final Result Performing Organization Address [facility] Co de Phone Number [facility] [address] [place] [address] * SCREENING GLUCOSE (02/21/2014 18:23 EDT) Glucose, Screening 100 70 - 100 mg/dl [facility] Blood specimen (specimen) 02/21/2014 18:23 EDT 02/21/2014 18:46 EDT Panchito Lucero MD CHEMISTRY & BLOOD GAS ORDERAB LES Final Result Performing Organization Address [facility] de Phone Number [facility] [address] [place] [address] * (ABNORMAL) POCT URINE DIPSTICK (02/21/2014 17:01 EDT) Color YELLOW [facility] Clarity, UA Clear [facility] Glucose Neg Neg [facility] Bilirubin Neg Neg [facility] Ketones Neg Neg [facility] Specific [place] 1.010 1.001 - 1.035 [facility] Blood Trace(A) Neg [facility] pH 7.0 4.6 - 8.0 [facility] Protein Neg Neg [facility] Urobilinogen 0.2 0.2 - 1.0 E.U./dl [facility] Nitrite Neg Neg [facility] Leuk Esterase Neg Neg [facility] professional development director ID [id number] [facility] Comment:Test performed at Em ergency Department Urine specimen (specimen) 02/21/2014 17:01 EDT 02/21/2014 17:12 EDT Panchito Lucero MD POINT OF CARE TEST ORDERABLES Final Result [facility] [address] [place] [address] documented in this encounter Visit Diagnoses Diagnosis Spells- Primary Other convulsions documented in this encounter Orders Nursing Count Last Ordered Date First Orde red Date PULSE OXIMETRY 1 02/21/2014 documented in this encounter Care Teams Electric Meter Technician Relationship Specialty Start Date End Date Brianna Vieyra APRN [address] [address] [address] [place], [place] [address] PCP - General 02/21/14 documented as of this encounter
--- OUTSIDE RECORDS SUMMARY | 2024-09-25 12:03 | XMS_ITS | Encounter Summary ---
Author Organization [facility] Address [address] [place] [address] Care Team Providers Care Group Social Worker Name Role Phone Blayne Song APRN Primary Care Provider [phone] Encounter Details Date Type Department Care Team (Late st Contact Info) Description 06/13/2018 Orders Only [facility] Pediatric Genetics - Main [place] [address] [place], [place] [address] Karina Ruth, MS [address] [place], [place] [address] Family history of Gtccnqc-Vvzgt-Qelmt disease (Primary Dx) Social History Tobacco Use [...] this encounter Results * MISCELLANEOUS TEST, NON DIA (06/13/2018 16:19 EDT) Test Name TESTING FOR KNOWN FAMILIAL GENETIC MUTATION IN MPZ GENE, C.314C>T, AT [facility], 3 06/13/2018 16:11 EDT [facility] Comment:5 ML EDTA PURPLE TOP , ROOM TEMP Result LAB ORDER CORRECTION 06/13/2018 16:46 EDT [facility] Comment:ORDERED SHIP1 Date Sample Shipped 06/13/18 06/13/2018 16:31 EDT [facility] Specimen of unknown material (specimen) TOPOGRAPHY UNKNOWN / Unknown 06/13/2018 16:19 EDT 06/13/2018 16:30 EDT us Rere Pabon MD CHEMISTRY & BLOOD GAS AARON DURAN Final Result [facility] [address] [place] [address] documented in this encounter Visit Diagnoses Diagnosis Family history of Laqpflq-Dsgrj-Axcyq disease- Primary Family history of other neurological diseases documented in this encounter Care Teams Group Social Worker Relationship Specialty Start Date End Date Blayne Song APRN [address] [place] [address] [address] [place] [address] PCP - General 02/21/14 documented as of this encounter
--- OUTSIDE RECORDS SUMMARY | 2024-09-25 12:03 | XMS_ITS | Encounter Summary ---
Author Organization [facility] Address [address] [place] [address] Care Team Providers Care Insurance Sales Representative Name Role Phone Blayne Song APRN Primary Care Provider [phone] Encounter Details Date Type Department Care Team (Late st Contact Info) Description 06/13/2018 Phlebotomy Only [facility] - [address] [address] Assistant To The President, Outpatient Family history of Fgniyuv-Gmgzi-Efppq disease (Primary Dx) Social History Tobacco Use [...] Date/Time Associated Diagnosis Comments MISCELLANEOUS TEST, NON APOLLO Routine 06/13/2018 16:19 EDT Family history of Glhlbmr-Itpqg-Qomi h disease documented in this encounter Results * MISCELLANEOUS TEST, NON DIA (06/13/2018 16:19 EDT) Test Name TESTING FOR KNOWN FAMILIAL GENETIC MUTATION IN MPZ GENE, C.314C>T, AT [facility], 3 06/13/2018 16:11 EDT [facility] Comment:5 ML EDTA PURPLE TOP , ROOM TEMP Result LAB ORDER CORRECTION 06/13/2018 16:46 EDT [facility] Comment:ORDERED SHIP1 Date Sample Shipped 06/13/18 06/13/2018 16:31 EDT [facility] Specimen of unknown material (specimen) TOPOGRAPHY UNKNOWN / Unknown 06/13/2018 16:19 EDT 06/13/2018 16:30 EDT us Rere Pabon MD CHEMISTRY & BLOOD GAS AARON DURAN Final Result [facility] [address] [place] [address] documented in this encounter Visit Diagnoses Diagnosis Family history of Ppznztc-Pbbaf-Lhgul disease- Primary Family history of other neurological diseases documented in this encounter Care Teams Insurance Sales Representative Relationship Specialty Start Date End Date Blyane Song APRN [address] [place] [address] [address] [place] [address] PCP - General 02/21/14 documented as of this encounter
--- OUTSIDE RECORDS SUMMARY | 2024-09-25 12:03 | XMS_ITS | Encounter Summary ---
Author Organization [facility] Address [address] [place] [address] Care Team Providers Care Spa Host Name Role Phone Duncan Blayne Molina APRN Primary Care Provider [phone] Encounter Details Date Type Department Care Team (Late st Contact Info) Description 06/13/2018 12:28 EDT - 06/13/2018 23:59 EDT Hospital Encounter [address] [address] Rere Pabon MD [address] [place] [phone] Discharge Disposition: Home or Self Care Social [...] (07/27/2018 15:29 EDT) 07/27/2018 15:2 9 EDT us Scan 2 Claim Manager LAB INFO SERVICE AND SUPPOR T & PHONE RESULT Final Result documented in this encounter Visit Diagnoses Not on filedocumented in this encounter Care Teams Spa Host Relationship Specialty Start Date End Date Blayne Song APRN [address] [place] [address] [address] [place] [address] PCP - General 02/21/14 documented as of this encounter
--- OUTSIDE RECORDS SUMMARY | 2024-09-25 12:03 | XMS_ITS | Encounter Summary ---
Author Organization [facility] Address [address] [place] [address] Care Team Providers Care Software Support Analyst Name Role Phone Blayne Song APRN Primary Care Provider [phone] Reason for Visit * Reason Comments Family History Of Genetic Disease [place] t [place] Disease Encounter Details Date Type Department Care Team (Late st Contact Info) Description 06/13/2018 15:00 EDT Office Visit [facility] Clinical Genetics [address] [address] Faraz Karina, MS [address] [place], [place] [address] Family history of genetic disease (Primary Dx); [...] Ruth, MS - 06/13/2018 1500 EDT [facility] GENETICS CONSULTATION Encounter Date: 06/13/2018 Olya Trujillo 1990 [id number] Blayne Song Olya Trujillo is a 28 [...] paternal grandfather has COPD. Jessica is of Frisian Mong[place]ian and Mixed ancestry . There is no known consanguinity. PAST MEDICAL HISTORY: Olya has generally been in good health. She has a history of frequent urinary tract infections.She does not think she has any symptoms of CMT however, she feels like she has less balance than before. 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 We discussed the pros and cons of [...] [place] Genetic Counselor Rere Pabon MD Clinical Account Financial Manager documented in this encounter Plan of Treatment Not on file documented as of this encounter Visit Diagnoses Diagnosis Family history of genetic disease- Primary Family history of other condition History of genetic counseling Genetic testing Other investigation and testing for procreative management documented in this encounter Care Teams Software Support Analyst Relationship Specialty Start Date End Date Blayne Song APRN [address] [place] [address] [address] [place] [address] PCP - General 02/21/14 documented as of this encounter
--- OUTSIDE RECORDS SUMMARY | 2024-09-25 12:03 | XMS_ITS | Encounter Summary ---
Author Organization [facility] Address [address] [place] [address] Care Team Providers Care Building Maintenance Engineer Name Role Phone Blayne Song APRN Primary Care Provider [phone] Reason for Visit * Reason Onset Date Comments Results 06/27/2018 Encounter Details Date Type Department Care Team (Late st Contact Info) Description 06/27/2018 Telephone [facility] Pediatric Genetics - [facility] [address] [place], [place] [phone] Karina Ruth MS [address] [place], [place] [id number] Results Social History Tobacco Use Types Packs/Day [...] Notes * Telephone Encounter - Rodo Ruth, [place] - 06/27/2018 0959 EDT Gave Olya her [...] on filedocumented in this encounter Care Teams Building Maintenance Engineer Relationship Specialty Start Date End Date Blayne Song APRN [address] [place] [address] [address] [place] [address] PCP - General 02/21/14 documented as of this encounter
--- OUTSIDE RECORDS SUMMARY | 2024-09-25 12:03 | XMS_ITS | Encounter Summary ---
Author Organization [facility] Address [address] [place] [address] Care Team Providers Care Guide Winder Name Role Phone SongGeorgesheba Molina APRN Primary Care Provider [phone] Encounter Details Date Type Department Care Team (Late st Contact Info) Description 06/13/[address] [facility] Clinical Genetics - [place] [address] [place], [place] [phone] Rere Pabon MD [address] [place] [address] Social History Tobacco Use Types [...] TESTING IN MPZ GENE 06/13/2018 16:34 EDT [facility] Result See Pathology Scanned Report in PRISM. 07/28/2018 8:20 EDT [facility] Comment:Assayed at [employer], [place], [place] Ref Lab [facility] 06/13/2018 16:34 EDT [facility] Date Sample Shipped 06/13/18 06/13/2018 16:34 EDT [facility] TOPOGRAPHY UNKNOWN / Unknown 06/13/2018 16:19 EDT 06/13/2018 16:30 EDT us Rere Pabon MD LAB INFO SERVICE AND SUPPO RT & PHONE RESULT Final Result [facility] [address] [place] [address] documented in this encounter Visit Diagnoses Not on filedocumented in this encounter Care Teams Guide Winder Relationship Specialty Start Date End Date Blayne Song APRN [address] [place] [address] [address] [place] [address] PCP - General 02/21/14 documented as of this encounter
--- OUTSIDE RECORDS SUMMARY | 2024-09-25 12:03 | XMS_ITS | Encounter Summary ---
Author Organization [facility] Address [address] [place] [address] Care Team Providers Care Performance Architect Name Role Phone Blayne Song APRN Primary Care Provider [phone] Reason for Referral * Consult (Routine) - Closed Specialty Diagnoses / Procedures Referred By Huang salazar Referred To Contact Neurology Diagnoses Family history of genetic disease Genetic carrier Rere Pabon MD Phone: tel: fax: Alexis Arcos MD Phone: tel: fax: Referral ID Status Reason Start Date Expiration Date V isits Requested Visits Authorized [id number] Closed Specialty Services Required 06/28/2018 1 1 Question Answer Reason for Request: 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 Wants to discuss care. Encounter Details Date Type Department Care Team (Late st Contact Info) Description 06/28/2018 Orders Only [facility] Pediatric Genetics - [facility] [address] [place], [place] [address] Karina Ruth, [place] [address] [facility] [place] [address] Family history of genetic disease (Primary Dx); [...] status documented in this encounter Care Teams Performance Architect Relationship Specialty Start Date End Date Blayne Song APRN [address] [place] [address] [address] [place] [address] PCP - General 02/21/14 documented as of this encounter
[2024-09-25 12:51] VITALS: BP 119/78; PULSE 84
--- NOTE | 2024-09-25 15:21 | W.OBNST ---
Date of service: 09/25/24 Time of Service: 15:21 NST Evaluation Reason for NST Reasons for Nonstress Test: DECREASED MOVEMENT Gestational Age Gestational Age in Weeks and Days: 31 Weeks and 4Days Test and Monitor Explained Test/Monitor Explained: Test Explained, Monitor Explained and Patient Verbalized Understanding Vital Signs Blood Pressure: 119/78 Pulse: 84 NST Information Date on Monitor: 09/25/24 Time on Monitor: 12:10 Date off Monitor: 09/25/24 Time off Monitor: 13:50 Total Time on Monitor: 100 NST Interventions: Reposition Patient NST Evaluation Patient States Movement: Present FHR Baseline: 125 Variability: Moderate 6-25 bpm Accelerations: 15x15 Decelerations: None NST Results: Reactive Note Ultrasound Done: N/A. NST Note Note: Olya reports less movement than usual today. She is feeling movement but it is not as strong. The baby;s movements were audible during prolonged NST and the monitor was repossitioned several times for continuous tracing. Reactive NST. kick counting discussed, NST Reviewed and Verified by: Petra Meza
[2024-09-25 15:23] VITALS: BP 119/78; PULSE 84
== END 2024-09-25 13:55 | disposition home health service (06) ==
LOC: BCD 12:01 → OBS 12:21
PROVIDERS: PCP Physician Assistant; Visit Provider Advanced Practice Midwife
DX: O36.8130 Decreased fetal movements, third trimester, not applicable or unspecified (principal); Z3A.31 31 weeks gestation of pregnancy
CPT/HCPCS: 59025

== ENCOUNTER 2024-10-04 16:29 | Outpatient (CLI) | payer MEDICAID, SELFPAY ==
[2024-10-04 15:35] LABS: Hemoglobin A1C 5.2 % (<5.7)
--- OUTSIDE RECORDS SUMMARY | 2024-10-04 16:31 | XMS_ITS | Encounter Summary ---
Author Organization [facility] Address [address] [place] [address] Care Team Providers Care Repairing Calibrator Name Role Phone Blayne Song APRN Primary Care Provider [phone] Encounter Details Date Type Department Care Team (Late st Contact Info) Description 03/19/2024 Lab Requisition [facility] Pathology & Laboratory Medicine - [facility] [address] [place] [address] Outr Resulting Lab, Provider Social History Tobacco [...] 17.3 See Table ng/mL 03/19/2024 22:43 EDT [facility] Comment: Female Reference Ranges: PHYSIOLOGICAL [...] & BLOOD GA S ORDERABLES Final Result [facility] [address] [place] [address] documented in this encounter Visit Diagnoses Not on filedocumented in this encounter Care Teams Repairing Calibrator Relationship Specialty Start Date End Date Blayne Song APRN [address] [place] [address] [address] [place] [address] PCP - General 02/21/14 documented as of this encounter
--- OUTSIDE RECORDS SUMMARY | 2024-10-04 16:31 | XMS_ITS | Encounter Summary ---
Author Organization [facility] Address [address] [place] [address] Care Team Providers Care Floor Worker Name Role Phone Blayne Song APRN Primary Care Provider [phone] Encounter Details Date Type Department Care Team (Late st Contact Info) Description 06/06/2024 Lab Requisition [facility] Pathology & Laboratory Medicine - [facility] [address] [place] [address] Outr Resulting Lab, Provider Social History Tobacco [...] gonorrhoeae Result Negative Negative 06/07/2024 13:15 EDT [facility] Chlamydia trachomatis Result Negative Negative 06/07/2024 13:15 EDT [facility] Swab VAGINAL STRUCTURE / Unknown 06/05/2024 16:00 EDT 06/06/2024 22:01 EDT us Provider Outr Resulting Lab MICROBIOLOGY - GENER AL ORDERABLES Final Result [facility] [address] [place], [place] [id number] documented in this encounter Visit Diagnoses Not on filedocumented in this encounter Care Teams Floor Worker Relationship Specialty Start Date End Date Blayne Song APRN [address] [place] [address] [address] [place], [place] [address] PCP - General 02/21/14 documented as of this encounter
--- OUTSIDE RECORDS SUMMARY | 2024-10-04 16:31 | XMS_ITS | Encounter Summary ---
Author Organization [facility] Address [address] [place] [address] Care Team Providers Care Brusher Hand Name Role Phone Blayne Song APRN Primary Care Provider [phone] Encounter Details Date Type Department Care Team (Late st Contact Info) Description 04/22/2022 Lab Requisition [facility] Pathology & Laboratory Medicine - [facility] [address] [place] [address] Outr Resulting Lab, Provider Social History Tobacco [...] 15:00 EDT) Hold Hold 04/22/2022 18:47 EDT [facility] Blood VENOUS BLOOD / Unknown 04/21/2022 15:00 EDT 04/22/2022 17:41 EDT us Provider Outr Resulting Lab LAB INFO SERVICE AND SUPPORT & PHONE RESULT Final Result Performing Organization Address [facility]/ZIP Co de Phone Number [facility] [address] [place] [address] * HIV 1/2 ANTIGEN AND ANTIBODY, 4TH GENERATION (04/21/2022 15:00 EDT) HIV 1 and 2 Antibody/p24 Antigen, 4th Generation Negative Negative 04/23/2022 9:56 EDT [facility] Comment:If acute HIV-1 infec tion is suspected in a high risk patient, submit plasma specimen for HIV-1 RNA quantitation test. Blood VENOUS BLOOD / Unknown 04/21/2022 15:00 EDT 04/22/2022 17:37 EDT Narrative [facility] - 04/23/2022 9:56 EDT Fourth Generation assay performed on the Siemens Centaur XPT. us Provider Outr Resulting Lab IMMUNOLOGY AND SEROL OGY ORDERABLES Final Result Performing Organization Address City/[facility]/ZIP Co de Phone Number [facility] [address] [place] [address] documented in this encounter Visit Diagnoses Not on filedocumented in this encounter Care Teams Brusher Hand Relationship Specialty Start Date End Date Blayne Song APRN [address] [place] [address] [address] [place], [place] [id number] PCP - General 02/21/14 documented as of this encounter
--- OUTSIDE RECORDS SUMMARY | 2024-10-04 16:31 | XMS_ITS | Encounter Summary ---
Author Organization [facility] Address [address] [place] [address] Care Team Providers Care Controlled Atmospheric Furnace Brazer Name Role Phone Blayne Song APRN Primary Care Provider [phone] Encounter Details Date Type Department Care Team (Late st Contact Info) Description 05/08/2024 Lab Requisition [facility] Pathology & Laboratory Medicine - [facility] [address] [place] [address] Outr Resulting Lab, Provider Social History Tobacco [...] 15:50 EDT) Hold Hold 05/08/2024 18:15 EDT [facility] Blood VENOUS BLOOD / Unknown 05/07/2024 15:50 EDT 05/08/2024 17:12 EDT us Provider Outr Resulting Lab LAB INFO SERVICE AND SUPPORT & PHONE RESULT Final Result Performing Organization Address [facility] Co de Phone Number [facility] [address] [place] [address] * VARICELLA IGG ANTIBODY (05/07/2024 15:50 EDT) Varicella IgG Ab Negative See Note 05/09/2024 12:37 EDT [facility] Comment:Absence of detectabl e [...] OGY ORDERABLES Final Result Performing Organization Address [facility] Co de Phone Number [facility] [address] [place] [address] * RUBELLA IGG ANTIBODY (05/07/2024 15:50 EDT) Rubella IgG Ab Positive See Note 05/09/2024 12:52 EDT [facility] Comment:Positive for IgG ant ibodies to Rubella virus. Blood VENOUS BLOOD / Unknown 05/07/2024 15:50 EDT 05/08/2024 17:12 EDT us Provider Outr Resulting Lab CHEMISTRY & BLOOD GA S ORDERABLES Final Result Performing Organization Address [facility] Co de Phone Number [facility] [address] [place] [address] documented in this encounter Visit Diagnoses Not on filedocumented in this encounter Care Teams Controlled Atmospheric Furnace Brazer Relationship Specialty Start Date End Date Blayne Song APRN [address] [facility] [address] [place] [address] PCP - General 02/21/14 documented as of this encounter
--- OUTSIDE RECORDS SUMMARY | 2024-10-04 16:31 | XMS_ITS | Clinical Summary ---
Author Organization [facility] Address [facility] [place] [address] Care Team Providers Care Fruit Thinner Machine Operator Name Role Phone Malcolm Spring Primary Care Provider [phone] Allergies Active Allergy Reactions Criticality Noted Date Comments Sulfa (Sulfonamide Antibiotics) Other (See Comments) 06/14/2024 Flu like symptoms Medications Medication Sig Dispensed Refills Start Date End Date Status vitamin with ueejettl-Jo-Afdq-FA Tablet Take by mouth. Active cranberry fruit extract (CRANBERRY CONCENTRATE ORAL) Take by mouth. Active aspirin EC 81 mg EC (DR) tablet Take 81 mg by mouth daily. Active Social History Tobacco Use Types Packs/Day Years [...] PAP Smear 01/20/2022 Covid-19 Vaccine ( - 2023- season) 2024 Influenza (Flu) vaccine (1 o f 1 - Influenza standard series) 06/10/2024 RSV Vaccine (1 - Risk 1-dose series) 09/28/20 24 Care Teams Fruit Thinner Machine Operator Relationship Specialty Start Date End Date Malcolm Spring PA [address] [place] [address] PCP - General Internal Medicine 08/08/21
--- OUTSIDE RECORDS SUMMARY | 2024-10-04 16:31 | XMS_ITS | Clinical Summary ---
Author Organization [facility] Address [address] [place] [address] Care Team Providers Care Medical Imaging Tech Name Role Phone Blayne Song APRN Primary Care Provider [phone] Allergies No known active allergies Medications No [...] C Antibody Negative Negative 05/08/2024 19:05 EDT [facility] Blood VENOUS BLOOD / Unknown 05/07/2024 15:50 EDT 05/08/2024 17:11 EDT us Provider Outr Resulting Lab CHEMISTRY & BLOOD GA S ORDERABLES Final Result [facility] [address] [place], [place] [id number] from Last 3 Months or Most Recently Relevant to Health Maintenance Care Teams Medical Imaging Tech Relationship Specialty Start Date End Date Blayne Song APRN [address] [place] [address] [address] [place] [address] PCP - General 02/21/14
--- OUTSIDE RECORDS SUMMARY | 2024-10-04 16:31 | XMS_ITS | Encounter Summary ---
Author Organization [facility] Address [address] [place] [address] Care Team Providers Care Smoke Eater Name Role Phone Blayne Song APRN Primary Care Provider [phone] Encounter Details Date Type Department Care Team (Late st Contact Info) Description 05/08/2024 Lab Requisition [facility] Pathology & Laboratory Medicine - [facility] [address] [place] [address] Outr Resulting Lab, Provider Social History Tobacco [...] 15:50 EDT) Hold Hold 05/08/2024 18:15 EDT [facility] Blood VENOUS BLOOD / Unknown 05/07/2024 15:50 EDT 05/08/2024 17:12 EDT us Provider Outr Resulting Lab LAB INFO SERVICE AND SUPPORT & PHONE RESULT Final Result [facility] [address] [place], [place] [id number] * HEPATITIS B SURFACE ANTIGEN (05/07/2024 15:50 EDT) Pathologist [facility] Hep B Surface Ag Negative Negative 05/08/2024 18:34 EDT [facility] Blood VENOUS BLOOD / Unknown 05/07/2024 15:50 EDT 05/08/2024 17:11 EDT us Provider Outr Resulting Lab CHEMISTRY & BLOOD GA S ORDERABLES Final Result [facility] [address] [place] [address] * HEPATITIS C AB W REFLEX TO HCV RNA BY PCR (05/07/2024 15:50 EDT) [facility] Hep C Antibody Negative Negative 05/08/2024 19:05 EDT [facility] Blood VENOUS BLOOD / Unknown 05/07/2024 15:50 EDT 05/08/2024 17:11 EDT us Provider Outr Resulting Lab CHEMISTRY & BLOOD GA S ORDERABLES Final Result [facility] [address] [place] [address] documented in this encounter Visit Diagnoses Not on filedocumented in this encounter Care Teams Smoke Eater Relationship Specialty Start Date End Date Blayne Song APRN [address] [place] [address] [address] [place] [address] PCP - General 02/21/14 documented as of this encounter
--- OUTSIDE RECORDS SUMMARY | 2024-10-04 16:31 | XMS_ITS | Encounter Summary ---
Author Organization [facility] Address [address] [place] [address] Care Team Providers Care Aerobics Instructor Name Role Phone Blayne Song APRN Primary Care Provider [phone] Reason for Visit * Reason Onset Date Comments Results 06/27/2018 Encounter Details Date Type Department Care Team (Late st Contact Info) Description 06/27/2018 Telephone [facility] Pediatric Genetics - [facility] [address] [place], [place] [id number] Karina Ruth MS [address] [place], [place] [phone] Results Social History Tobacco Use Types Packs/Day [...] on filedocumented in this encounter Care Teams Aerobics Instructor Relationship Specialty Start Date End Date Blayne Song APRN [address] [place] [address] [address] [place] [address] PCP - General 02/21/14 documented as of this encounter
--- OUTSIDE RECORDS SUMMARY | 2024-10-04 16:31 | XMS_ITS | Encounter Summary ---
Author Organization [facility] Address [address] [place] [address] Care Team Providers Care Automatic Corn Grinder Operator Name Role Phone Blayne Song APRN Primary Care Provider [phone] Encounter Details Date Type Department Care Team (Late st Contact Info) Description 01/13/2024 Lab Requisition [facility] Pathology & Laboratory Medicine - [facility] [address] [place] [address] Outr Resulting Lab, Provider Social History Tobacco [...] 12.5 See Table ng/mL 01/13/2024 22:02 EDT [facility] Comment: Female Reference Ranges: [...] & BLOOD GA S ORDERABLES Final Result [facility] [address] [place] [address] documented in this encounter Visit Diagnoses Not on filedocumented in this encounter Care Teams Automatic Corn Grinder Operator Relationship Specialty Start Date End Date Blayne Song APRN [address] [place] [address] [address] [place] [address] PCP - General 02/21/14 documented as of this encounter
--- OUTSIDE RECORDS SUMMARY | 2024-10-04 16:31 | XMS_ITS | Encounter Summary ---
Author Organization [facility] Address [address] [place] [address] Care Team Providers Care Multiple Punch Press Operator Name Role Phone Blayne Song APRN Primary Care Provider [phone] Encounter Details Date Type Department Care Team (Latest Contact Info) Description 01/05/2022 Lab Requisition [facility] Pathology & Laboratory Medicine - [facility] [address] [place] [address] Malcolm Spring, [facility] [address] [facility] JIM [address] [place] [address] Encounter for general adult medical examination without [...] System with Manual Evaluation 01/11/2022 13:03 EDT [facility] Specimen Adequacy Satisfactory for Evaluation - transformation zone component present Scant squamous epithelial component 01/11/2022 13:03 EDT [facility] General Categorization Negative for intraepithelial lesion or malignancy 01/11/2022 13:03 EDT [facility] Attestation . 01/11/2022 13:03 T [facility] at 1303 Clinical History See below 01/12/20 13:03 EDT [facility] Performing Lab [facility] 01/11/2022 13:03 EDT [facility] Scanned Images 01/11/2022 13:03 EDT [facility] Papanicolaou smear specimen (specimen) CERVIX UTERI STRUCTURE / Unknown 01/04/2022 14:58 EDT 01/06/2022 12:04 EDT Malcolm Spring [facility] PATHOLOGY ORDERABLES Cassandra l Result [facility] [address] [place] [address] * CHLAMYDIA/N. GONORRHOEAE AMPLIFIED RNA, THINPREP (01/04/2022 14:58 EDT) Neisseria gonorrhoeae Result Negative Negative 01/06/2022 14:56 EDT [facility] Chlamydia trachomatis Result Negative Negative 01/06/2022 14:56 EDT [facility] Papanicolaou smear specimen (specimen) CERVIX UTERI STRUCTURE / Unknown 01/04/2022 14:58 EDT 01/06/2022 7:41 EDT Malcolm Spring RPA MICROBIOLOGY - GENERAL OR DERABLES Final Result [facility] [address] [place] [address] documented in this encounter Visit Diagnoses Diagnosis Encounter for general adult medical examination without abnormal findings Unspecified general medical examination Encounter for screening for malignant neoplasm of cervix Screening for malignant neoplasm of the cervix Encounter for screening for human papillomavirus (HPV) Special screening examination for human papillomavirus (HPV) documented in this encounter Care Teams Multiple Punch Press Operator Relationship Specialty Start Date End Date Blayne Song APRN [address] [place] [address] [address] [place] [address] PCP - General 02/21/14 documented as of this encounter
--- OUTSIDE RECORDS SUMMARY | 2024-10-04 16:31 | XMS_ITS | Encounter Summary ---
Author Organization [facility] Address [address] [place] [address] Care Team Providers Care Women'S Studies Professor Name Role Phone Blayne Song APRN Primary Care Provider [phone] Reason for Visit * Reason Onset Date Comments Other 09/06/2018 Encounter Details Date Type Department Care Team (Late st Contact Info) Description 09/06/2018 Telephone [facility] Pediatric Genetics - [facility] [address] [place], [place] [address] Mela French, MS [address] [facility] [place] [address] Other Social History Tobacco Use Types Packs/Day [...] on filedocumented in this encounter Care Teams Women'S Studies Professor Relationship Specialty Start Date End Date Blayne Song APRN [address] [place] [address] [address] [place] [address] PCP - General 02/21/14 documented as of this encounter
--- OUTSIDE RECORDS SUMMARY | 2024-10-04 16:31 | XMS_ITS | Encounter Summary ---
Author Organization [facility] Address [address] [place] [address] Care Team Providers Care Crabber Name Role Phone Blayne Song APRN Primary Care Provider [phone] Encounter Details Date Type Department Care Team (Late st Contact Info) Description 03/14/2024 Lab Requisition [facility] Pathology & Laboratory Medicine - [facility] [address] [place] [address] Outr Resulting Lab, Provider Social History Tobacco [...] 13.9 See Table ng/mL 03/14/2024 22:40 EDT [facility] Comment: Female Reference Ranges: [...] & BLOOD GA S ORDERABLES Final Result [facility] [address] [place] [address] documented in this encounter Visit Diagnoses Not on filedocumented in this encounter Care Teams Crabber Relationship Specialty Start Date End Date Blayne Song APRN [address] [place] [address] [address] [place] [address] PCP - General 02/21/14 documented as of this encounter
--- OUTSIDE RECORDS SUMMARY | 2024-10-04 16:31 | XMS_ITS | Encounter Summary ---
Author Organization [facility] Address [facility] [place] [address] Care Team Providers Care Hospital Education Coordinator Name Role Phone Malcolm Spring Primary Care Provider [phone] Reason for Visit * Reason Comments Routine Visit * Consultation (Routine) - Authorized Specialty Diagnoses / Procedures Referred By Huang salazar Referred To Contact Obstetrics and Gynecology Diagnoses Encounter for supervision of normal , antepartum, unspecified Supervision of resulting from assisted reproductive technology in second trimester Family history of Kzhkpzm-Wjxub-Gyaeq disease Detail Morph (06/29-07/13) and GC 21-HYDROXYLASE DEFICIENCY CARRIER Petra Meza CNM [address] [place] [address] [place] [address] [facility] Nuclear Engineer [address] [place] [address] Referral ID Status Reason Start Date Expiration Date Visits Requested Visits Authorized [id number] Authorized Consult, Test & Treat PCP Updated and/or Approved 05/08/2024 05/08/2025 12 12 Encounter Details Date Type Department Care Team (Late st Contact Info) Description 06/29/2024 12:00 PM EDT Office Visit Obstetrics [place] [address] Vivek Lala MD [facility] [place] [address] Disease of nervous system affecting [...] not received required previsit questionnaires, send via [facility] Other information or concerns: Called at [phone] * Vivek Lala MD - 06/29/2024 12:00 PM EDT Asked by Petra Meza CNM to see this 34 yo at 19w0d with Ouyxqjl-Hmryv-Xvrkx disease,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 See separate genetic counseling note from [facility]. Detailed morphology US is reassuring: Normal appearing, normally grown gates male with normal amniotic fluid volume and a normal appearing posterior placenta. Pt is known to have Dbqlkrl-Qeczt-Uigwo hereditary neuropathy and is currently asymptomatic. 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 Fortunately, her partner, the father of this fetus is negative for these genes. A/P: Likely normal . Pt declined diagnosis for Bwoynmv-Msvdd-Rbuwc. It is unlikely that Olya's asymptomatic Tnizwjf-Ycshx-Reabq disease will impact her outcome. Recommend routine care. MD Shari 15 minutes was spent preparing for, performing and documenting this MFM consultation. FOB testing for 21-hydroxylase deficiency and myotonic congenita documented in this encounter Plan of Treatment Not on file documented as of this encounter Visit Diagnoses Diagnosis Disease of nervous system affecting in second trimester documented in this encounter Care Teams Hospital Education Coordinator Relationship Specialty Start Date End Date Malcolm Spring PA [address] [place] [address] PCP - General Internal Medicine 08/08/21 documented as of this encounter
--- OUTSIDE RECORDS SUMMARY | 2024-10-04 16:31 | XMS_ITS | Encounter Summary ---
Author Organization [facility] Address [address] [place] [address] Care Team Providers Care Quantitative Strategy Analyst Name Role Phone SongGeorgesheba Molina APRN Primary Care Provider [phone] Encounter Details Date Type Department Care Team (Late st Contact Info) Description 06/13/2018 Results Only [facility] Clinical Genetics - [place] [address] [place], [place] [id number] Rere Pabon MD [address] [place] [address] Social History Tobacco Use Types [...] TESTING IN MPZ GENE 06/13/2018 16:34 EDT [facility] Result See Pathology Scanned Report in PRISM. 07/28/2018 8:20 EDT [facility] Comment:Assayed at [employer] [facility] [employer], [place], [place] Ref Lab INVITAE 06/13/2018 16:34 EDT [facility] Date Sample Shipped 06/13/18 06/13/2018 16:34 EDT [facility] TOPOGRAPHY UNKNOWN / Unknown 06/13/2018 16:19 EDT 06/13/2018 16:30 EDT us Rere Pabon MD LAB INFO SERVICE AND SUPPO RT & PHONE RESULT Final Result [facility] [address] [place] [address] documented in this encounter Visit Diagnoses Not on filedocumented in this encounter Care Teams Quantitative Strategy Analyst Relationship Specialty Start Date End Date Blayne Song APRN [address] [place] [address] [address] [place] [address] PCP - General 02/21/14 documented as of this encounter
--- OUTSIDE RECORDS SUMMARY | 2024-10-04 16:31 | XMS_ITS | Encounter Summary ---
[place] [address] Care Team Providers Care Customer Pricing Manager Name Role Phone Malcolm Spring Primary Care Provider [phone] Reason for Referral * Diagnostic Test (Routine) - Closed Specialty Diagnoses / Procedures Referred By Huang t Referred To Contact Radiology Diagnoses Supervision of resulting from assisted reproductive technology in second trimester Peroneal muscular atrophy Procedures US OB Detailed Morphology [facility] [address] [place] [address] [place] [address] Referral ID Status Reason Start Date Expiration Date V isits Requested Visits Authorized [id number] Closed Specialty Service Requested 05/21/2024 11/21/2025 1 1 Reason for Visit * Diagnostic Test (Routine) - Closed Specialty Diagnoses / Procedures Referred By Contac t Referred To Contact Radiology Diagnoses Supervision of resulting from assisted reproductive technology in second trimester Peroneal muscular atrophy Procedures US OB Detailed Morphology Petra Meza CNM [address] [facility] [address] [place] [address] [facility] [place] [address] Referral ID Status Reason Start Date Expiration Date V isits Requested Visits Authorized [id number] Closed Specialty Service Requested 05/21/2024 11/21/2025 1 1 Encounter Details Date Type Department Care Team (Latest Contact Info) Description 06/29/2024 10:13 AM EDT - 06/29/2024 11:59 PM EDT Hospital [place] [address] Drerick Petra, JEANETTE [address] [place] [address] Supervision of resulting from assisted reproductive technology [...] Refills Start Date End Date vitamin with xvxyjdvm-Mz-Mhup-FA Tablet Take by mouth. cranberry fruit extract [...] Morphology (06/29/2024 11:53 AM EDT) WORKSTATION ID [id number] 1 [facility] [...] who have questions, please contact the health social worker palliative care that requested your imaging first. ?Vivek Lala, Staff Physician Electronically Signed Final Report ?? 06/29/2024 12:05 pm Narrative 06/29/2024 12:05 PM EDT OBSTETRICS REPORT ?(Signed Final 06/29/2024 12:05 pm) PATIENT INFO: ID #: ? [id number] ?: ??[id number] (34 yrs)(F) Name: ? OLYA COATS ? Visit Date: 06/29/2024 10:59 am PERFORMED BY: Performed By: ? Rhea Mays RDMS Attending: ?Dai CABALLERO, Vivek Peres Referred By: ?PETRA MEZA Location: ? [place] SERVICE(S) PROVIDED: [facility] - Detailed Morphology - [id number] ? [id number] INDICATIONS: 19 weeks gestation of ?Z3A.19 CHAROT [...] SVC: ? Visualized Interventr. Septum: ?Visualized Cardiac [place]: ?Visualized Diaphragm: ? Visualized 3 Vessel View: [...] 06/29/2024 12:05 pm) PATIENT INFO: ID #: [id number] : [id number] (34 yrs)(F) Name: OLYA COATS Visit Date: 06/29/2024 10:59 am PERFORMED BY: Performed By: Rhea Mays RDMS Attending: Vivek Lala MD Referred By: PETRA MEZA Location: [facility] SERVICE(S) PROVIDED: [facility] - Detailed Morphology - [id number] INDICATIONS: 19 weeks gestation of Z3A.19 CHAROT [...] Visualized SVC: Visualized Interventr. Septum: Visualized Cardiac [place]: Visualized Diaphragm: Visualized 3 Vessel View: Visualized [...] who have questions, please contact the health social worker palliative care that requested your imaging first. Vivek Lala, Staff Physician Electronically Signed Final Report 06/29/2024 12:05 pm [facility] documented in this encounter Visit Diagnoses Diagnosis Supervision of resulting from assisted reproductive technology in second trimester resulting from assisted reproductive technology Peroneal muscular atrophy documented in this encounter Care Teams Customer Pricing Manager Relationship Specialty Start Date End Date Malcolm Spring PA [address] [place] [address] PCP - General Internal Medicine 08/08/21 documented as of this encounter
--- OUTSIDE RECORDS SUMMARY | 2024-10-04 16:31 | XMS_ITS | Encounter Summary ---
Author Organization [facility] Address [address] [place] [address] Care Team Providers Care Auto Claims Adjuster Name Role Phone Blayne Song APRN Primary Care Provider [phone] Reason for Visit * Reason Comments Family History Of Genetic Disease [place] t Bella Tooth Disease Encounter Details Date Type Department Care Team (Late st Contact Info) Description 06/13/2018 15:00 EDT Office Visit [facility] Clinical Genetics [address] [address] Faraz Karina, MS [address] [place], [place] [address] Family history of genetic disease (Primary Dx); [...] CONSULTATION Encounter Date: 06/13/2018 Olya Trujillo 1990 [id number] Blayne Song Olya Trujillo is a 28 [...] paternal grandfather has COPD. Jessica is of [place] and Mixed ancestry . There is no known consanguinity. PAST MEDICAL HISTORY: Olya has generally been in good health. She has a history of frequent urinary tract infections.She does not think she has any symptoms of CMT however, she feels like she has less balance than before. 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 The surgical history is No past surgical [...] free for this known familial mutation through [facility]. We discussed the pros and cons [...] MS Genetic Counselor Rere Pabon MD Clinical Dialysis Technician documented in this encounter Plan of Treatment Not on file documented as of this encounter Visit Diagnoses Diagnosis Family history of genetic disease- Primary Family history of other condition History of genetic counseling Genetic testing Other investigation and testing for procreative management documented in this encounter Care Teams Auto Claims Adjuster Relationship Specialty Start Date End Date Blayne Song APRN [address] [place] [address] [address] [place] [address] PCP - General 02/21/14 documented as of this encounter
--- OUTSIDE RECORDS SUMMARY | 2024-10-04 16:31 | XMS_ITS | Encounter Summary ---
[place] [address] Care Team Providers Care Mortar Man Name Role Phone Toño Owens MD, Kevin Primary Care Provider [phone] Encounter Details Date Type Department Care Team (Late st Contact Info) Description 08/06/2021 Telephone [place] [address] Bryanna Bush Social History Tobacco Use Types [...] placed to the Ds office and this keno writer/runner was told the referral should be going to bariatric surgery. A detailed message was left for the patient to contact Gen Surg's department at [phone]. documented in this encounter Plan of Treatment Not on file documented as of this encounter Visit Diagnoses Not on filedocumented in this encounter Care Teams Mortar Man Relationship Specialty Start Date End Date [place] [address] PCP - General 09/01/10 08/07/21 documented as of this encounter
--- OUTSIDE RECORDS SUMMARY | 2024-10-04 16:31 | XMS_ITS | Encounter Summary ---
Author Organization [facility] Address [address] [place] [address] Care Team Providers Care Electronics Technician Name Role Phone Blayne Song APRN Primary Care Provider [phone] Reason for Referral * Consult (Routine) - Closed Specialty Diagnoses / Procedures Referred By Huang salazar Referred To Contact Neurology Diagnoses Family history of genetic disease Genetic carrier Rere Pabon MD Phone: tel: fax: Alexis Arcos MD Phone: tel: fax: Referral ID Status Reason Start Date Expiration Date V isits Requested Visits Authorized [id number] Closed Specialty Services Required 06/28/2018 1 1 Question Answer Reason for Request: positive genetic testing for Dtpprso-Bkfls-Edmyp in the MPZ gene Comments She does not have any symptoms yet. Wants to discuss care. Encounter Details Date Type Department Care Team (Late st Contact Info) Description 06/28/2018 Orders Only [facility] Pediatric Genetics - [facility] [address] [place], [place] [address] Karina Ruth, MS [address] [facility] [place], [place] [address] Family history of genetic disease (Primary Dx); [...] status documented in this encounter Care Teams Electronics Technician Relationship Specialty Start Date End Date Blayne Song APRN [address] [place] [address] [address] [place] [address] PCP - General 02/21/14 documented as of this encounter
--- OUTSIDE RECORDS SUMMARY | 2024-10-04 16:31 | XMS_ITS | Encounter Summary ---
Author Organization [facility] [place] [address] Care Team Providers Care Wafer Fab Operator Name Role Phone Malcolm Spring Primary Care Provider [phone] Reason for Visit * Reason Comments Known Genetic Condition Ceenuvh-Rwrwj-Th oth (CMT) hereditary neuropathy, currently asymptomatic Encounter Details Date Type Department Care Team (Late st Contact Info) Description 06/29/2024 10:00 AM EDT Office Visit Obstetrics [place] [address] Pollo Wilson, [facility] [place] [address] Encounter for procreative genetic counseling; Hereditary familial [...] this encounter Progress Notes * Pollo Wilson, [facility] - 06/29/2024 10:00 AM EDT Reproductive Genetics Olya Trujillo is a 34 y.o. female currently at 19w0d gestation. I met with Olya fora 45-minute genetic counseling visit at the [facility]. She was accompanied by her partner, Live;and her sister, Pankaj. Referring Provider: Petra Mulkern[address] [place] [address] Chief Concern Patient presents with Known Genetic Condition Sndqvun-Efyta-Kyryj (CMT) hereditary neuropathy, currently asymptomatic Previous Genetics Visits: 06/13/2018: Genetic counseling with Sandy Ruth MS, at [facility] due to family historyof CMT. 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 Visit note and test report available in [facility] Everywhere. Patient History Past Medical History: Diagnosis Date Mtyczrf-Ofsxw-Ecvlt disease Partner History Name: Live Roth : 01/25/1983 Sex: Male Medical History: Vitiligo Family History Congenital conditions: Cerebral palsy - Olya's maternal uncle. Known genetic conditions: Szvblzj-Mfeiv-Nbyeu disease - Olya's sister, mother, and multiple maternal relatives. OB History Para Term AB Living 5 0 0 0 4 0 SAB IAB Ectopic Multiple Live Births 1 3 0 0 0 LMP 02/17/2024. Spontaneous conception. TOO 11/23/2024 based on menstrual dating and supported by ultrasound (04/17/2024). Genetic Testing Results [facility] cell-free DNA screen (05/07/2024): Low risk for trisomy 21, trisomy 18, trisomy 13, sex chromosome aneuploidy, and triploidy. Male fetus. 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 [employer] MPZ Gene Sequencing (06/13/2018): Positive result. 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 ClinVar ID: [id number]. Assessment 1. Dufwtbx-Xnufx-Ktlry disease: CMT is a group of hereditary [...] with symptomsin childhood or young adulthood (PMID: [id number]). testing would be possible, which lOya declines. Presymptomatic testing of minors is currently [...] symptoms of this condition, such as myotonic health information managers. Also of note, Live is a heterozygous [...] fetus documented in this encounter Care Teams Wafer Fab Operator Relationship Specialty Start Date End Date Malcolm Spring PA [address] [place] [address] PCP - General Internal Medicine 08/08/21 documented as of this encounter
--- OUTSIDE RECORDS SUMMARY | 2024-10-04 16:31 | XMS_ITS | Encounter Summary ---
Author Organization [facility] Address [address] [place] [address] Care Team Providers Care Tracer Lathe Set Up Operator Name Role Phone Blayne Song APRN Primary Care Provider [phone] Encounter Details Date Type Department Care Team (Late st Contact Info) Description 06/13/2018 Orders Only [facility] Pediatric Genetics - Main [place] [address] [place], [place] [address] Karina Ruth, MS [address] [place], [place] [address] Family history of Giahxka-Sflqr-Yabds disease (Primary Dx) Social History Tobacco Use [...] AT [facility], 3 06/13/2018 16:11 EDT [facility] Comment:5 ML EDTA PURPLE TOP , ROOM TEMP Result LAB ORDER CORRECTION 06/13/2018 16:46 EDT [facility] Comment:ORDERED SHIP1 Date Sample Shipped 06/13/18 06/13/2018 16:31 EDT [facility] Specimen of unknown material (specimen) TOPOGRAPHY UNKNOWN / Unknown 06/13/2018 16:19 EDT 06/13/2018 16:30 EDT us Rere Pabon MD CHEMISTRY & BLOOD GAS AARON DURAN Final Result [facility] [address] [place] [address] documented in this encounter Visit Diagnoses Diagnosis Family history of Uhaqgvy-Acjxp-Kieyy disease- Primary Family history of other neurological diseases documented in this encounter Care Teams Tracer Lathe Set Up Operator Relationship Specialty Start Date End Date Blayne Song APRN [address] [place] [address] [address] [place] [address] PCP - General 02/21/14 documented as of this encounter
--- OUTSIDE RECORDS SUMMARY | 2024-10-04 16:31 | XMS_ITS | Encounter Summary ---
[place] [address] Care Team Providers Care Lay Out Carpenter Name Role Phone Malcolm Spring Primary Care Provider [phone] Reason for Referral * Consultation (Routine) - Authorized Specialty Diagnoses / Procedures Referred By Huang salazar Referred To Contact Obstetrics and Gynecology Diagnoses Encounter for supervision of normal , antepartum, unspecified Supervision of resulting from assisted reproductive technology in second trimester Family history of Vbsoshv-Fzuhx-Dmqke disease Detail Morph (06/29-07/13) and GC 21-HYDROXYLASE DEFICIENCY CARRIER Petra Meza CNM [address] [place] [address] [address] [place] [address] [facility] Employment Representative [address] [place] [phone] Referral ID Status Reason Start Date Expiration Date Visits Requested Visits Authorized [id number] Authorized Consult, Test & Treat PCP Updated and/or Approved 05/08/2024 05/08/2025 12 12 Encounter Details Date Type Department Care Team (Late st Contact Info) Description 05/08/2024 Transcribe Orders eDH Incoming Referrals [phone] Petra Meza CNM [address] [place] [address] [address] [place], [place] [id number] Encounter for supervision of normal , antepartum, [...] technology documented in this encounter Care Teams Lay Out Carpenter Relationship Specialty Start Date End Date Malcolm Spring PA [address] [place] [address] PCP - General Internal Medicine 08/08/21 documented as of this encounter
--- OUTSIDE RECORDS SUMMARY | 2024-10-04 16:31 | XMS_ITS | Encounter Summary ---
Author Organization [facility] Address [address] [place] [address] Care Team Providers Care Club Director Name Role Phone Blayne Song APRN Primary Care Provider [phone] Reason for Visit * Reason Onset Date Comments Billing Question 09/11/2018 Encounter Details Date Type Department Care Team (Late st Contact Info) Description 09/11/2018 Telephone [facility] Children[facility] Pediatric Pulmonary - [facility] [address] [place], [place] [address] FarazKarina, MS [address] [place] [address] Billing Question Social History Tobacco Use Types [...] Olya that the actual genetic testing at [facility] was free. The blood draw through [facility] was not included in that and [...] and also call patient financial services at [phone] and see if they could set up a payment plan. She called back and complained that she was never told to expect these charges and she was told everything was free. I again explained that the genetic testing through [facility] was free. However the blood draw [...] on filedocumented in this encounter Care Teams Club Director Relationship Specialty Start Date End Date Blayne Song APRN [address] [place] [address] [address] [place] [address] PCP - General 02/21/14 documented as of this encounter
--- OUTSIDE RECORDS SUMMARY | 2024-10-04 16:31 | XMS_ITS | Encounter Summary ---
Author Organization [facility] Address [address] [place] [address] Care Team Providers Care Programming Director Name Role Phone Blayne Song APRN Primary Care Provider [phone] Reason for Visit * Reason Onset Date Comments Billing Question 09/06/2018 Encounter Details Date Type Department Care Team (Late st Contact Info) Description 09/06/2018 Telephone [facility] Pediatric Genetics - [facility] [address] [place], [place] [id number] Karina Ruth, [address] [place], [place] [address] Billing Question Social History Tobacco Use Types [...] on filedocumented in this encounter Care Teams Programming Director Relationship Specialty Start Date End Date Blayne Song APRN [address] [place] [address] [address] [place] [address] PCP - General 02/21/14 documented as of this encounter
--- OUTSIDE RECORDS SUMMARY | 2024-10-04 16:31 | XMS_ITS | Encounter Summary ---
Author Organization [facility] Address [address] [place] [address] Care Team Providers Care Supervisor Sewer System Name Role Phone Duncan Blayne Molina APRN Primary Care Provider [phone] Encounter Details Date Type Department Care Team (Late st Contact Info) Description 06/13/2018 12:28 EDT - 06/13/2018 23:59 EDT Hospital Encounter [address] [address] Rere Pabon MD [address] [place] [address] Discharge Disposition: Home or Self Care Social [...] 07/27/2018 15:2 9 EDT us Scan 2 [facility] LAB INFO SERVICE AND SUPPOR T & PHONE RESULT Final Result documented in this encounter Visit Diagnoses Not on filedocumented in this encounter Care Teams Supervisor Sewer System Relationship Specialty Start Date End Date Blayne Song APRN [address] [place] [address] [address] [place] [address] PCP - General 02/21/14 documented as of this encounter
--- OUTSIDE RECORDS SUMMARY | 2024-10-04 16:31 | XMS_ITS | Encounter Summary ---
Author Organization [facility] Address [address] [place] [address] Care Team Providers Care Manager Play Name Role Phone Brianna Vieyra APRN Primary Care Provider [phone] Reason for Referral * Consult (Routine) - Closed Specialty Diagnoses / Procedures Referred By Contac t Referred To Contact Neurology Diagnoses Panchito Saldivar MD Phone: tel: fax: [facility] Adult Neurology - [address] [address] Phone: tel: fax: Referral ID Status Reason Start Date Expiration Date V isits Requested Visits Authorized [id number] Closed Specialty Services Required 02/21/2014 1 1 [...] 15:59 EDT - 02/21/2014 20:26 EDT Emergency [facility] Emergency Department - Main [address] [address] Panchito Lucero MD [address] [place] [address], Level [address] [place] [address] Emergency, MD Devika Adkins (Primary Dx) Discharge [...] Recent head injury: No recent head injuries AIRCRAFT 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 SUPERVISOR treatment: None History of seizures: no Review [...] 02/21/2014 19:24 EDT 02/21/2014 19:31 EDT Panchito Luceor MD GEN LAB UNIT COLLECT ORDERABL ES Final Result [facility] [address] [place] [address] * POCT URINE TEST (02/21/2014 18:37 EDT) [...] F inal Result [facility] [address] [place] [address] * HEMAGRAM (02/21/2014 18:23 EDT) WBC 6.89 [...] ORDERABLES F inal Result Performing Organization Address [facility] de Phone Number [facility] [address] [place] [address] * CREATININE (02/21/2014 18:23 EDT) Creatinine 0.61 0.52 - 1.04 mg/dl [facility] GFR, Calculated >60 >60 ml/min/1.7 3m2 [facility] Blood specimen (specimen) 02/21/2014 18:23 EDT 02/21/2014 18:46 EDT Panchito Lucero MD CHEMISTRY & BLOOD GAS ORDERAB LES Final Result Performing Organization Address [facility] de Phone Number [facility] [address] [place] [address] * (ABNORMAL) BUN (02/21/2014 18:23 EDT) BUN <3(L) 10 - 26 mg/dl [facility] Blood specimen (specimen) 02/21/2014 18:23 EDT 02/21/2014 18:46 EDT Panchito Lucero MD CHEMISTRY & BLOOD GAS ORDERAB LES Final Result Performing Organization Address [facility] Phone Number [facility] [address] [place] [address] * ELECTROLYTES (02/21/2014 18:23 EDT) Sodium 141 [...] ORDERAB LES Final Result Performing Organization Address [facility] Phone Number [facility] [address] [place] [address] * SCREENING GLUCOSE (02/21/2014 18:23 EDT) Glucose, Screening 100 70 - 100 mg/dl [facility] Blood specimen (specimen) 02/21/2014 18:23 EDT 02/21/2014 18:46 EDT Panchito Lucero MD CHEMISTRY & BLOOD GAS ORDERAB LES Final Result Performing Organization Address [facility] de Phone Number [facility] [address] [place] [address] * (ABNORMAL) POCT URINE DIPSTICK (02/21/2014 17:01 EDT) Color YELLOW [facility] Clarity, UA Clear [facility] Glucose Neg Neg [facility] Bilirubin Neg Neg [facility] Ketones Neg Neg [facility] Specific [place] 1.010 1.001 - 1.035 [facility] Blood Trace(A) Neg [facility] pH 7.0 4.6 - 8.0 [facility] Protein Neg Neg [facility] Urobilinogen 0.2 0.2 - 1.0 E.U./dl [facility] Nitrite Neg Neg [facility] Leuk Esterase Neg Neg [facility] repairer general ID [id number] [facility] Comment:Test performed at Em ergency Department Urine specimen (specimen) 02/21/2014 17:01 EDT 02/21/2014 17:12 EDT Panchito Lucero MD POINT OF CARE TEST ORDERABLES Final Result [facility] [address] [place] [address] documented in this encounter Visit Diagnoses Diagnosis Spells- Primary Other convulsions documented in this encounter Orders Nursing Count Last Ordered Date First Orde red Date PULSE OXIMETRY 1 02/21/2014 documented in this encounter Care Teams Manager Play Relationship Specialty Start Date End Date Brianna Vieyra APRN [address] [place] [address] [address] [place], [place] [address] PCP - General 02/21/14 documented as of this encounter
--- OUTSIDE RECORDS SUMMARY | 2024-10-04 16:31 | XMS_ITS | Encounter Summary ---
Author Organization [facility] Address [address] [place] [address] Care Team Providers Care Felling Machine Operator Name Role Phone Blayne Song APRN Primary Care Provider [phone] Encounter Details Date Type Department Care Team (Late st Contact Info) Description 05/08/2024 Lab Requisition [facility] Pathology & Laboratory Medicine - [facility] [address] [place] [address] Outr Resulting Lab, Provider Social History Tobacco [...] 4th Generation Negative Negative 05/08/2024 19:07 EDT [facility] Comment:If acute HIV-1 infec tion is suspected in a high risk patient, submit plasma specimen for HIV-1 RNA quantitation test. Blood VENOUS BLOOD / Unknown 05/07/2024 15:50 EDT 05/08/2024 17:18 EDT Narrative [facility] - 05/08/2024 19:07 EDT Fourth Generation assay performed on the Siemens Centaur XPT. us Provider Outr Resulting Lab IMMUNOLOGY AND SEROL OGY ORDERABLES Final Result [facility] [address] [place] [address] documented in this encounter Visit Diagnoses Not on filedocumented in this encounter Care Teams Felling Machine Operator Relationship Specialty Start Date End Date Blayne Song APRN [address] [place] [address] [address] [place] [address] PCP - General 02/21/14 documented as of this encounter
--- OUTSIDE RECORDS SUMMARY | 2024-10-04 16:31 | XMS_ITS | Encounter Summary ---
[place] [address] Care Team Providers Care Phlebotomist Lab Assistant Name Role Phone Malcolm Spring Primary Care Provider [phone] Encounter Details Date Type Department Care Team [...] on filedocumented in this encounter Care Teams Phlebotomist Lab Assistant Relationship Specialty Start Date End Date Malcolm Spring PA [address] [place] [address] PCP - General Internal Medicine 08/08/21 documented as of this encounter
--- OUTSIDE RECORDS SUMMARY | 2024-10-04 16:31 | XMS_ITS | Referral Summary ---
Author Organization [facility] Address [address] [place] [address] Care Team Providers Care Grassland Conservationist Name Role Phone Blayne Song APRN Primary Care Provider [phone] Allergies No known active allergies Medications No [...] C Antibody Negative Negative 05/08/2024 19:05 EDT [facility] Blood VENOUS BLOOD / Unknown 05/07/2024 15:50 EDT 05/08/2024 17:11 EDT us Provider Outr Resulting Lab CHEMISTRY & BLOOD GA S ORDERABLES Final Result [facility] [address] [place] [address] from Last 3 Months or Most Recently Relevant to Health Maintenance Care Teams Grassland Conservationist Relationship Specialty Start Date End Date Blayne Song APRN [address] [place] [address] [address] [place] [address] PCP - General 02/21/14
--- OUTSIDE RECORDS SUMMARY | 2024-10-04 16:31 | XMS_ITS | Encounter Summary ---
Author Organization [facility] Address [address] [place] [address] Care Team Providers Care Advanced Practice Professional Name Role Phone Blayne Song APRN Primary Care Provider [phone] Encounter Details Date Type Department Care Team (Late st Contact Info) Description 04/22/2022 Lab Requisition [facility] Pathology & Laboratory Medicine - [facility] [address] [place] [address] Outr Resulting Lab, Provider Social History Tobacco [...] B SURFACE ANTIBODY (04/21/2022 15:00 EDT) Pathologist [facility] Hep B Surface Ab, Quantitative <3.1 See Note mIU/mL 04/23/2022 8:50 EDT [facility] Comment: Reference Range for Hep B Surface Ab, Quant: Positive: >= 10.0 mIU/mL Negative: ??< 10.0 mIU/mL Patient is presumed to not be immune to infection with Hepatitis B Virus. Hep B Surface Ab, Qualitative Negative See Note 04/23/2022 8:50 EDT [facility] Comment: Reference Range for Hep B Surface Ab, Qual: Unvaccinated: ??Negative Vaccinated: ??Positive Blood VENOUS BLOOD / Unknown 04/21/2022 15:00 EDT 04/22/2022 17:37 EDT us Provider Outr Resulting Lab CHEMISTRY & BLOOD GA S ORDERABLES Final Result Performing Organization Address [facility] de Phone Number [facility] [address] [place] [address] * HEPATITIS C AB W REFLEX TO HCV RNA BY PCR (04/21/2022 15:00 EDT) [facility] Hep C Antibody Negative Negative 04/23/2022 9:35 EDT [facility] Blood VENOUS BLOOD / Unknown 04/21/2022 15:00 EDT 04/22/2022 17:37 EDT us Provider Outr Resulting Lab CHEMISTRY & BLOOD GA S ORDERABLES Final Result Performing Organization Address [facility] Co de Phone Number [facility] [address] [place] [address] * (ABNORMAL) HERPES SIMPLEX VIRUS (HSV) TYPE 1 & 2 AB, IGG (04/21/2022 15:00 EDT) [facility] HSV Type 1 Ab, IgG Negative Negative 04/28/2022 12:07 EDT [facility] Comment: No detectable antibodies [...] Ab, IgG Positive(A) Negative 04/28/2022 12:07 EDT [facility] Comment:Indicates the presen ce of detectable IGG antibody to HSV 2 Blood VENOUS BLOOD / Unknown 04/21/2022 15:00 EDT 04/22/2022 17:22 EDT us Provider Outr Resulting Lab IMMUNOLOGY AND SEROL OGY ORDERABLES Final Result [facility] [address] [place] [address] documented in this encounter Visit Diagnoses Not on filedocumented in this encounter Care Teams Advanced Practice Professional Relationship Specialty Start Date End Date Blayne Song APRN [address] [place] [address] [address] [place] [address] PCP - General 02/21/14 documented as of this encounter
--- OUTSIDE RECORDS SUMMARY | 2024-10-04 16:31 | XMS_ITS | Encounter Summary ---
Author Organization [facility] Address [address] [place] [address] Care Team Providers Care Property Management Supervisor Name Role Phone Blayne Song APRN Primary Care Provider [phone] Encounter Details Date Type Department Care Team (Late st Contact Info) Description 06/13/2018 Phlebotomy Only [facility] - [address] [address] Health Benefits Specialist, Outpatient Family history of Rlsmwsx-Jjgfn-Gpkjb disease (Primary Dx) Social History Tobacco Use [...] Date/Time Associated Diagnosis Comments MISCELLANEOUS TEST, NON BONNYMAN Routine 06/13/2018 16:19 EDT Family history of Ymjymqu-Iqywi-Kehg h disease documented in this encounter Results * MISCELLANEOUS TEST, NON DIA (06/13/2018 16:19 EDT) Test Name TESTING FOR KNOWN FAMILIAL GENETIC MUTATION IN MPZ GENE, C.314C>T, AT [facility], 3 06/13/2018 16:11 EDT [facility] Comment:5 ML EDTA PURPLE TOP , ROOM TEMP Result LAB ORDER CORRECTION 06/13/2018 16:46 EDT [facility] Comment:ORDERED SHIP1 Date Sample Shipped 06/13/18 06/13/2018 16:31 EDT [facility] Specimen of unknown material (specimen) TOPOGRAPHY UNKNOWN / Unknown 06/13/2018 16:19 EDT 06/13/2018 16:30 EDT us Rere Pabon MD CHEMISTRY & BLOOD GAS AARON DURAN Final Result [facility] [address] [place] [address] documented in this encounter Visit Diagnoses Diagnosis Family history of Gtxkqid-Fxvlg-Zkxpa disease- Primary Family history of other neurological diseases documented in this encounter Care Teams Property Management Supervisor Relationship Specialty Start Date End Date Blayne Song APRN [address] [place] [address] [address] [place] [address] PCP - General 02/21/14 documented as of this encounter
== END 2024-10-04 16:30 | disposition home or self-care (01) ==
LOC: LBO 16:29
PROVIDERS: PCP Physician Assistant; Visit Provider Advanced Practice Midwife
DX: O26.843 Uterine size-date discrepancy, third trimester (principal); Z3A.32 32 weeks gestation of pregnancy
CPT/HCPCS: 36415; 83036

== ENCOUNTER 2024-10-18 03:57 | Outpatient (CLI) | payer MEDICAID, SELFPAY ==
--- NOTE | 2024-10-18 13:45 | DI.US_ITS ---
Exam(s) US OB ALIX WEIGHT EXAM: US OB ALIX WEIGHT CLINICAL HISTORY: S>D at 30 wks,inconsistent size,O26.849. TECHNIQUE: Transabdominal obstetrical ultrasound was performed. COMPARISON: US POCUS EXAM from 04/17/2024 FINDINGS: There is a single viable intrauterine gestation with cardiac activity identified-138 bpm The fetus is presently in cephalic position . Amniotic fluid: Upper normal/mild polyhydramnios, with ALIX = 24.83 cm Placental location: The placenta is posterior grade 1,with no evidence of placenta previa. Dating parameters place this at approximately 38 weeks and 4 days gestational age, implying TOO of 10/28/2024. BPD measures 38 weeks and 6 days HC measures 40 weeks and 0 days AC measures 38 weeks and 3 days FL measures 37 weeks and 0 days Estimated weight is 3457 gm-7 pounds 10 ounces Fetus is at the greater than 97th percentile on the Hadlock scale. IMPRESSION:: Viable 3rd trimester gestation, as described above. Large fetus which is at greater th an 97th percentile ranking on the Hadlock scale. Present in cephalic position The amount of amniotic fluid is minimally prominent, with ALIX= 24.83 cm (Normal Range is 10-24 cm). DATA REPOSITORY:
== END 2024-10-18 04:17 ==
PROVIDERS: PCP Physician Assistant; Visit Provider Advanced Practice Midwife
DX: O26.843 Uterine size-date discrepancy, third trimester (principal); Z3A.40 40 weeks gestation of pregnancy
CPT/HCPCS: 76816

== ENCOUNTER 2024-10-31 00:42 | Outpatient (CLI) | payer MEDICAID, SELFPAY ==
--- NOTE | 2024-10-31 07:15 | DI.US_ITS ---
Exam(s) US OB ALIX WEIGHT EXAM: US OB ALIX WEIGHT CLINICAL HISTORY: polyhydramnios,O40.9XX0. TECHNIQUE: Transabdominal obstetrical ultrasound performed. COMPARISON: US POCUS EXAM from 04/17/2024 US US OB ALIX WEIGHT from 10/18/2024 FINDINGS:: Number of fetuses: 1 position: Cephalic Placental location: Posterior no evidence of previa. BIOMETRIC DATA: BPD: 99 mm, 40+ 4 weeks HC: 350 mm, 40+ 5 weeks AC: 348 mm, 38+ 5 weeks FL: 76 mm, 38+ 5 weeks EFW: 3715 grams, greater than 97 percentile, , Composite Age: 39+ 5 weeks TOO: 02 November 2024 Heart Rate: 134 BPM Amniotic fluid index: 21.1, upper range of normal. IMPRESSION: size and weight are above the expected range for but appropriate interval growth from prior. ALIX now measured at 21.1 upper normal range, compared with 24 on the prior exam. DATA REPOSITORY:
== END 2024-10-31 01:02 ==
LOC: DI 00:42
PROVIDERS: PCP Physician Assistant; Visit Provider Advanced Practice Midwife
DX: O40.3XX1 Polyhydramnios, third trimester, fetus 1 (principal); Z3A.40 40 weeks gestation of pregnancy
CPT/HCPCS: 76816

== ENCOUNTER 2024-10-31 21:34 | Outpatient (REF) | payer MEDICAID, SELFPAY | END 2024-10-31 21:35 | disposition home or self-care (01) | LOC: LBN 21:34 | PROVIDERS: PCP Physician Assistant; Visit Provider Advanced Practice Midwife | DX: Z34.93 Encounter for supervision of normal pregnancy, unspecified, third trimester (principal) | CPT/HCPCS: 87081 ==

== ENCOUNTER 2024-11-08 17:12 | Outpatient (REF) | payer MEDICAID, SELFPAY ==
[2024-11-08 19:52] LABS: COMMENT (LAB VIEW ONLY) 39.69 mg/dL
== END 2024-11-08 17:13 | disposition home or self-care (01) ==
LOC: LBN 17:12
PROVIDERS: PCP Physician Assistant; Visit Provider Advanced Practice Midwife
DX: R60.0 Localized edema (principal)
CPT/HCPCS: 82565; 84156

== ENCOUNTER 2024-11-13 13:45 | Inpatient (IN) | payer MEDICAID, SELFPAY ==
[2024-11-13] VITALS (62 sets, daily range): BP systolic 118–130; BP diastolic 61–75; PULSE 0–88; RESP 16–20; TEMP 36.5–37.1; O2SAT 96–100
--- NOTE | 2024-11-13 13:51 | HPE_ITS ---
Date of service: 11/13/24 Time of Service: 13:56 Assessment and Plan Assessment and plan (1) Spontaneous onset of labor: Status: Acute Assessment and plan: Admit to Center and routine admission labs. Comfort measures. Anticipate . OB-HPI Labor/Delivery History of Present Illness Reason for Visit: labor Chief Complaint: Uterine Contractions. TOO Calculator Estimated Delivery Date Method Current WG Current Estimate 11/23/24 LMP (Certain) 38w 4d Other Estimates 11/20/24 Ultrasound #1 39w 0d Comments: Olya reports contractions since 0330 this morning. She denies leaking fluid. History of Present Expected Delivery Route/Plan - CNM FOB/boyfriend - Live [facility] (1 child healthy) BB yes to circ Varicella non-immune, offer vaccine GBS neg - has been pumping and hand expressing colostrum. Specific Issues/Plan 1. BMI 40, Early aooikag=263, 28 wk jmzxdmd=219, 3 hr GTT nml x3, 2hr rvfcenepa=230. Dietary counseling done, XfwJ1O=0.2 @ 32 wks. 35wks: pt agrees to blood sugar QID, review on 10/31 visit 1a. Home fingerstick glucose reinstated @ 35 wks: initial readings nml, continue 4days/wk for 1 wk __ 2. History of depression. 5 Ps neg 3. 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 3a. Family History Charsharita Kemp, [facility] consult & level 2 US 06/29/24=normal anatomy scan. 4. Increased preeclampsia risk , ASA recommended daily. 5. cfDNA low risk male , CF previously screened neg, AFP declined 6. Rh negative, 28 wk RhoGam received 08/30/24 7. History of e. coli UTI- treated 05/09 for UTI x 10 days. 7a. Sx recurring 06/04, US/C&S to [facility] -UA pos. and culture + for e.coli - treated with macrobid x 10 days. 7b. 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 Urine C&S on 08/24 is negative ([facility] result) 8. LGA: EFW/ALIX at 34 wks 10/18/24: EFW >97%ile, 3457g or 7lb10z, mild poly @ 24cm. Repeat ALIX+EFW ordered for 2wks. 8a. EFW/ALIX @ 36 wks: EFW 3700 gms, >97th percentile, ALIX 21.1 cm, cephalic. 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, and myotonia congenita Callus of foot Overweight Overactive bladder Bilateral plantar wart Depression Pain, joint, knee, left Family History (Updated 05/07/24 @ 15:51 by Petra Meza CNM) Mother CMT (Suerbeu-Numwm-Sgvsr disease) Sister CMT (Kseehap-Sstef-Dsihe disease) Uncle Multiple sclerosis Social History (Updated 05/17/23 @ 15:38 by Emmy Gomes) Smoking/Tobacco Use Status: Never Smoking risk assessment performed?: Yes Alcohol Intake: current Drug use: Never Substance use type: does not use Household members: significant other and children Sexually active: Yes Do you think of yourself as: straight/heterosexual Current gender identity: female What is your relationship status?: living with partner Panel score (0-1 are the most socially isolated patients): 1 What type of physical activity do you participate in: regular exercise Seatbelt use: always Helmet use: Yes Drive intox or ride w/intox combine driver: No Do you feel safe at home: Yes Do you feel safe in your relationship?: Yes History History 5 Para 0 Hx # Term Pregnancies 0 Multiple births 0 Hx # Pregnancies 0 Ectopic pregnancies 0 AB induced 3 Hx Number of Living Children 0 AB spontaneous 1 Meds Allergies and Home Medications Allergies Allergy/AdvReac Type Severity Reaction Status Date / Time Sulfa (Sulfonamide Allergy Severe Reaction Verified 11/08/24 15:56 Antibiotics) vomiting, diarrhea, skin burning uncontrollably Home Medications ?Medication ?Instructions ?Recorded ?Confirmed ?Type vitamins no.119-iron tab PO 04/17/24 11/08/24 History fumarate 29 mg-folic acid 1 mg tablet aspirin 81 mg chewable tablet 162 mg PO DAILY 07/02/24 11/08/24 History cranberry extract 500 mg tablet 500 mg PO DAILY 07/02/24 11/08/24 History docusate sodium 100 mg capsule 100 mg PO BID #60 caps 08/24/24 11/08/24 Rx (Colace) famotidine 20 mg tablet 20 mg PO DAILY #30 tabs 10/19/24 11/08/24 Rx alcohol swabs (Alcohol Pads) 1 pad topical QID #100 ea 10/22/24 11/08/24 Rx blood sugar diagnostic (FreeStyle #100 ea 10/22/24 11/08/24 Rx Lite Strips) blood-glucose meter (FreeStyle #1 ea 10/22/24 11/08/24 Rx Lite Meter kit) lancets 28 gauge (FreeStyle #100 ea 10/22/24 11/08/24 Rx Lancets) Exam Physical Exam Vital signs: Pulse BP 83 130/70 11/13/24 13:16 11/13/24 13:16 Vital Signs Reviewed: Yes Constitutional Constitutional: no acute distress Detailed Labor and Delivery Exam Dilation: 2 Effacement (%): 85 station: -1 Cervix position: mid Consistency: soft Holly Score: Cervical Points Exam 0 1 2 3 Dilation Closed 1-2cm 3-4 cm 5-6cm Effacement 0-30% 40-50% 60-70% 80% Consistency Firm Medium Soft Station -3 -2 -1,0 +1,+2 Position Posterior Mid Anterior Amniotic Membrane Status: Intact Rupture Method: Spontaneous Monitor Mode: External Contraction Frequency(min): every 3-5 Contraction Duration(sec): 60 Contraction Intensity: Mild/Moderate Fetus A Heart Rate Baseline: 130 Monitor Accelerations: 15 X 15 Monitor Decelerations: None Variability: Moderate (6-25 BPM) Presentation: Cephalic Categories: Category I HEENT Exam HEENT Exam: Normal Respiratory Exam Respiratory Exam: Normal Cardiovascular Exam Cardiovascular Exam: Normal Abdominal Exam Abdominal Exam: Normal Exam Exam: Normal Extremities Exam Extremities Exam: Normal Skin Exam Skin Exam: Normal Psychiatric Exam Psychiatric Exam: Normal Risk Assessment Risk for Shoulder Dystocia Historical/Initial OB: POSITIVE FOR: Pre- BMI>30; NEGATIVE FOR: Pelvic Abnormality, Previous Shoulder Dystocia or Previous Macrosomia 36 Weeks: POSITIVE FOR: EFW>4500gms; NEGATIVE FOR: Current Gestational DM or Maternal Weight Gain>40lbs 40 Weeks: POSTIVE FOR: EFW> 4500 gms; NEGATIVE FOR: Maternal Weight Gain >40lb or Post Dates Increased Risk?: Yes Delivery Plan @ 40 wks: spontaneous labor and Risk for Pre-Eclampsia Yes, if one or more: NEGATIVE FOR: Hx Pre-E/Gest HTN, Chronic HTN, Multiple Gestation, Pre-gestational DM, Renal Disease, Systemic Lupus or APA Syndrome Yes, if 2 or more: POSITIVE FOR: Nulliparity and BMI>30; NEGATIVE FOR: Age>= 35 yrs, >10yr btwn pregnancies, ethinicty, Mother/Sister w/ Pre-E or Previous IUGR Risk for Post- Hemorrhage Initial: NEGATIVE FOR: Multiple Gestation, Previous PPH, Known Clotting Deficiency, Grand Multiparity or Anticoagulation 36 Weeks: POSITIVE FOR: EFW>4500gms; NEGATIVE FOR: Anemia, hgb<10, Low platelets(thrombocytopenia), Gestational HTN or Pre-E or Polyhydraminios 40 Weeks: POSITIVE FOR: EFW>4500gms; NEGATIVE FOR: Anemia, hgb<10, Low platelets (thrombocytopenia), Gestation HTN or Pre-E or Polyhydraminios At Risk?: Yes Risks Reviewed Risks Reviewed Upon Admission: Yes
--- NOTE | 2024-11-13 15:05 | W.OBNST ---
Date of service: 11/13/24 Time of Service: 15:05 NST Evaluation Reason for NST Reasons for Nonstress Test: OTHER, SEE COMMENT Reason for NST Other: rule out labor Gestational Age Gestational Age in Weeks and Days: 38 Weeks and 4Days Test and Monitor Explained Test/Monitor Explained: Test Explained, Monitor Explained and Patient Verbalized Understanding Vital Signs Blood Pressure: 130/70 Pulse: 83 Temperature: 98.1 F Urine Results Urine Protein: Negative Urine Ketones: Negative Urine Glucose: Negative Urine Blood: Negative NST Information Date on Monitor: 11/13/24 Time on Monitor: 13:12 Date off Monitor: 11/13/24 Time off Monitor: 13:36 Total Time on Monitor: 24 NST Interventions: PO Hydration Contraction Frequency: 4-5 NST Evaluation Patient States Movement: Present FHR Baseline: 130 Variability: Moderate 6-25 bpm Accelerations: 15x15 Decelerations: None NST Results: Reactive Note Ultrasound Done: N/A. NST Note Note: Olya is here for rule out labor. She has been having contractions since 0330. 2-3 cms/85% and -1 station. Admitted in early labor. Reactive NST NST Reviewed and Verified by: Petra Meza
--- NOTE | 2024-11-13 16:54 | W.PM.OBNL1 ---
Date of service: 11/13/24 Time of Service: 16:54 Informed Consent Informed Consent: Augmentation of Labor Pelvic Exam Dilation: 3 Effacement (%): 90 station: -1 Cervix Position: mid Consistency: soft Vaginal Exam Presentation: Cephalic Contractions Monitor Mode: External Contraction Frequency(min): every 3-5 Contraction Duration(sec): 60 Intensity: Mild/Moderate Fetus A Monitor: External (US) Heart Rate Baseline: 130 Presentation: Cephalic Variability: Moderate (6-25 BPM) Categories: Category I FHR Rhythm: Regular Accelerations: 15 X 15 Decelerations: None Amniotic Membrane Status: Intact Assessment and Plan Assessment and plan (1) Spontaneous onset of labor: Status: Acute Assessment and plan: Comfort measures and anticipate . Will reassess in 3 hours. Objective Temp Pulse Resp BP Pulse Ox 97.9 F 79 20 121/70 98 11/13/24 16:36 11/13/24 16:36 11/13/24 16:36 11/13/24 16:36 11/13/24 16:36 Subjective Patient Reports: New Complaints Interval history since last seen: contractions are slightly stronger
--- NOTE | 2024-11-13 18:41 | W.PM.OBNL1 ---
Date of service: 11/13/24 Time of Service: 18:42 Informed Consent Informed Consent: Augmentation of Labor Contractions Monitor Mode: External Contraction Frequency(min): every 3-5 Contraction Duration(sec): 60 Intensity: Mild/Moderate Fetus A Monitor: External (US) Heart Rate Baseline: 130 Presentation: Cephalic FHR Rhythm: Regular Decelerations: None Assessment and Plan Assessment and plan (1) Spontaneous onset of labor: Status: Acute Assessment and plan: Reviewed options with Olya including AROM with or without pitocin augmentation or expectant management. She desires pitocin augmentation at this time. Will start pitocin augmentation per protocol and anticipate . Dr. Powell was notified of admission and will plan to be in the hospital for the delivery due EFW 9 pounds (3715 g EFW by US 10/31). Shoulder dystocia risk and maneuvers reviewed with Olya and her partner Live. Objective Temp Pulse Resp BP Pulse Ox 97.9 F 73 16 125/61 98 11/13/24 18:30 11/13/24 18:30 11/13/24 18:30 11/13/24 18:30 11/13/24 18:30 Subjective Patient Reports: No new Complaints Interval history since last seen: Olya requests labor augmentation at this time.
[2024-11-13 19:45] LABS: HCT 34.1 % (36.0-46.0); HGB 11.7 g/dL (11.2-15.7); MCH 29.5 pg (27.0-33.0); MCHC 34.3 % (32.0-36.0); MCV 86 fL (80-95); MPV 11.3 fL (8.0-11.0); Platelet Count 225 10^3/uL (130-400); RBC 3.97 10^6/uL (3.93-5.22); RDW 12.8 % (11.7-14.6); RDW-SD 39.6 fL; WBC 13.35 10^3/uL (4.4-10.8)
[2024-11-13] MEDS: Lactated Ringers 1,000 ML 125 ML IV (19:56)
[2024-11-13] MEDS: Oxytocin/Normal Saline 30 UNIT/500 ML BAG 2 UNITS IV (19:57)
[2024-11-14] VITALS (165 sets, daily range): BP systolic 92–135; BP diastolic 52–91; PULSE 0–105; RESP 16; TEMP 36.4–37.1; O2SAT 94–100; BMI 46.3
--- NOTE | 2024-11-14 00:26 | W.PM.OBNL1 ---
Date of service: 11/14/24 Time of Service: 00:26 Informed Consent Informed Consent: Augmentation of Labor Pelvic Exam Dilation: 5 Effacement (%): 100 station: -1 Cervix Position: mid Consistency: soft Vaginal Exam Presentation: Vertex Contractions Monitor Mode: External Contraction Frequency(min): every 3-5 min Contraction Duration(sec): 60 Intensity: Moderate/Strong Fetus A Monitor: External (US) Heart Rate Baseline: 120 Presentation: Cephalic Variability: Moderate (6-25 BPM) Categories: Category I Accelerations: 15 X 15 Decelerations: None Amniotic Membrane Status: Intact Assessment and Plan Assessment and plan (1) Spontaneous onset of labor: Status: Acute Assessment and plan: Position changes suggested for comfort. Discussed anticipated length of labor and reviewed pain relief options. Olya is hoping to avoid an epidural if possible. She wishes to continue to use nitrous oxide for now and anticpate . Objective Abnormal lab results 11/13/24 Range/Units 19:30 WBC 13.35 H (4.4-10.8) 10^3/uL Hct 34.1 L (36.0-46.0) % MPV 11.3 H (8.0-11.0) fL Temp Pulse Resp BP Pulse Ox 97.5 F L 70 16 134/72 97 11/14/24 00:13 11/14/24 00:25 11/13/24 18:30 11/14/24 00:21 11/14/24 00:25 Laboratory Results WBC 13.35 10^3/uL (4.4-10.8) H 11/13/24 19:30 RBC 3.97 10^6/uL (3.93-5.22) 11/13/24 19:30 Hgb 11.7 g/dL (11.2-15.7) 11/13/24 19:30 Hct 34.1 % (36.0-46.0) L 11/13/24 19:30 MCV 86 fL (80-95) 11/13/24 19:30 MCH 29.5 pg (27.0-33.0) 11/13/24 19:30 MCHC 34.3 % (32.0-36.0) 11/13/24 19:30 RDW 12.8 % (11.7-14.6) 11/13/24 19:30 Plt Count 225 10^3/uL (130-400) 11/13/24 19:30 MPV 11.3 fL (8.0-11.0) H 11/13/24 19:30 ABO/Rh A Negative 11/13/24 19:30 Antibody Screen NEGATIVE 11/13/24 19:30 Subjective Patient Reports: New Complaints Interval history since last seen: Olya has been using nitrous oxide with good effect. She is coping well with contractions and she requested to discuss pain relief options. Pitocin is infusing at 8 mu/min Results Hemoglobin/Hematocrit: Hgb 11.7 g/dL (11.2-15.7) 11/13/24 19:30 Hct 34.1 % (36.0-46.0) L 11/13/24 19:30 Abnormal Lab Findings: Abnormal Labs 11/13/24 19:30 WBC 13.35 H Hct 34.1 L MPV 11.3 H
--- NOTE | 2024-11-14 01:55 | ANES.PREOP_ITS ---
General Info Date of Service Date Performed: 11/14/24 Height: 5 ft 4 in Weight: 122.47 kg Body Mass Index (BMI): 46.3 Meds Allergies and Home Medications Allergies Allergy/AdvReac Type Severity Reaction Status Date / Time Sulfa (Sulfonamide Allergy Severe Reaction Verified 11/08/24 15:56 Antibiotics) vomiting, diarrhea, skin burning uncontrollably Home Medication ?Medication ?Instructions ?Recorded vitamins no.119-iron tab PO 04/17/24 fumarate 29 mg-folic acid 1 mg tablet aspirin 81 mg chewable tablet 162 mg PO DAILY 07/02/24 cranberry extract 500 mg tablet 500 mg PO DAILY 07/02/24 docusate sodium 100 mg capsule 100 mg PO BID #60 caps 08/24/24 (Colace) famotidine 20 mg tablet 20 mg PO DAILY #30 tabs 10/19/24 alcohol swabs (Alcohol Pads) 1 pad topical QID #100 ea 10/22/24 blood sugar diagnostic (FreeStyle #100 ea 10/22/24 Lite Strips) blood-glucose meter (FreeStyle #1 ea 10/22/24 Lite Meter kit) lancets 28 gauge (FreeStyle #100 ea 10/22/24 Lancets) Current Visit Medications: Current Medications Generic Name Dose Route Start Last Admin Trade Name Freq PRN Reason Stop Dose Admin Fentanyl 50 mcg 11/14/24 00:25 Fentanyl 100 Mcg/2 Ml Vial IVP Q1H PRN PRN Fentanyl/Ropivacaine 200 ml 11/14/24 01:45 Fentanyl/Ropivacaine 2 Mcg/Ml And 0.1% 200 Ml Cadd Cassette EP DIRECTED [facility] Ringer's Solution 1,000 mls @ 125 mls/hr 11/13/24 18:45 11/13/24 19:56 IV 125 mls/hr INFUSION [facility] Administration Oxytocin/Sodium Chloride 30 unit in 500 mls @ 2 mls/hr 11/13/24 18:45 11/13/24 23:15 Pitocin/Normal Saline IV 8 milliunits/min INFUSION [facility] 8 mls/hr Titration Protocol 2 MILLIUNITS/MIN Ringer's Solution 500 mls @ 500 mls/hr 11/14/24 01:34 IV 11/14/24 02:33 BOLUS ONE IV Miscellaneous Supplies 1 each 11/13/24 13:45 Iv Access IV DIRECTED KARL IV Miscellaneous Supplies 1 each 11/13/24 18:45 Iv Access IV DIRECTED KARL Sodium Chloride 0 ml 11/13/24 13:44 Normal Saline Flush 10 Ml Syr IVP PRN PRN Sodium Chloride 0 ml 11/13/24 20:00 Normal Saline Flush 10 Ml Syr IVP BID KARL Sodium Chloride 0 ml 11/13/24 13:44 Normal Saline 10 Ml Vial IJ DIRECTED PRN Sodium Chloride 0 ml 11/13/24 18:40 Normal Saline Flush 10 Ml Syr IVP PRN PRN Sodium Chloride 0 ml 11/13/24 20:00 Normal Saline Flush 10 Ml Syr IVP BID KARL Sodium Chloride 0 ml 11/13/24 18:40 Normal Saline 10 Ml Vial IJ DIRECTED PRN PFSH Active Problems Active Problems: Problem Status Onset Code Spontaneous onset of labor Acute Maternal varicella, non-immune Acute O09.899, Z28.39 Rh negative status during Acute O26.899, Z67.91 BMI 40.0-44.9, adult Acute Z68.41 Acute Z34.90 Medical History Medical History (Updated 11/13/24 @ 13:56 by Petra Meza CNM) History of recurrent urinary tract infection CMT (Eewnpfy-Jmafu-Jujtb disease) 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, and myotonia congenita Callus of foot Overweight Overactive bladder Bilateral plantar wart Depression Pain, joint, knee, left Tobacco Smoking/Tobacco Use Status: Never Alcohol Alcohol Intake: current Substance Use Substance use: Never Substance use type: does not use Prental History History 2 5 Para 0 Hx # Term Pregnancies 0 Multiple births 0 Hx # Pregnancies 0 Ectopic pregnancies 0 AB induced 3 Hx Number of Living Children 0 AB spontaneous 1 Vital Signs and Lab Results Vital Signs Most Recent Vital Signs in EMR: Most Recent Vital Signs Temp Pulse Resp BP Pulse Ox 36.6 C 59 L 16 134/72 100 11/14/24 00:36 11/14/24 01:51 11/13/24 18:30 11/14/24 00:21 11/14/24 01:51 Lab Results 11/13/24 19:30 Blood Type / Crossmatch: 2 Antibody Screen NEGATIVE 11/13/24 Complete Blood Count: 2 White Blood Count 13.35 10^3/uL (4.4-10.8) H 11/13/24 19:30 Red Blood Count 3.97 10^6/uL (3.93-5.22) 11/13/24 19:30 Hemoglobin 11.7 g/dL (11.2-15.7) 11/13/24 19:30 Hematocrit 34.1 % (36.0-46.0) L 11/13/24 19:30 Platelet Count 225 10^3/uL (130-400) 11/13/24 19:30 Complete Metabolic Panel: 2 No Data to Display Liver Function Panel: 2 No Data to Display Coagulation Panel: 2 No Data to Display Cardiac Panel: 2 No Data to Display Arterial Blood Gas: 2 No Data to Display Venous Blood Gas: 2 No Data to Display Pancreas Panel: 2 No Data to Display Thyroid Panel: 2 No Data to Display Infectious Disease: 2 No Data to Display Blood Cultures: 2 No Data to Display Toxicology Panel: 2 No Data to Display Panel: 2 No Data to Display Anesthesia Assessment and Plan Anesthesia History Personal History: No History of Anesthesia Complications Family History: No Family History of Anesthesia Complications Exercise Tolerance Exercise Tolerance: Metabolic Equivalents>4 Cardiac & Pulmonary Exam Cardiac Exam: Normal S1/S2 Heart Sounds Pulmonary Exam: Clear Bilateral Breath Sounds Implantable Cardiac Device Does patient have a Pacemaker or an ICD?: No Airway Exam Known Difficult Airway: No Mallampati Class: 3 Mouth Opening: Normal (> 3cm) Thyromental Distance: Greater than 3 cm Neck Range of Motion: Full ROM Neck Circumference: Normal Teeth Condition: Normal Dentition ASA Classification ASA Score: ASA 3 Emergency Case?: No NPO Status NPO Status: Full Stomach Status Status: Confirmed Anesthesia Plan Resuscitation Status: Full Code Anesthesia Technique: Epidural Anesthesia Airway Planned: Natural Airway Pain Management: Epidural Monitors Used: Standard Monitors Preoperative Comments:: 34 yo female female requesting labor analgesia. last check 5 cm 100%, currently on pitocin. Sig PMHx: BMI >40, depression. Denies HTN, RAD/asthma. Plt: 225
[2024-11-14] MEDS: FentaNYL/ROPIvacaine 2 mcg/ml and 0.1% 200 ML CADD Cassette EP (02:31)
--- NOTE | 2024-11-14 02:44 | W.ANESNEU ---
Epidural/Spinal Catheter Date Performed: 11/14/24 Procedure Start: 02:19 Procedure Stop: 02:23 Requesting Provider: Petra Meza Procedure Location: Operating Room Reason Performed: Labor Epidural Standard Monitors Applied: ECG, Blood Pressure and SpO2 Patient Position: Sitting Sedation Given (Indicate Dose Given): No Sedation given Patient Mental Status: Awake Sterility: Hand Hygiene, Surgical Cap, Surgical Mask, Sterile Gloves, Sterile Drape/Sheet and Chlorhexidine Procedure Location: L3-L4 Interspace Epidural Needle: Tuohy 17 Guage Needle Length: 3.5 Inch Needle Approach: Midline Epidural Procedure: SANJIV to Saline Used and Epidural Catheter Placed (wire reinforced) Catheter Placed?: Catheter Placed Test Dose (Indicate Dose Given): 3ml 1.5% Lidocaine with 1:200K Epinephrine Given Loss of Resistance Depth (cm): 8 Catheter depth at skin (cm): 14 Dressing: Sorbaview Dressing Placed and Mastisol Used Epidural Provider Bolus (Indicate Dose Given): Total Ropivacaine 0.1% with Fentanyl 2mcg/ml Given from pump. (ml) Dose:: 7 mL Additives (Indicate Dose Given ): None Infusion Medication: Medication Infusion Began Medication Infusion: Ropivacaine 0.1% with Fentanyl 2mcg/ml Maintenance Infusion Rate (ml/hour): 10 PCEA Bolus Dose (ml): 5 Block Level: N/A Paresthesia: None Ultrasound: Used to ana site Number of Attempts (See previous attempts in note section): 1 Procedure Tolerated: No Complications Procedure Outcome: Successful Procedure Comment:: US used to ana at 3 levels with excellent epidural space visualization. Test dose negative. Visually more comfortable after loading dose. Numbness is roughly equal bilaterally (R>L). Educated on PCEA function. Performed By: Tray Drew
[2024-11-14] MEDS: Lactated Ringers 1,000 ML 125 ML IV (03:02)
[2024-11-14] MEDS: Oxytocin/Normal Saline 30 UNIT/500 ML BAG 95 UNITS IV (07:10)
--- NOTE | 2024-11-14 08:09 | W.OBDELIVERY ---
Date of service: 11/14/24 Time of Service: 08:09 OB Labor/ Delivery Information Baby A Delivery Delivery Method: Spontaneaous Presentation: Cephalic Vertex Position: Left Occipital Anterior Cord Description-Baby A: 3 Vessels Cord Description Comment: short cord Amniotic Fluid: Clear Estimated Blood Loss: 350 Delivery Outcome: Liveborn Infant Transferred: Remains with Mother Note: Olya received an epidural which had excellent effect. She was examined after epidural was placed and was 6 cms /-1 with bulging membranes. AROM performed for a mod amount of clear fluid. She rested well and awoke with back pain and a strong urge to push. FHTs 120 during first stage of labor. FHTs 120 in second stage. She progressed to full dilation and began pushing. Second stage huddle was done. Spontaneous delivery of infant delivered in JORGE LUIS position. Baby was placed on mother's abdomen and dried and stimulated. Spontaneous cry. Cord was clamped and cut by the baby's father. The placenta delivered spontaneously and appears to by intact with a three vessel cord. Pitocin 30 unit was administered IV before delivery of the placenta. The perineum was inspected and a second degree laceration was repaired. The baby did breastfeed. After delivery, Mother and baby and father of the baby were stable and bonding well in the delivery room and there were no complications. weight is pending. Providers Nurse Dark Room Attendant: Petra Meza Engineering Programmer: Tray Drew Nurse: Eloina Dee Nurse: Harry Pagan Labor/Delivery Information Number of Babies in Womb: 1 Steroids Given: None Reason Steroids Not Administered: N/A Group Beta Strep: Negative Antibiotics Administered: No Rubella Status: Immune Blood Type: A- Varicella Immunity: Nonimmune Medication in Delivery: yes Born En Route: No Maternal Complications: None Shoulder Dystocia: No Stages of Labor Onset of Labor Date: 11/13/24 Onset of Labor Time: 03:30 Complete Dilatation Date: 11/14/24 Complete Dilatation Time: 06:10 Labor - Stage 1 Duration: 26 hours and 40 minutes ROM Baby A: 11/14/24 ROM Baby A: 02:58 ROM Total Time- Baby A: [id number] Delivery Date-Baby A: 11/14/24 Infant Delivery Time-Baby A: 07:10 Labor Stage 2 Duration: 1 hours and 0 minutes Placenta Delivery Date-Baby A: 11/14/24 Placenta Delivery Time-Baby A: 07:16 Labor-Stage 3 Duration: 6 minutes Total Length of Labor-Baby A: 27 hours and 40 minutes Placenta Status: Delivered Baby A Gender: Male Gestational Status: Early Term (37-38.6 wks) Gestational Age in Weeks/Days: 38 Weeks and 5 Days Score-1 Minute Interval(Baby A) Heart Rate-1 minute: 100 BPM or Greater Respiratory Effort- 1 minute: Spontaneous/Strong Cry Muscle Tone-1 minute: Active Movement Reflex Response-1 minute: Prompt Response Color-1 minute: Bluish Hands or Feet Total Score-1 minute: 9 Score-5 Minute Interval(Baby A) Heart Rate- 5 minute: 100 BPM or Greater Respiratory Effort-5 minute: Spontaneous/Strong Cry Muscle Tone-5 minute: Active Movement Reflex Response-5 minute: Prompt Response Color-5 minute: Bluish Hands or Feet Total Score- 5 minute: 9 Interventions Repair of Laceration Type: Perineal, Laceration Extension: Second Degree. Sponge Count Correct: No Sponges Placed in Vagina, Sharp Count Correct: Yes. Laceration Repair Note: small 2nd degree laceration repaired with 3-0 vicryl rapide suture.
[2024-11-14] MEDS: Acetaminophen 325 MG TAB 650 MG PO ×2 (11:13→20:25)
[2024-11-14] MEDS: Dibucaine 1% 28 GM TUBE TP (11:13)
[2024-11-14] MEDS: Hamamelis Leaf/Glycerin 100 EACH BOX PR (11:14)
[2024-11-14] MEDS: Ibuprofen 600 MG TAB PO ×2 (14:30→20:25)
--- NOTE | 2024-11-14 14:32 | W.ANESPOSTOP ---
Postoperative Evaluation Date, Time and Location Date Performed: 11/14/24 Time Performed: 14:32 Patient Location: Obstetrics Vital Signs Most Recent Imported Vital Signs: Most Recent Vital Signs Temp Pulse Resp BP Pulse Ox 37.1 C 90 16 123/69 94 11/14/24 05:10 11/14/24 11:15 11/14/24 10:20 11/14/24 11:15 11/14/24 06:05 Pain Score Most Recent Pain Score: Most Recent Pain Score Pain Level 2 11/14/24 11:13 Assessment Mental Status: Awake (Alert & Oriented to Patient Baseline) Airway and Respiratory Function: Patent airway with normal (patient baseline) respiratory exam Cardiovascular Function: Hemodynamically Stable Hydration Status: Adequately Hydrated Nausea & Vomiting: No Nausea or Vomiting Pain: Pain is tolerable per patient Peripheral Nerve Block: Other (Epidural appropriately resolved, denied complaint, denied headache, denied backpain. Per RN catheter removed with tip intact.)
[2024-11-15 09:15] VITALS: BP 125/88; PULSE 89; RESP 16; TEMP 36.4; O2SAT 99
--- NOTE | 2024-11-15 09:15 | W.PM.OBPNV1 ---
Date of service: 11/15/24 Time of Service: 09:00 Assessment and Plan Assessment and plan (1) Term of male : Status: Acute Assessment and plan: A: PPD#1, going slowly Nml maternal recovery P: Offer Varicella vaccine prior to discharge Planning discharge tomorrow Routine PP care and support Undecided regarding contraception Subjective Subjective Patient comments: No complaints, Pain well controlled, Tolerating diet and Flatus present Patient's Mood: pleased baby status: Doing well, Nursing well, Rooming in and Strong Bonding Observed [place] feeding status: Exclusively breast feeding Narrative: Baby a bit sleepy today Exam Physical Exam Vital signs: Temp Pulse Resp BP Pulse Ox 97.5 F L 89 16 125/88 99 11/15/24 09:15 11/15/24 09:15 11/15/24 09:15 11/15/24 09:15 11/15/24 09:15 Vital Signs Reviewed: Yes Constitutional Constitutional: no acute distress and cooperative HEENT Exam HEENT Exam: Normal Neck Exam Neck Exam: Normal Breast Exam Bilateral: Breast Exam: Normal and Soft Nipple Exam: Normal and Uninjured Respiratory Exam Respiratory Exam: Normal Cardiovascular Exam Cardiovascular Exam: Normal Abdominal Exam Abdomen: Other (soft, nontender) Fundal Exam Fundus: Below Umbilicus and Firm Rectal Exam Rectal Exam: Normal Exam Patient deferred: external exam Perineum: Repair Intact Extremities Exam Extremity Exam: Normal, Full ROM and Warm to Touch Back/Spine/Pelvis Exam Back Exam: Normal Skin Exam Skin Exam: Normal Neurological Exam Neurological Exam: Normal Psychiatric Exam Psychiatric Exam: Normal Results Hemoglobin/Hematocrit: Hgb 11.7 g/dL (11.2-15.7) 11/13/24 19:30 Hct 34.1 % (36.0-46.0) L 11/13/24 19:30 Abnormal Lab Findings: Abnormal Labs 11/13/24 19:30 WBC 13.35 H Hct 34.1 L MPV 11.3 H
[2024-11-15] MEDS: Ibuprofen 600 MG TAB PO ×2 (09:25→19:50)
[2024-11-15] MEDS: Acetaminophen 325 MG TAB 650 MG PO ×2 (09:25→19:50)
[2024-11-15] MEDS: RHO(D) Immune Globulin 1,500 UNIT Syringe 1500 UNIT IM (14:37)
[2024-11-15 20:10] VITALS: BP 127/79; PULSE 77; RESP 18; TEMP 36.8; O2SAT 98
[2024-11-16 08:00] VITALS: BP 125/75; PULSE 68; RESP 12; TEMP 36.7
[2024-11-16] MEDS: Acetaminophen 325 MG TAB 650 MG PO (08:05)
[2024-11-16] MEDS: Ibuprofen 600 MG TAB PO (08:06)
[2024-11-16] MEDS: Docusate Sodium 100 MG CAP PO (08:06)
--- NOTE | 2024-11-16 10:15 | DSE_ITS ---
Date of service: 11/16/24 Time of Service: 10:15 DS: Diagnosis Discharge Diagnosis (1) Term of male : Status: Acute Asessment and Plan: Caring for baby independently. Pain is managed well with oral analgesics. Voiding without difficulty. Formula feeding and giving supplemental pumped breast milk. Feeding plan in place with support of Carly HUTSON A - stable mother and baby , Post day 2, Varicella non-immune, Rh Neg P - Discharge to home. Routine instructions. [facility] Rhogam given during admission. Patient will need Varicella vaccine at later visit Discharge Plan Disposition Patient Disposition: Home Condition: Good Discharge Details Reason For Visit: Labor Admit Date/Time: 11/13/24 13:45 Admit Provider: Petra Meza Attending Provider: Petra Meza Primary Care Provider: Malcolm [facility] Hospital Course Hospital Course: without complication under epidural anesthesia, nml course, discharge at 48 hrs Home Meds and New Rx's Prescriptions: No Action PNV 119-iron fum-folic acid 29 mg iron- 1 mg tablet PO cranberry extract 500 mg tablet 500 mg PO DAILY Rx Instructions: administer with meals docusate sodium [Colace] 100 mg capsule 100 mg PO BID Qty: 60 2RF Discharge Instructions Additional Instructions: Please keep 2 & 6 week appointmants with your inventory worker, call for any and all concerns. Stand Alone Forms: BC Instructions, BC Post Vaginal Deliver Activity:: Activity as Tolerated Equipment/Supplies:: No Equipment Needed Diet:: Normal Diet Discharge Orders Discharge Orders: Discharge Order (Routine); Ordered 11/16/24 Ordered By: Bonnie Dawkins OB:DS Summary Summary Vaginal Delivery Method: Spontaneaous Episiotomy Description: None Laceration Description: Perineal Laceration Extension: Second Degree Contraception Discussed Contraception Discussed: Yes Contraceptive Plan: Undecided, [place] Gender-Baby A: Male weight: 8 lb 3.219 oz Status at Discharge Functional status at discharge: independent ambulation Overall status at discharge: patient is progressing back to baseline Mental Status: mental status grossly normal Speech and Movement: speech and movement normal Mood: congruent mood Affect: normal affect Quality:SDOH Health Related Social Needs: No Data to Display Exam Physical Exam Vital signs: Temp Pulse Resp BP Pulse Ox 98.2 F 77 18 127/79 98 11/15/24 20:10 11/15/24 20:10 11/15/24 20:10 11/15/24 20:10 11/15/24 20:10 Constitutional Constitutional: no acute distress and cooperative HEENT Exam HEENT Exam: Normal Neck Exam Neck Exam: Normal Respiratory Exam Respiratory Exam: Normal Cardiovascular Exam Cardiovascular Exam: Normal Abdominal Exam Abdomen: Other (soft, nontender) Fundal Exam Fundus: Below Umbilicus and Firm Rectal Exam Rectal Exam: Normal Exam Patient deferred: external exam Perineum: Repair Intact Extremities Exam Extremity Exam: Normal, Full ROM and Warm to Touch Back/Spine/Pelvis Exam Back Exam: Normal Skin Exam Skin Exam: Normal Neurological Exam Neurological Exam: Normal Psychiatric Exam Psychiatric Exam: Normal PFSH All Active Problems (Updated 11/16/24 @ 10:21 by Bonnie Dawkins CNM) Term of male (Acute) Maternal varicella, non-immune (Acute) Rh negative status during (Acute) Medical History (Updated 11/16/24 @ 10:21 by Bonnie Dawkins CNM) BMI 40.0-44.9, adult History of recurrent urinary tract infection 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, and myotonia congenita Callus of foot Overweight Overactive bladder Bilateral plantar wart Depression Pain, joint, knee, left Family History (Updated 05/07/24 @ 15:51 by Petra Meza CNM) Mother CMT (Ojqawyr-Zafry-Zaqeu disease) Sister CMT (Zfqrqjs-Jhngg-Odgcf disease) Uncle Multiple sclerosis Social History (Updated 05/17/23 @ 15:38 by Emmy Gomes) Smoking/Tobacco Use Status: Never Smoking risk assessment performed?: Yes Alcohol Intake: current Drug use: Never Substance use type: does not use Household members: significant other and children Housing: house Sexually active: Yes Do you think of yourself as: straight/heterosexual Current gender identity: female What is your relationship status?: living with partner Panel score (0-1 are the most socially isolated patients): 1 What type of physical activity do you participate in: regular exercise Seatbelt use: always Helmet use: Yes Drive intox or ride w/intox emergency detail driver: No Do you feel safe at home: Yes Do you feel safe in your relationship?: Yes History History 5 Para 0 Hx # Term Pregnancies 0 Multiple births 0 Hx # Pregnancies 0 Ectopic pregnancies 0 AB induced 3 Hx Number of Living Children 0 AB spontaneous 1 DS: Data Vitals/I&O Vitals and I&O: Vital Signs Temperature 98.2 F 11/15/24 20:10 Temperature 98.1 F 11/13/24 15:09 Temperature Source Oral 11/15/24 20:10 Pulse 77 11/15/24 20:10 Pulse 83 11/13/24 15:09 Pulse Rhythm Regular 11/15/24 20:10 Respiratory Rate 18 11/15/24 20:10 Respiratory Depth Normal 11/14/24 06:43 Blood Pressure 127/79 11/15/24 20:10 Blood Pressure 130/70 11/13/24 15:09 Blood Pressure Mean 95 11/15/24 20:10 Pulse Oximetry 98 11/15/24 20:10 Pain Level 4 11/16/24 08:06 Intake & Output 11/15/24 11/15/24 11/16/24 11:59 23:59 11:59 Other: Urine Color Pale Data Completed and Pending Labs on day of discharge: Labs from last 24 hours 11/14/24 11/13/24 07:35 19:30 Screen Negative Rhogam Unit Number [id number] Unit Expiration Date 11/28/2024 Product Lot # [id number]
--- NOTE | 2024-11-16 10:16 | W.PM.OBPNV1 ---
Date of service: 11/16/24 Time of Service: 10:16 Assessment and Plan Assessment and plan (1) Term of male : Status: Acute (2) Rh negative status during : Status: Acute Assessment and plan: Rhogam given (3) Maternal varicella, non-immune: Status: Acute Assessment and plan: Due for vaccination at 2wk PP visit Subjective Subjective Patient comments: No complaints, Pain well controlled, Tolerating diet and Flatus present; no Bowel Movement [place] baby status: Doing well, Bottle feeding well, Supplemental feeding going well, Rooming in and Strong Bonding Observed [place] feeding status: Breast and formula feeding and Pumping and bottle feeding Narrative: Seen by Carly HUTSON this morning, feeding plan in place due to infant with ineffective latch Exam Physical Exam Vital signs: Temp Pulse Resp BP Pulse Ox 98.2 F 77 18 127/79 98 11/15/24 20:10 11/15/24 20:10 11/15/24 20:10 11/15/24 20:10 11/15/24 20:10 Constitutional Constitutional: no acute distress and cooperative HEENT Exam HEENT Exam: Normal Neck Exam Neck Exam: Normal Respiratory Exam Respiratory Exam: Normal Cardiovascular Exam Cardiovascular Exam: Normal Abdominal Exam Abdomen: Other (soft, nontender) Fundal Exam Fundus: Below Umbilicus and Firm Rectal Exam Rectal Exam: Normal Exam Patient deferred: external exam Perineum: Repair Intact Extremities Exam Extremity Exam: Normal, Full ROM and Warm to Touch Back/Spine/Pelvis Exam Back Exam: Normal Skin Exam Skin Exam: Normal Neurological Exam Neurological Exam: Normal Psychiatric Exam Psychiatric Exam: Normal Results Hemoglobin/Hematocrit: Hgb 11.7 g/dL (11.2-15.7) 11/13/24 19:30 Hct 34.1 % (36.0-46.0) L 11/13/24 19:30 Abnormal Lab Findings: Abnormal Labs 11/13/24 19:30 WBC 13.35 H Hct 34.1 L MPV 11.3 H Hemorrrhage Note IV Site Forearm: IV Catheter Gauge: 18
== END 2024-11-16 11:15 | disposition home or self-care (01) | DRG 807 ==
LOC: BCD 14:02 → OBS 14:02
PROVIDERS: Admitting Provider Advanced Practice Midwife; PCP Physician Assistant; Visit Provider Advanced Practice Midwife
DX: Z37.0 Single live birth; O36.63X0 Maternal care for excessive fetal growth, third trimester, not applicable or unspecified; O26.893 Other specified pregnancy related conditions, third trimester; O40.3XX0 Polyhydramnios, third trimester, not applicable or unspecified; Z14.8 Genetic carrier of other disease; F32.A Depression, unspecified; O99.344 Other mental disorders complicating childbirth; Z67.91 Unspecified blood type, Rh negative; Z28.39 Other underimmunization status; Z3A.38 38 weeks gestation of pregnancy; O70.1 Second degree perineal laceration during delivery
CPT/HCPCS: 36415; 85027; 85461; 86850; 86900; 86901; 90384; 59025; J2790

== ENCOUNTER 2025-01-01 14:17 | Outpatient (REF) | payer MEDICAID, SELFPAY ==
--- NOTE | 2025-01-01 13:30 | PAPFT_PTH ---
PATIENT: Olya Trujillo LOC: [facility] U#:[id number] AGE/SX: 34/F ROOM: RE01/01/[address]: Petra Meza : 1990 BED: DIS: 01/01/2025 SPEC #: [id number] RECD: 01/01/25 17:05 STATUS: MASSIMO REQ #: [id number] MEGHAN: 01/01/25 13:[address]: Petra Meza DEPT: [facility] Cytology RECD BY: Lisa Tena ENTERED: 01/01/25 17:05 SP TYPE: PAPFT OTHR DR: Malcolm Spring Tissues: 1 - CX/ENDOCX FOR PAP SMEARS Procedures: PAP THIN PREP/[facility] Screening HPV DNA PROBE Comments: [id number] (HPV 16 & 18/45)
== END 2025-01-01 14:18 | disposition home or self-care (01) ==
LOC: LBN 14:17
PROVIDERS: PCP Physician Assistant; Visit Provider Advanced Practice Midwife
DX: Z12.4 Encounter for screening for malignant neoplasm of cervix (principal); Z01.419 Encounter for gynecological examination (general) (routine) without abnormal findings
CPT/HCPCS: 88142; 87624

== ENCOUNTER 2025-04-05 22:51 | Outpatient (REF) | payer MEDICAID, SELFPAY ==
[2025-04-05 16:21] LABS: FREE T4 0.74 ng/dL (0.76-1.46); TSH 1.31 uIU/mL (0.36-3.74)
== END 2025-04-05 22:52 | disposition home or self-care (01) ==
LOC: NCHCN 22:51
PROVIDERS: PCP Physician Assistant; Visit Provider Physician Assistant
DX: R53.83 Other fatigue (principal)
CPT/HCPCS: 84439; 84443

== ENCOUNTER → 2025-10-02 09:52 | Outpatient (CLI) | payer MEDICAID, SELFPAY ==
--- NOTE | 2025-10-02 09:45 | DI.US_ITS ---
Exam(s) US OB 1ST TRIMESTER TWINS EXAM: US OB 1ST TRIMESTER TWINS CLINICAL HISTORY: Z68.41,O46.90 Vaginal Bleeding r/o SAB, viability. TECHNIQUE: First trimester obstetrical ultrasound was performed. COMPARISON: US POCUS EXAM from 10/02/2025 FINDINGS: There are 2 intrauterine gestational sacs.. Both sacs measure 1 cm maximum measurement and appear unremarkable. There is a 2 mm yolk sac in the right-side gestational sac (A). A yolk sac is not (yet) seen in the other gestational sac (B). No pole is identified in either sac at this time. There is no evidence of subchorionic hemorrhage. Maternal ovaries: Right ovary measures 2.7 x 1.1 x 1.4 cm Left ovary measures 3.9 x 2.0 x 2.4 cm and contains a 1.9 x 1.7 cm cyst. There is no fluid in the cul-de-sac and adnexal regions. IMPRESSION:: Twin gestational sacs as described above. Most probably will be dichorionic/diamniotic twin gestation. There is no evidence of subchorionic hemorrhage. There is cyst in the left maternal ovary measuring 19 x 17 mm. There is no free fluid evident in the pelvis. DATA REPOSITORY:
== END ==
LOC: DI 09:52
PROVIDERS: PCP Physician Assistant; Visit Provider Advanced Practice Midwife
DX: O46.91 Antepartum hemorrhage, unspecified, first trimester (principal); Z68.41 Body mass index [BMI] 40.0-44.9, adult
CPT/HCPCS: 76801; 76802